=== PATIENT | female | born 1945 | race Caucasian/White ===

== ENCOUNTER → 2018-01-14 16:57 | Outpatient (CLI) | payer MEDICARE, SELFPAY | PROVIDERS: Family Provider Family Medicine; PCP Family Medicine; Visit Provider Family Medicine | DX: N39.0 Urinary tract infection, site not specified (principal); Z87.442 Personal history of urinary calculi | CPT/HCPCS: 87086; 87088 ==

== ENCOUNTER → 2018-03-08 14:01 | Outpatient (CLI) | payer MEDICARE, SELFPAY ==
[2018-03-08 15:34] LABS: Absolute Neutrophil Count 3.4 X10^3/uL (2.0-7.7); Basophil# 0.04 X10^3/uL; Basophil% 0.6 % (0-1); Eosinophil# 0.12 X10^3/uL; Eosinophils% 1.8 % (0-5); Hematocrit 40.8 % (37-47); Hemoglobin 13.5 g/dl (12.0-15.0); Lymphocyte % 40.7 % (19-41); Mean Corp Hgb Conc 33.1 g/gl (32-36); Mean Corpuscular Hgb 30.3 pg (27.0-32.0); Mean Corpuscular Volume 91.7 fL (81-99); Mean Platelet Vol. 12.1 fl (6.2-12.0); Monocyte# 0.41 X10^3/uL; Monocyte% 6.2 % (0-10); Neutrophil # 3.36 X10^3/uL (2.7-7.7); Neutrophil % 50.5 % (47-70); Platelet Count 200 K/mm3 (150-450); RBC Distribution Width CV 13.2 % (11.6-14.6); RBC Distribution Width SD 43.7 fl (35.1-43.9); Red Blood Count 4.45 M/mm3 (4.2-5.4); White Blood Count 6.6 K/mm3 (4.4-11.0)
[2018-03-08 15:39] LABS: POSITIVE COUNT NO; POSITIVE DIFFERENTIAL NO; POSITIVE MORPHOLOGY NO
[2018-03-08 15:56] LABS: Anion Gap 5 (5-15); BUN 19 mg/dL (7-18); BUN/Creat Ratio 21.8 RATIO (10-20); Calcium,Total 9.3 mg/dL (8.5-10.1); Chloride 108 mmol/L (98-107); Creatinine, Serum 0.87 mg/dL (0.55-1.02); EST Glomerular Filtration Rate 68 mL/min (>60); Est Glom Filt Rate - Afr Amer 82 mL/min (>60); Glucose 81 mg/dL (74-106); Potassium 4.3 mmol/L (3.5-5.1); Sodium Level 144 mmol/L (136-145); Thyroid Stim Hormone (TSH) 3.18 uIU/mL (0.358-3.74)
[2018-03-08 16:21] LABS: Vitamin D,25 Hydroxy 25.1 ng/mL (29.95-100.01)
== END ==
PROVIDERS: Visit Provider Family Medicine
DX: I10 Essential (primary) hypertension (principal); E55.9 Vitamin D deficiency, unspecified; E78.5 Hyperlipidemia, unspecified
CPT/HCPCS: 36415; 80048; 82306; 84443; 85025

== ENCOUNTER → 2018-08-30 13:31 | Outpatient (CLI) | payer MEDICARE, SELFPAY ==
[2018-08-30 15:54] LABS: Anion Gap 6 (5-15); BUN 16 mg/dL (7-18); BUN/Creat Ratio 20.6 RATIO (10-20); Chloride 106 mmol/L (98-107); Creatinine, Serum 0.78 mg/dL (0.55-1.02); EST Glomerular Filtration Rate 78 mL/min (>60); Est Glom Filt Rate - Afr Amer 94 mL/min (>60); Glucose 89 mg/dL (74-106); Potassium 3.9 mmol/L (3.5-5.1); Sodium Level 141 mmol/L (136-145); T4 Free Direct 1.02 ng/dL (0.76-1.46); Thyroid Stim Hormone (TSH) 2.14 uIU/mL (0.358-3.74)
--- OUTSIDE RECORDS SUMMARY | 2018-12-04 03:59 | XMS RPT_ITS ---
:1945 Author Organization OHIP Support Name Relationship Address Phone NINO STAFFORD Unavailable [address] + [place] [address] AMBER STAFFORD Unavailable [address] + [place] [address] R Unavailable Unavailable Unavailable RIVERA NINO Unavailable [address] + [place] [address] RIVERA, AMBER Unavailable [address] + [place] [address] R Unavailable Unavailable Unavailable NINO STAFFORD Unavailable [address] + [place] [address] RIVERA, AMBER Unavailable [address] + [place] [address] R Unavailable Unavailable Unavailable RIVERA NINO Unavailable [address] + [place] [address] RIVERA, AMBER Unavailable [address] + [place] [address] R Unavailable Unavailable Unavailable NINO STAFFORD Unavailable [address] + [place] [address] RIVERA, AMBER Unavailable [address] + [place] [address] R Unavailable Unavailable Unavailable NINO STAFFORD Unavailable [address] + [place] [address] RIVERA, AMBER Unavailable [address] + [place] [address] R Unavailable Unavailable Unavailable Care Team Providers Name Role Phone Rolan Temple Attending Unavailable Rolan Temple Primary Care Unavailable Rolan Temple Attending Unavailable Rolan Temple Primary Care Unavailable Rolan Temple Attending Unavailable Rolan Temple Primary Care Unavailable Chante Iverson Attending Unavailable Rolan Temple Referring Unavailable Rolan Temple Attending Unavailable Chante Iverson Attending Unavailable Rolan Temple Referring Unavailable PROBLEMS PROBLEMS DATE TYPE CONDITION / CODE ATTENDING STATUS SOURCE 08/30/2018 Unknown I10 - Essential Rolan Temple Active [place] (primary) Community hypertension / Hospital I10(ICD-10) Repository 08/30/2018 Unknown E55.9 - Vitamin D Rolan Temple Active [place] deficiency, Community unspecified / Hospital E55.9(ICD-10) Repository 08/30/2018 Unknown R41.840 - Attention Rolan Temple Active [place] and concentration Community deficit / Hospital R41.840(ICD-10) Repository 08/30/2018 Unknown E78.5 - Rolan Temple Active [place] Hyperlipidemia, Community unspecified / Hospital E78.5(ICD-10) Repository 02/28/2018 Unknown I25.10 - Zayra Active [place] Atherosclerotic heart Chante Santiago [facility] disease [facility] coronary artery Repository without angina pectoris / I25.10(ICD-10) 02/28/2018 Unknown I35.0 - Nonrheumatic Zayra Active [place] aortic (valve) Chante Santiago [facility] stenosis / Hospital I35.0(ICD-10) Repository 02/28/2018 Unknown E78.00 - Pure Iverson, Active [place] hypercholesterolemia, Chante Santiago [facility] unspecified / Hospital E78.00(ICD-10) Repository 01/15/2018 Unknown N39.0 - Urinary tract Rolan Temple Active [place] infection, site not Community specified / Hospital N39.0(ICD-10) Repository 01/15/2018 Unknown Z87.442 - Personal Rolan Temple Active [place] history of urinary Community calculi / Hospital Z87.442(ICD-10) Repository PROCEDURES PROCEDURES No Procedure Records FoundRESULTS RESULTS CARDIOLOGY VISIT Observed: 09/23/2018 Status: F Source: [place] REPORT 6:44 AM [facility] REPOSITORY [facility] [address] [place] [address] [address] [place] [address] OFFICE VISIT Date of Service: 09/19/18 MR#: [id number] Acct: [id number] Name: CAT STAFFORD Rep #: [id number] : 1945 Provider: Chante Iverson Age/Sex: 73/F Location: [facility] Status: Signed HPI HPI Details: CAT STAFFORD, is a 73 F who presents to the office today for a follow-up visit. She is a lady with a history of coronary artery disease status post carotid bypass surgery with a left internal mammary artery to left anterior descending artery. She subsequently had an angioplasty and stenting of her circumflex artery. She also has a history of nonrheumatic aortic stenosis, hypertension and hyperlipidemia. From a cardiac standpoint, patient is doing well. She has lost 18 pounds this last year, a total of 36 lbs over the last 2 years. This was intentional. She has adjusted her diet. She does not have any chest discomfort/heaviness/tightness. Her exercise tolerance is stable for her age. She exercises 100 minutes 4 times a week. She does not have any worsening symptoms of shortness of breath. She does not have any orthopnea. She denies PND. She does not have any symptoms of congestive heart failure. She does not have any palpitations that she is aware of. She does not have any lightheadedness or dizziness. She does not have any near-syncope or syncope. She does not have any lower extremity edema. She does not have any symptoms of claudication. She will be going to [place] for 6 weeks. Intake Vital Signs09/19/18 Height 5 ft 3 in 09/19/18 Weight: 148 lb 09/19/18 Body Mass Index (BMI) 26.2 09/19/18 Blood Pressure 138/80 H 09/19/18 Blood Pressure Location Lt brachial Intake Visit Reasons: 6 M FU (we moved from [facility]) Ladle Operator Required: No Accompanied by: none Is patient in pain?: No Allergies codeine Allergy (Verified 09/19/18 09:38) Unknown Sulfa (Sulfonamide Antibiotics) Allergy (Verified 09/19/18 09:38) Unknown atorvastatin [From Lipitor] Adverse Reaction (Severe, Verified 09/19/18 09:38) Myalgias Medications Clopidogrel Bisulfate [Plavix] 75 mg PO DAILY 09/24/13 [History Confirmed 09/19/18] Metoprolol(XL)Succ [Toprol Xl] 25 mg PO BID 09/24/13 [History Confirmed 09/19/18] Ultra [facility]ens 1 tab PO DAILY 09/24/13 [History Confirmed 09/19/18] aspirin 81 mg tablet,delayed release 81 mg PO QDAY 08/28/17 [History Confirmed 09/19/18] lisinopril 5 mg tablet 5 mg PO QDAY 08/28/17 [History Confirmed 09/19/18] pantoprazole DR 40 mg granules delayed-release for susp in packet 40 mg PO QDAY 08/28/17 [History Confirmed 09/19/18] pravastatin 40 mg tablet 40 mg PO QHS 08/28/17 [History Confirmed 09/19/18] cholecalciferol (vitamin D3) 400 unit capsule 5,000 unit PO DAILY cap 09/19/18 [History Confirmed 09/19/18] ON LICENSE OF [facility] Medical History Encounter for long-term (current) use of other medications (Chronic) Diabetes mellitus, type II (Chronic) Hyperlipidemia (Chronic) Hypertension (Chronic) Paroxysmal ventricular tachycardia (Chronic) Nonrheumatic aortic (valve) stenosis (Chronic) Atherosclerotic heart disease of [place] coronary artery without angina pectoris (Chronic) Surgical History History of coronary artery stent placement (Chronic) H/O single vessel coronary artery bypass (Chronic) Family History Father CAD (coronary artery disease) Mother Atrial fibrillation Cancer Sister Atrial fibrillation Hypertension Social History Smoking Status: Never smoker ROS Const Const: Negative for body ache, fever(s), chills, night sweats, daytime sleepiness, difficulty sleeping, weight gain, weight loss, increased appetite, poor appetite, anorexia or other ENT ENT: Negative for balance problems Cardio Chest Pain: No Edema: None Muscle aches with walking: None Resp Respiratory: Negative for SOB with activity, SOB at rest, SOB orthopnea\SOB lying down, Coughing up blood/hemoptysis, chest congestion, pain on inspiration, snoring, stridor, wheezing, crackles, paroxysmal nocturnal dyspnea or other GI GI: Negative nausea, vomiting, heartburn, constipation, belching, bloating, cramping, vomiting blood/hematemesis, bright, red blood in stools, black,tarry stools, loose stools, Difficulty Swallowing or other Musc Musc: Negative for balance problems Cardiology Exam Const Appearance: cooperative, healthy appearing, well developed, well groomed and no acute distress Nutritional Appearance: well nourished and average body habitus Orientation: alert, awake and oriented x3 Head Head: normal to inspection, normocephalic and atraumatic Ears: hearing grossly normal bilaterally and external ears normal Nose: external nose normal, nares normal, no nasal discharge Face and Sinus: face symmetric Mouth: moist mucous membranes Teeth and gingiva: dentition normal Throat: posterior oropharynx normal, tonsils normal and uvula midline Eyes General: appearance normal, both eyes and all related structures Eyelids: eyelids normal Conjunctivae: conjunctivae normal Pupils: PERRL, normal by confrontation and accommodation normal EOM: EOM intact bilaterally Neck Neck: normal visual inspection, trachea midline and no JVD JVD: +5 Carotids: normal carotid upstroke and bounding pulses Chest Chest inspection: normal inspection of the chest, symmetric chest movement and normal respiratory effort Auscultation: Bilateral: Clear to Auscultation Cardio Palpation: normal PMI Rate: regular rate Rhythm: regular rhythm Heart sounds: S1 normal, S2 normal and murmur Murmur: soft, early systolic, LLSB and Grade 2/6 GI GI: normal to inspection, soft, no hepatosplenomegaly and bowel sounds present Neuro General: alert, awake, oriented x3, no focal sensory deficit, gait normal and moves all extremities Skin Skin: no rashes or lesions noted Extremities Pulses: Normal: Right Femoral Pulse, Left Femoral Pulse, Right Dorsalis Pedis Pulse, Left Dorsalis Pedis Pulse, Right Posterior Tibial Pulse, Left Posterior Tibial Pulse, Right Radial Pulse, Left Radial Pulse Lower Extremity Edema: None: Bilateral Musculoskel Musculoskeletal: No joint tenderness Psych Psychological: normal affect Assessment AND Plan 1. Atherosclerosis of [place] coronary artery of [place] heart without angina pectoris I25.10 KIM Calderon Stable, from a cardiac standpoint patient does not have any symptoms of angina. We recommend that they continue with current aggressive medical management and risk factor modification. 2. Nonrheumatic aortic (valve) stenosis I35.0 KIM Calderon Recent echocardiogram has been reviewed. We will continue to monitor by history, exam and echocardiograms as deemed appropriate. 3. Essential hypertension I10 KIM Calderon Blood pressure is well controlled on current medications, we do not recommend any changes at this time. 4. Pure hypercholesterolemia E78.00 KIM Calderon Recent lipid profile demonstrates total cholesterol 183, HDL 72, LDL 89. Will not make any adjustments. 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 transplanted heart: [place] heart Nonrheumatic aortic (valve) stenosis I35.0 Essential hypertension I10 Hypertension type: essential hypertension Pure hypercholesterolemia E78.00 Hyperlipidemia type: pure hypercholesterolemia Coding Level of Care Code Off vis,est,level 3 Diagnoses Atherosclerosis of [place] coronary artery of [place] heart without angina pectoris I25.10 [place] vs. transplanted heart: [place] heart Nonrheumatic aortic (valve) stenosis I35.0 Essential hypertension I10 Hypertension type: essential hypertension Pure hypercholesterolemia E78.00 Hyperlipidemia type: pure hypercholesterolemia Supplemental Info Supplemental Information Stress test in 2014 was negative for ischemia at a moderate workload. Echocardiogram in 2013 demonstrated normal LV size with an estimated ejection fraction of 65%. Mild tricuspid insufficiency. RVSP 28 mmHg. Labs LDL Cholesterol 89 mg/dL (0-130) 08/06/17 HDL Cholesterol 72 mg/dL (40-) 08/06/17 Triglycerides 110 mg/dL (-199) 08/06/17 VLDL Cholesterol 22 mg/dL (5-40) 08/06/17 09/19/18 1017 <Electronically signed by Chante ALVAREZ> Date Chante ALVAREZ 09/23/18 0644<Electronically signed by Abel Weems MD> Cosigner Signature: Date (if applicable) Abel Weems MD CC: Rolan Temple MD SCREENING MAMM (CAD), Observed: 09/16/2018 Status: F Source: [place] BILAT 12:47 PM [facility] REPOSITORY [facility] Imaging Services [address] [place] [id number] SCREENING MAMM (CAD), BILAT MR#: [id number] Acct: [id number] Name: CAT STAFFORD Rep #: [id number] : 1945 F 73 From: Donovan Roche MD PCP: Rolan Temple MD Status: REG CLI Study: SCREENING MAMM (CAD), BILAT Date of Exam: 09/16/18 Exam# [id number] Ordering Dr: Rolan Temple MD MAMMOGRAPHY - BILATERAL SCREENING REASON FOR EXAM: Female, 73 years old. Routine annual screening examination. PERTINENT HISTORY: Non-contributory. TECHNIQUE: Digital bilateral breast jay (3D mammographic acquisition) in the CC and MLO projections. 2-D mediolateral oblique (MLO) and craniocaudad (CC) views of both breasts were obtained. CAD: Full Field Digital Mammography with Computer Added Detection was performed. COMPARISON: Comparison is made with prior study dated June 29, 2017 and June 26, 2016. FINDINGS: Breast Composition: The breasts are almost entirely fatty. There are no dominant masses or suspicious calcifications. Stable 5 mm well-defined nodule in the upper outer aspect of the right breast. Stable small benign-appearing bilateral axillary lymph nodes. No other significant abnormalities are identified. There has been no significant change since the prior study. BI/SCREENING MAMM (CAD), BILAT IMPRESSION: Stable bilateral screening mammogram. Yearly follow-up mammogram recommended. (A) ASSESSMENT CATEGORY: BIRADS Category 2: Benign. A letter regarding these results will be sent to the patient by the facility within 30 days. Approximately 10% of breast cancers are not detected by mammography. A normal mammogram should not delay biopsy of a clinically suspicious abnormality. [id number] Electronically Signed: Donovan Roche MD at 14:42 EST Tel [phone], Service support , CC: Rolan Temple MD [employer]: Signed BASIC METABOLIC Collected: 08/30/2018 Status: F Source: [place] PROFILE (BMP) 1:35 PM [facility] REPOSITORY TYPE CODE TESTS RESULT OUT OF RANGE REFERENCE UNITS LAB L501.0100 74-106 mg/dL Normal GLU 89 Result Comment: Please note revised GLUCOSE reference range effective 2017. LAB L501.1000 7-18 mg/dL Normal BUN 16 LAB L501.1100 0.55-1.02 mg/dL Normal CREAT,SERUM 0.78 Result Comment: The validity of the calculated GFR AND GFRAA in patients over 70 years has not been determined. Clinical correlation is essential. LAB L501.1110 >60 mL/min Normal EST GFR 78 Result Comment: Non- GFR Calc LAB L501.1115 >60 mL/min Normal EST GFR - AA 94 Result Comment: GFR Calc LAB L501.1300 10-20 RATIO High BUN/CRE 20.6 LAB L501.2200 8.5-10.1 mg/dL CA Normal 9.0 LAB L501.5300 136-145 mmol/L NA Normal 141 LAB L501.5600 3.5-5.1 mmol/L K Normal 3.9 LAB L501.5900 98-107 mmol/L CL Normal 106 LAB L501.6100 21.0-32.0 mmol/L Normal CO2 29.0 LAB L501.6200 5-15 Normal GAP 6 Performed By: #### L500.2500, L501.9520, L506.0400 #### [facility] [address] [place], [address] THYROID STIM HORMONE Collected: 08/30/2018 Status: F Source: [place] (TSH) 1:35 PM [facility] REPOSITORY TYPE CODE TESTS RESULT OUT OF RANGE REFERENCE UNITS LAB L501.9520 0.358-3.74 uIU/mL Normal TSH 2.14 Performed By: #### L500.2500, L501.9520, L506.0400 #### [facility] [address] [place], [address] T4 FREE DIRECT Collected: 08/30/2018 Status: F Source: [place] 1:35 PM [facility] REPOSITORY TYPE CODE TESTS RESULT OUT OF RANGE REFERENCE UNITS LAB L506.0400 0.76-1.46 ng/dL Normal T4 FREE 1.02 DIRECT Performed By: #### L500.2500, L501.9520, L506.0400 #### [facility] [address] [place], [place], [address] VITAMIN D,25 HYDROXY Collected: 08/30/2018 Status: F Source: [place] 1:35 PM [facility] REPOSITORY TYPE CODE TESTS RESULT OUT OF RANGE REFERENCE UNITS LAB L506.1000 29.95-100.01 ng/mL Normal Vitamin D 37.0 25-OH Result Comment: Vitamin D 25(OH) Status Range Deficiency <20 ng/mL (50nmol/L) Insuffciency 20 - 30 ng/mL (50 - 75 nmol/L) Sufficiency 30 - 100 ng/mL (75 - 250 nmol/L) Toxicity >100 ng/mL (>250 nmol/L) Performed By: #### L506.1000 #### [facility] [address] [place], [place], [address] CBC W/DIFF, AUTOMATED Collected: 03/08/2018 Status: F Source: [place] 2:04 PM [facility] REPOSITORY TYPE CODE TESTS RESULT OUT OF RANGE REFERENCE UNITS LAB L100.1000 4.4-11.0 K/mm3 Normal WBC 6.6 LAB L100.1200 4.2-5.4 M/mm3 Normal RBC 4.45 LAB L100.1300 12.0-15.0 g/dl Normal HGB 13.5 LAB L100.1400 37-47 % Normal HCT 40.8 LAB L100.1500 81-99 fL Normal MCV 91.7 LAB L100.1600 27.0-32.0 pg Normal MCH 30.3 LAB L100.1700 32-36 g/gl Normal MCHC 33.1 LAB L100.1810 11.6-14.6 % Normal RDW CV 13.2 LAB L100.1820 35.1-43.9 fl Normal RDW SD 43.7 LAB L100.1900 150-450 K/mm3 Normal PLT 200 LAB L100.2000 6.2-12.0 fl High MPV 12.1 LAB L100.2100 47-70 % Normal NEUT% 50.5 LAB L100.2200 19-41 % Normal LY% 40.7 LAB L100.2300 0-10 % Normal MONO% 6.2 LAB L100.2400 0-5 % Normal EO% 1.8 LAB L100.2500 0-1 % Normal BASO% 0.6 LAB L100.2550 0.0-0.9 % Normal IM GRAN % 0.200 Result Comment: IG% - Immature Granulocytes (promyelocytes, myelocytes and metamyelocytes) > 1% indicates that a LEFT SHIFT is Present. LAB L100.2620 2.0-7.7 X10 3/uL Normal Absolute Neut 3.4 LAB L100.2720 0.83-4.51 X10 3/ul Normal Absolute Lymph 2.70 Performed By: #### L100.0100 #### [facility] [address] [place], [address] BASIC METABOLIC Collected: 03/08/2018 Status: F Source: [place] PROFILE (BMP) 2:04 PM [facility] REPOSITORY TYPE CODE TESTS RESULT OUT OF RANGE REFERENCE UNITS LAB L501.0100 74-106 mg/dL Normal GLU 81 Result Comment: Please note revised GLUCOSE reference range effective 2017. LAB L501.1000 7-18 mg/dL High BUN 19 LAB L501.1100 0.55-1.02 mg/dL Normal CREAT,SERUM 0.87 Result Comment: The validity of the calculated GFR AND GFRAA in patients over 70 years has not been determined. Clinical correlation is essential. LAB L501.1110 >60 mL/min Normal EST GFR 68 Result Comment: Non- GFR Calc LAB L501.1115 >60 mL/min Normal EST GFR - AA 82 Result Comment: GFR Calc LAB L501.1300 10-20 RATIO High BUN/CRE 21.8 LAB L501.2200 8.5-10.1 mg/dL CA Normal 9.3 LAB L501.5300 136-145 mmol/L NA Normal 144 LAB L501.5600 3.5-5.1 mmol/L K Normal 4.3 LAB L501.5900 98-107 mmol/L High CL 108 LAB L501.6100 21.0-32.0 mmol/L Normal CO2 31.0 LAB L501.6200 5-15 Normal GAP 5 Performed By: #### L500.2500, L501.9520 #### [facility] [address] [place], [address] THYROID STIM HORMONE Collected: 03/08/2018 Status: F Source: [place] (TSH) 2:04 PM [facility] REPOSITORY TYPE CODE TESTS RESULT OUT OF RANGE REFERENCE UNITS LAB L501.9520 0.358-3.74 uIU/mL Normal TSH 3.18 Performed By: #### L500.2500, L501.9520 #### [facility] [address] [place], [address] VITAMIN D,25 HYDROXY Collected: 03/08/2018 Status: F Source: [place] 2:04 PM [facility] REPOSITORY TYPE CODE TESTS RESULT OUT OF REFERENCE UNITS RANGE LAB L506.1000 29.95-100.01 ng/mL Low Vitamin D 25.1 25-OH Result Comment: Vitamin D 25(OH) Status Range Deficiency <20 ng/mL (50nmol/L) Insuffciency 20 - 30 ng/mL (50 - 75 nmol/L) Sufficiency 30 - 100 ng/mL (75 - 250 nmol/L) Toxicity >100 ng/mL (>250 nmol/L) Performed By: #### L506.1000 #### [facility] [address] [place], [address] CARDIOLOGY VISIT Observed: 02/27/2018 Status: F Source: [place] REPORT 8:22 AM [facility] REPOSITORY [place] [facility] [address] [place] [address] OFFICE VISIT Date of Service: 02/26/18 MR#: [id number] Acct: [id number] Name: CAT STAFFORD Rep #: [id number] : 1945 Provider: Chante Iverson Age/Sex: 72/F [place] [facility] [place] Signed HPI HPI Details: CAT STAFFORD, is a 72 F who presents to the office today for a follow-up visit. She is a lady with a history of coronary artery disease status post carotid bypass surgery with a left internal mammary artery to left anterior descending artery. She subsequently had an angioplasty and stenting of her circumflex artery. She also has a history of nonrheumatic aortic stenosis, hypertension and hyperlipidemia. From a cardiac standpoint, patient is doing well. She has lost 14 pounds since her last office visit. This was intentional. She has adjusted her diet. She does not have any chest discomfort/heaviness/tightness. Her exercise tolerance is stable for her age. She exercises 90 minutes 4 times a week. She does not have any worsening symptoms of shortness of breath. She does not have any orthopnea. She denies PND. She does not have any symptoms of congestive heart failure. She does not have any palpitations that she is aware of. She does not have any lightheadedness or dizziness. She does not have any near- syncope or syncope. She does not have any lower extremity edema. She does not have any symptoms of claudication. Intake Vital Signs02/26/18 Height 5 ft 3 in 02/26/18 Weight: 156 lb 02/26/18 Body Mass Index (BMI) 27.6 02/26/18 Blood Pressure 138/74 02/26/18 Pulse Rate 64 Intake Visit Reasons: 6 M FU Allergies codeine Allergy (Verified 09/24/13 11:10) Unknown Sulfa (Sulfonamide Antibiotics) Allergy (Verified 09/24/13 11:10) Unknown atorvastatin [From Lipitor] Adverse Reaction (Severe, Verified 08/28/17 18:39) Myalgias Medications Clopidogrel Bisulfate [Plavix] 75 mg PO DAILY 09/24/13 [History Confirmed 08/28/17] Metoprolol(XL)Succ [Toprol Xl] 25 mg PO BID 09/24/13 [History Confirmed 08/28/17] [facility] 1 tab PO DAILY 09/24/13 [History Confirmed 08/28/17] aspirin 81 mg tablet,delayed release 81 mg PO QDAY 08/28/17 [History Confirmed 08/28/17] cholecalciferol (vitamin D3) 400 unit capsule 400 unit PO TID cap 08/28/17 [History Confirmed 08/28/17] lisinopril 5 mg tablet 5 mg PO QDAY 08/28/17 [History Confirmed 08/28/17] pantoprazole DR 40 mg granules delayed-release for susp in packet 40 mg PO QDAY 08/28/17 [History Confirmed 08/28/17] pravastatin 40 mg tablet 40 mg PO QHS 08/28/17 [History Confirmed 08/28/17] ON LICENSE OF [facility] Medical History Encounter for long-term (current) use of other medications (Chronic) Diabetes mellitus, type II (Chronic) Hyperlipidemia (Chronic) Hypertension (Chronic) Paroxysmal ventricular tachycardia (Chronic) History of coronary artery stent placement (Chronic) Nonrheumatic aortic (valve) stenosis (Chronic) Atherosclerotic heart disease of [place] coronary artery without angina pectoris (Chronic) Surgical History H/O single vessel coronary artery bypass (Chronic) Family History Father CAD (coronary artery disease) Mother Atrial fibrillation Cancer Sister Atrial fibrillation Hypertension Social History Smoking Status: Never smoker ROS Const Const: Negative for body ache, fever(s), chills, night sweats, daytime sleepiness, difficulty sleeping, weight gain, weight loss, increased appetite, poor appetite, anorexia or other ENT ENT: Negative for balance problems Cardio Chest Pain: No Edema: None Muscle aches with walking: None Resp Respiratory: Negative for SOB with activity, SOB at rest, SOB orthopnea\SOB lying down, Coughing up blood/hemoptysis, chest congestion, pain on inspiration, snoring, stridor, wheezing, crackles, paroxysmal nocturnal dyspnea or other GI GI: Negative nausea, vomiting, heartburn, constipation, belching, bloating, cramping, vomiting blood/hematemesis, bright, red blood in stools, black,tarry stools, loose stools, Difficulty Swallowing or other Musc Musc: Negative for balance problems Cardiology Exam Const Appearance: cooperative, healthy appearing, well developed, well groomed and no acute distress Nutritional Appearance: well nourished and average body habitus Orientation: alert, awake and oriented x3 Head Head: normal to inspection, normocephalic and atraumatic Ears: hearing grossly normal bilaterally and external ears normal Nose: external nose normal, nares normal, no nasal discharge Face and Sinus: face symmetric Mouth: moist mucous membranes Teeth and gingiva: dentition normal Throat: posterior oropharynx normal, tonsils normal and uvula midline Eyes General: appearance normal, both eyes and all related structures Eyelids: eyelids normal Conjunctivae: conjunctivae normal Pupils: PERRL, normal by confrontation and accommodation normal EOM: EOM intact bilaterally Neck Neck: normal visual inspection, trachea midline and no JVD JVD: +5 Carotids: normal carotid upstroke and bounding pulses Chest Chest inspection: normal inspection of the chest, symmetric chest movement and normal respiratory effort Auscultation: Bilateral: Clear to Auscultation Cardio Palpation: normal PMI Rate: regular rate Rhythm: regular rhythm Heart sounds: S1 normal, S2 normal and murmur Murmur: soft, early systolic, LLSB and Grade 2/6 GI GI: normal to inspection, soft, no hepatosplenomegaly and bowel sounds present Neuro General: alert, awake, oriented x3, no focal sensory deficit, gait normal and moves all extremities Skin Skin: no rashes or lesions noted Extremities Pulses: Normal: Right Femoral Pulse, Left Femoral Pulse, Right Dorsalis Pedis Pulse, Left Dorsalis Pedis Pulse, Right Posterior Tibial Pulse, Left Posterior Tibial Pulse, Right Radial Pulse, Left Radial Pulse Lower Extremity Edema: None: Bilateral Musculoskel Musculoskeletal: No joint tenderness Psych Psychological: normal affect Supplemental Info Stress test in 2014 was negative for ischemia at a moderate workload. Echocardiogram in 2014 demonstrated normal LV size with an estimated ejection fraction of 65%. Mild tricuspid insufficiency. RVSP 28 mmHg. Assessment AND Plan 1. Atherosclerosis of [place] coronary artery of [place] heart without angina pectoris I25.10 Plan - KIM Granados Stable, from a cardiac standpoint patient does not have any symptoms of angina. We recommend that they continue with current aggressive medical management and risk factor modification. 2. Nonrheumatic aortic (valve) stenosis I35.0 Plan - KIM Granados Recent echocardiogram has been reviewed. We will continue to monitor by history, exam and echocardiograms as deemed appropriate. 3. Essential hypertension I10 Plan - KIM Granados Blood pressure is well controlled on current medications, we do not recommend any changes at this time. 4. Pure hypercholesterolemia E78.00 Plan - KIM Granados Recent lipid profile demonstrates total cholesterol 183, HDL 72, LDL 89. Will not make any adjustments. We will continue to monitor Plan Detail Additional Comments - KIM Granados . The above patient was discussed with Dr. Weems, he agrees with plan of care. Thank you for allowing us to participate in patient's plan of care, if you have any questions please do not hesitate to call. This note was generated using a voice recognition system and there may be incorrect words, spelling or punctuation errors that were not noted when reviewing the office note prior to saving. Follow Up 02/26/18 (6-9 months [employer]) Coding Level of Care Code Off vis,est,level 3 Diagnoses Atherosclerosis of [place] coronary artery of [place] heart without angina pectoris I25.10 [place] vs. transplanted heart: [place] heart Nonrheumatic aortic (valve) stenosis I35.0 Essential hypertension I10 Hypertension type: essential hypertension Pure hypercholesterolemia E78.00 Hyperlipidemia type: pure hypercholesterolemia Coding Level of Care Code Off vis,est,level 3 Diagnoses Atherosclerosis of [place] coronary artery of [place] heart without angina pectoris I25.10 [place] vs. transplanted heart: [place] heart Nonrheumatic aortic (valve) stenosis I35.0 Essential hypertension I10 Hypertension type: essential hypertension Pure hypercholesterolemia E78.00 Hyperlipidemia type: pure hypercholesterolemia 02/26/18 1625 <Electronically signed by Chante ALVAREZ> Date Chante ALVAREZ 02/27/18 0822<Electronically signed by Abel Weems MD> Cosigner Signature: Date (if applicable) Abel Weems MD CC: Rolan Temple Observed: 01/14/2018 Status: F Source: [place] CULTURE, URINE 4:59 PM [facility] REPOSITORY Urine Culture ORGANISM 1: Mixed Gram Pos AND Gram Neg Org [place] Count 50,000-80,000 MIX CULTURE Mixed contaminants. Submit a new specimen if indicated. Performed By: #### M100.0650 #### [facility] [place], [address] ALLERGIES ALLERGIES DATE TYPE / CODE NAME / CODE REACTION SEVERITY SOURCE 09/19/2018 Drug Sulfa Unknown Unknown [facility] Allergy/4160 (Sulfonamide [facility] 92601(SNOMED Antibiotics)/ Repository CT) [id number](RX NORM) 09/19/2018 Drug codeine/F0060 Unknown Unknown [facility] Allergy/4160 03435(RXNORM) Hospital [address]26(SNOMED Repository CT) 09/19/2018 Drug atorvastatin/ MYALGIAS SV [facility] Allergy/4160 [id number](RX Hospital 21857(SNOMED NORM) Repository CT) ENCOUNTERS ENCOUNTERS ADMIT/DISCHARGE ACCOUNT ADMITTING ENCOUNTER LOCATION SOURCE NUMBER CLASS 09/19/2018/ [id number] Ambulatory BMSBuilding:B [place] [address] [facility] Repository 09/16/2018 [id number] Amb[place] [facility] ing:OPBI Repository 08/30/2018 [id number] Ambulatory [place] [facility] ing:BFHLAB Repository 03/08/2018 [id number] Ambulatory [place] [facility] ing:BFHLAB Repository 02/26/2018/ [id number] Ambulatory BMSBuilding:B [place] [address] 6 [facility] Repository 01/14/2018 [id number] Ambulatory [place] [facility] ing:BFHLAB Repository PAYERS PAYERS ENCOUNTER GUARANTOR PAYER SUBSCRIBER SOURCE 09/19/2018 CAT A Primary Insurance:AETNA CAT A [place] [id number] E MCRPolicy Number: HENSHAWDOB: [facility] [id number] [facility] Date:1685-88-34EX BOX Repository [place], [place] [address], [place] [address]Fjo: [phone]: [phone] 09/19/2018 Secondary NOT GIVENUNK [place] Insurance:SELF PAY [facility] INSURANCEPolicy Number: Hospital Effective Repository Date:2018-09-16 09/16/2018 NINO Quinones Primary Insurance:AETNA CAT A [place] HENSHAW BOX MCRPolicy Number: HENSHAWDOB: [address] [id number] [address]Cpr: Date:6023-85-18IU BOX Repository [id number] [place] [address] () [phone]: 09/16/2018 Secondary NOT GIVENUNK [place] Insurance:SELF PAY Community INSURANCEPolicy Number: Hospital Effective Repository Date:2018-06-25 08/30/2018 CAT A Primary Insurance:AETNA CAT A [place] [id number] E MCRPolicy Number: HENSHAWDOB: Community [place] MEBPNGWMEffective [id number] Date:7350-84-97MX BOX Repository [place], [place] [address], [place] [address]Hpt: [phone]: [phone] 08/30/2018 Secondary NOT GIVENUNK [place] Insurance:SELF PAY Community INSURANCEPolicy Number: Hospital Effective Repository Date:2018-08-30 03/08/2018 NINO Quinones Primary Insurance:AETNA CAT A [place] [id number] [facility] MCRPolicy Number: HENSHAWDOB: [facility] BPNGWMEffective [id number] Date:6669-43-00[address] Repository , [place] [address]Bsu: [id number], [place] ) [phone]: [phone] 03/08/2018 Secondary NOT GIVENUNK [place] Insurance:SELF PAY Community INSURANCEPolicy Number: Hospital Effective Repository Date:2018-03-08 02/26/2018 NINO Quinones Primary Insurance:AETNA CAT A [place] [id number] [facility] MCRPolicy Number: HENSHAWDOB: [facility] MEBPNGWMEffective [id number] Health Hospital Date:8239-21-08JE [address], [place] [address]Ykd: [id number], [place] [address]WP: [phone] 02/26/2018 Secondary NOT GIVENUNK [place] Insurance:SELF PAY Community INSURANCEPolicy Number: Hospital Effective Repository Date:2018-02-26 01/14/2018 NINO Quinones Primary Insurance:AETNA CAT A [place] [id number] [facility] HENSHAWDOB: [facility]MEffe[facility] [id number] Health Hospital Date:8278-13-10TN B[address]ository [address], [place] [address]Bqh: [id number] BECCA SOOD [address]WP: [phone] 01/14/2018 Secondary NOT GIVENUNK [place] Insurance:SELF PAY [facility] INSURANCEPolicy Number: Hospital Effective Repository Date:2018-01-14
== END ==
PROVIDERS: Family Provider Family Medicine; PCP Family Medicine; Visit Provider Family Medicine
DX: I10 Essential (primary) hypertension (principal); E55.9 Vitamin D deficiency, unspecified; E78.5 Hyperlipidemia, unspecified; R41.840 Attention and concentration deficit
CPT/HCPCS: 36415; 80048; 82306; 84439; 84443

== ENCOUNTER → 2018-09-16 12:44 | Outpatient (CLI) | payer MEDICARE, SELFPAY ==
[2018-02-26 16:20] VITALS: BMI 27.6
--- NOTE | 2018-09-16 12:46 | BI_ITS ---
MAMMOGRAPHY - BILATERAL SCREENING REASON FOR EXAM: Female, 73 years old. Routine annual screening examination. PERTINENT HISTORY: Non-contributory. TECHNIQUE: Digital bilateral breast jay (3D mammographic acquisition) in the CC and MLO projections. 2-D mediolateral oblique (MLO) and craniocaudad (CC) views of both breasts were obtained. CAD: Full Field Digital Mammography with Computer Added Detection was performed. COMPARISON: Comparison is made with prior study dated June 29, 2017 and June 26, 2016. FINDINGS: Breast Composition: The breasts are almost entirely fatty. There are no dominant masses or suspicious calcifications. Stable 5 mm well-defined nodule in the upper outer aspect of the right breast. Stable small benign-appearing bilateral axillary lymph nodes. No other significant abnormalities are identified. There has been no significant change since the prior study. BI/SCREENING MAMM (CAD), BILAT IMPRESSION: Stable bilateral screening mammogram. Yearly follow-up mammogram recommended. (A) ASSESSMENT CATEGORY: BIRADS Category 2: Benign. A letter regarding these results will be sent to the patient by the facility within 30 days. Approximately 10% of breast cancers are not detected by mammography. A normal mammogram should not delay biopsy of a clinically suspicious abnormality. [id number] Electronically Signed: Donovan Roche MD at 14:42 EST Tel [phone], Service support ,
== END ==
PROVIDERS: Family Provider Family Medicine; PCP Family Medicine; Visit Provider Family Medicine
DX: Z12.31 Encounter for screening mammogram for malignant neoplasm of breast (principal)
CPT/HCPCS: 77063; 77067

== ENCOUNTER → 2019-04-29 08:24 | Outpatient (CLI) | payer MEDICARE, SELFPAY ==
[2019-04-17 13:44] VITALS: BMI 26.4
[2019-04-29 09:26] LABS: AST(SGOT) 30 U/L (15-37); Alanine Aminotransfer ALT/SGPT 18 U/L (13-56); Albumin, Serum 3.4 g/dL (3.2-5.0); Alkaline Phosphatase 60 U/L (45-117); Bilirubin, Direct 0.33 mg/dL (0.00-0.30); Cholesterol 181 mg/dL (200); Globulin 4.4 g/dL (2.2-4.2); High Density Lipoprotein 89 mg/dL; Protein, Total 7.8 g/dL (6.4-8.2); Triglycerides 97 mg/dL; Very Low Density Lipoprotein 19 mg/dL (5-40)
== END ==
PROVIDERS: Family Provider Family Medicine; PCP Family Medicine; Referring Provider Internal Medicine Cardiovascular Disease; Visit Provider Internal Medicine Cardiovascular Disease
DX: E78.00 Pure hypercholesterolemia, unspecified (principal); I35.0 Nonrheumatic aortic (valve) stenosis
CPT/HCPCS: 36415; 80061; 80076

== ENCOUNTER → 2019-05-05 | Outpatient (CLI) | payer MEDICARE, SELFPAY ==
[2019-04-17 13:44] VITALS: BMI 26.4
--- NOTE | 2019-05-05 13:49 | ECHOD_ITS ---
Reason For Study: Murmur Procedure This was a 2D Doppler, Color Flow transthoracic echocardiogram. Exam performed in department. Left Ventricle Normal LV size. Left ventricular systolic function is normal. Stage 1 diastolic dysfunction. No regional wall motion abnormalities noted. Right Ventricle Normal RV size. Normal systolic function. Atria Normal left atrium. Normal right atrium. Mitral Valve Normal mitral valve. Trivial eccentric mitral valve insufficiency. Tricuspid Valve Normal tricuspid valve. Mild (1+) tricuspid valve insufficiency. Pulmonary artery systolic pressure is 25 mmHg. Aortic Valve Trisinus/trileaflet aortic valve. Mild focal aortic valve calcification. Peak aortic valve gradient 20 mmHg. Mean aortic valve gradient 9 mmHg. Pulmonic Valve Normal pulmonic valve. Great Vessels Normal aortic root. The pulmonary artery is normal size. Normal inferior vena cava. Pericardium/Pleural No pericardial effusion. MMode/2D Measurements & Calculations LVIDd: 4.6 cm IVSd: 1.1 cm LVOT diam: 2.0 cm LVIDs: 2.5 cm LVPWd: 0.98 cm LVOT area: 3.1 cm2 FS: 45.7 % Ao root diam: 3.2 cm LAV(MOD-bp): 47.2 ml LA A4 area: 17.5 cm2 LA dimension: 4.1 cm LAV(MOD-bp) Indexed: 27.7 ml/m2 LAV(MOD-sp2): 44.6 ml LAV(MOD-sp4): 49.7 ml RA A4 area: 13.2 cm2 Time Measurements MV dec time: 0.39 sec Doppler Measurements & Calculations MV E max phuc: 57.2 cm/sec Lat Peak E' Phuc: 7.7 cm/sec Med Peak E' Phuc: 4.9 cm/sec MV A max phuc: 93.3 cm/sec E/E' lat: 7.4 E/E' med: 11.7 MV E/A: 0.61 MV V2 max: 105.9 cm/sec MV P1/2t max phuc: 69.3 cm/sec Ao V2 max: 227.9 cm/sec MV max P.5 mmHg MV P1/2t: 166.8 msec Ao max P.8 mmHg MV V2 mean: 49.5 cm/sec MV dec slope: 121.8 cm/sec2 Ao V2 mean: 139.4 cm/sec MV mean P.1 mmHg Ao mean P.4 mmHg MV V2 VTI: 37.6 cm MVA(P1/2t): 1.3 cm2 Ao V2 VTI: 44.7 cm MVA(VTI): 2.2 cm2 CRUZ(I,D): 1.9 cm2 CRUZ(V,D): 1.9 cm2 LV V1 max: 136.6 cm/sec SV(LVOT): 84.3 ml PA V2 max: 103.0 cm/sec LV V1 max P.5 mmHg LV V1 mean P.0 mmHg LV V1 mean: 76.6 cm/sec LV V1 VTI: 26.9 cm TR max phuc: 225.7 cm/sec TR max P.4 mmHg Interpretation Summary Normal LV size. Left ventricular systolic function is normal. Stage 1 diastolic dysfunction. Mild focal aortic valve calcification. Mean aortic valve gradient 9 mmHg. Ordering Physician: Abel Weems Referring Physician: Rolan Temple Performed By: Blair Munson RCS
== END | disposition home or self-care (01) ==
LOC: CVS 13:47
PROVIDERS: Family Provider Family Medicine; PCP Family Medicine; Referring Provider Internal Medicine Cardiovascular Disease; Visit Provider Internal Medicine Cardiovascular Disease
DX: I35.0 Nonrheumatic aortic (valve) stenosis (principal); R01.0 Benign and innocent cardiac murmurs
CPT/HCPCS: 93306

== ENCOUNTER → 2019-06-06 | Outpatient (CLI) | payer MEDICARE, SELFPAY ==
[2019-04-17 13:44] VITALS: BMI 26.4
[2019-06-06 12:57] LABS: Absolute Lymphocyte Count 1.76 X10^3/uL (0.83-4.51); Absolute Neutrophil Count 3.8 X10^3/uL (2.0-7.7); Basophil# 0.05 X10^3/uL; Basophil% 0.8 % (0-1); Eosinophils% 3.2 % (0-5); Hematocrit 40.8 % (37-47); Hemoglobin 12.7 g/dL (12.0-15.0); Lymphocyte # 1.76 X10^3/ul (4.0); Lymphocyte % 28.3 % (19-41); Mean Corp Hgb Conc 31.1 g/dL (32-36); Mean Corpuscular Hgb 29.3 pg (27.0-32.0); Mean Corpuscular Volume 94.2 fL (81-99); Mean Platelet Vol. 11.2 fl (6.2-12.0); Monocyte# 0.36 X10^3/uL; Monocyte% 5.8 % (0-10); NRBC Flagged by Analyzer 0 % (0-5); Neutrophil # 3.83 X10^3/uL (2.7-7.7); Neutrophil % 61.7 % (47-70); Platelet Count 235 K/mm3 (150-450); RBC Distribution Width CV 13.1 % (11.6-14.6); RBC Distribution Width SD 44.8 fl (35.1-43.9); Red Blood Count 4.33 M/mm3 (4.2-5.4); White Blood Count 6.2 K/mm3 (4.4-11.0)
[2019-06-06 13:24] LABS: AST(SGOT) 21 U/L (15-37); Alanine Aminotransfer ALT/SGPT 19 U/L (13-56); Albumin, Serum 3.6 g/dL (3.2-5.0); Alkaline Phosphatase 55 U/L (45-117); Anion Gap 6 (5-15); BUN 17 mg/dL (7-18); BUN/Creat Ratio 18.8 RATIO (10-20); Calcium,Total 8.8 mg/dL (8.5-10.1); Chloride 106 mmol/L (98-107); EST Glomerular Filtration Rate 65 mL/min (>60); Est Glom Filt Rate - Afr Amer 78 mL/min (>60); Globulin 3.6 g/dL (2.2-4.2); Glucose 91 mg/dL (74-106); Iron 170 ug/dL (50-170); Lipase 118 U/L (73-393); Potassium 4.6 mmol/L (3.5-5.1); Protein, Total 7.2 g/dL (6.4-8.2); Sodium Level 143 mmol/L (136-145)
== END | disposition home or self-care (01) ==
LOC: BFHLAB 08:19
PROVIDERS: Family Provider Family Medicine; PCP Family Medicine; Visit Provider Family Medicine
DX: R10.13 Epigastric pain (principal); R11.2 Nausea with vomiting, unspecified; K27.4 Chronic or unspecified peptic ulcer, site unspecified, with hemorrhage
CPT/HCPCS: 36415; 80053; 83540; 83690; 85025

== ENCOUNTER → 2019-09-09 12:30 | Outpatient (CLI) | payer MEDICARE, SELFPAY ==
[2019-09-09 07:26] VITALS: BMI 26.4
[2019-09-09 12:42] LABS: Mucous, Urine 0 SEEN /hpf (<or=2+); Red Blood Cells-Urine 0 SEEN /hpf (0-5); Squamous Epithelial Cells - UA 0 SEEN /hpf (5-10)
[2019-09-09 13:10] LABS: Color, Urine Yellow (Yellow); Glucose, Dipstick Normal (Normal); Ketone-Dipstick Negative (Negative); Leukocyte Esterase-Dipstick 25 /ul (Negative); Nitrite-Dipstick Negative (Negative); Occult Blood-Urine 10 /ul (Negative); Protein-Dipstick Negative (Negative); Urine Bilirubin Dipstick Negative (Negative); Urine Clarity Clear (Clear); Urine Urobilinogen Normal (Normal)
[2019-09-09 13:23] LABS: Bacteria 2+ /hpf (None Seen); White Blood Cells 0-5 SEEN /hpf (0-5)
== END ==
PROVIDERS: Family Provider Family Medicine; PCP Family Medicine; Referring Provider Physician Assistant Surgical; Visit Provider Physician Assistant Surgical
DX: N30.01 Acute cystitis with hematuria (principal)
CPT/HCPCS: 81001; 87086; 87088; 87186

== ENCOUNTER → 2019-09-13 14:19 | Outpatient (CLI) | payer MEDICARE, SELFPAY ==
[2019-09-13 09:04] VITALS: BMI 26.4
[2019-09-13 14:20] LABS: Mucous, Urine 0 SEEN /hpf (<or=2+); White Blood Cells 0 SEEN /hpf (0-5)
[2019-09-13 14:49] LABS: Color, Urine Yellow (Yellow); Glucose, Dipstick Normal (Normal); Ketone-Dipstick Negative (Negative); Leukocyte Esterase-Dipstick Negative /ul (Negative); Nitrite-Dipstick Negative (Negative); Occult Blood-Urine 10 /ul (Negative); Protein-Dipstick Negative (Negative); Specific Gravity, Urine 1.015 (1.002-1.030); Urine Bilirubin Dipstick Negative (Negative); Urine Clarity Clear (Clear); Urine Urobilinogen Normal (Normal)
[2019-09-13 14:56] LABS: Bacteria RARE /hpf (None Seen); Red Blood Cells-Urine 0-5 SEEN /hpf (0-5); Squamous Epithelial Cells - UA 0-5 SEEN /hpf (5-10)
== END ==
PROVIDERS: Family Provider Family Medicine; PCP Family Medicine; Referring Provider Physician Assistant; Visit Provider Physician Assistant
DX: N30.01 Acute cystitis with hematuria (principal)
CPT/HCPCS: 81001; 87086

== ENCOUNTER → 2019-09-19 13:20 | Outpatient (CLI) | payer MEDICARE, SELFPAY ==
[2019-04-17 13:44] VITALS: BMI 26.4
[2019-09-13 09:04] VITALS: BMI 26.4
--- NOTE | 2019-09-19 13:27 | BI_ITS ---
MAMMOGRAPHY - BILATERAL SCREENING 3-D TOMOSYNTHESIS REASON FOR EXAM: Female, 74 years old. BILAT SCREENING - NO FAM HX - NO PREV SURG''S - OPEN HEART SURG [id number] PERTINENT HISTORY: No significant family history. TECHNIQUE: 2-D mammograms and 3-D Tomosynthesis of the breast (s) were performed. CAD was performed. COMPARISON: September 16, 2018. FINDINGS: The breast composition is almost entirely fat. Scattered benign calcifications are seen. No dense spiculated masses or suspicious microcalcifications are identified. No architectural distortion is identified. There is no skin thickening or retraction. There has been no significant change since the prior study. BI/SCREEN MAMM (CAD) W/ALVARO BILAT IMPRESSION: No mammographic signs of malignancy. Routine yearly mammograms recommended. ASSESSMENT CATEGORY: BIRADS Category 2: Benign. A letter regarding these results will be sent to the patient by the facility within 30 days. FOLLOW UP RECOMMENDATION: Yearly follow up mammogram recommended. (A) Approximately 10% of breast cancers are not detected by mammography. A normal mammogram should not delay biopsy of a clinically suspicious abnormality. Electronically Signed: Trenton Randolph MD at 16:04 EST , Service support ,
== END ==
PROVIDERS: Family Provider Family Medicine; PCP Family Medicine; Referring Provider Family Medicine; Visit Provider Family Medicine
DX: Z12.31 Encounter for screening mammogram for malignant neoplasm of breast (principal)
CPT/HCPCS: 77063; 77067

== ENCOUNTER → 2020-07-21 13:27 | Outpatient (CLI) | payer MEDICARE, SELFPAY ==
[2020-04-22 10:18] VITALS: BMI 25.7
[2020-07-21 15:35] LABS: Absolute Neutrophil Count 3.6 X10^3/uL (2.0-7.7); Basophil# 0.03 X10^3/uL; Basophil% 0.5 % (0-1); Hematocrit 39.5 % (37-47); Hemoglobin 12.8 g/dL (12.0-15.0); Mean Corp Hgb Conc 32.4 g/dL (32-36); Mean Corpuscular Hgb 29.8 pg (27.0-32.0); Mean Corpuscular Volume 92.1 fL (81-99); Mean Platelet Vol. 11.4 fl (6.2-12.0); Monocyte# 0.42 X10^3/uL; Monocyte% 6.4 % (0-10); NRBC Flagged by Analyzer 0 % (0-5); Neutrophil # 3.63 X10^3/uL (2.7-7.7); Neutrophil % 55.1 % (47-70); Platelet Count 212 K/mm3 (150-450); RBC Distribution Width CV 12.8 % (11.6-14.6); RBC Distribution Width SD 43.2 fl (35.1-43.9); Red Blood Count 4.29 M/mm3 (4.2-5.4); White Blood Count 6.6 K/mm3 (4.4-11.0)
[2020-07-21 16:08] LABS: AST(SGOT) 24 U/L (15-37); Alanine Aminotransfer ALT/SGPT 20 U/L (13-56); Albumin, Serum 3.7 g/dL (3.2-5.0); Alkaline Phosphatase 54 U/L (45-117); Anion Gap 6 (5-15); BUN 22 mg/dL (7-18); BUN/Creat Ratio 26.1 RATIO (10-20); Calcium,Total 8.7 mg/dL (8.5-10.1); Chloride 108 mmol/L (98-107); Creatinine, Serum 0.84 mg/dL (0.55-1.02); EST Glomerular Filtration Rate 70 mL/min (>60); Est Glom Filt Rate - Afr Amer 85 mL/min (>60); Globulin 3.7 g/dL (2.2-4.2); Glucose 81 mg/dL (74-106); Protein, Total 7.4 g/dL (6.4-8.2); Sodium Level 142 mmol/L (136-145); Thyroid Stim Hormone (TSH) 1.98 uIU/mL (0.358-3.74)
[2020-07-21 18:49] LABS: Vitamin D,25 Hydroxy 52.5 ng/mL
== END ==
PROVIDERS: PCP Family Medicine; Visit Provider Family Medicine
DX: E78.5 Hyperlipidemia, unspecified (principal); R73.01 Impaired fasting glucose; E55.9 Vitamin D deficiency, unspecified; I10 Essential (primary) hypertension
CPT/HCPCS: 36415; 80053; 82306; 84443; 85025

== ENCOUNTER → 2020-09-29 13:32 | Outpatient (CLI) | payer MEDICARE, SELFPAY ==
[2020-04-22 10:18] VITALS: BMI 25.7
--- NOTE | 2020-09-29 13:35 | BI_ITS ---
MAMMOGRAPHY - BILATERAL SCREENING REASON FOR EXAM: Female, 75 years old. Routine annual screening examination. PERTINENT HISTORY: Non-contributory. TECHNIQUE: Digital bilateral breast alvaro (3D mammographic acquisition) in the CC and MLO projections. 2-D mediolateral oblique (MLO) and craniocaudad (CC) views of both breasts were obtained. CAD: Full Field Digital Mammography with Computer Added Detection was performed. COMPARISON: Comparison is made with prior study dated 09/19/2019 and 09/16/2018. FINDINGS: Breast Composition: The breasts are almost entirely fatty. There are no dominant masses or suspicious calcifications. Stable 5 mm well-defined nodule in the upper outer aspect of the right breast No other significant abnormalities are identified. There has been no significant change since the prior study. BI/SCRN MAMM (CAD)W/ALVARO BILAT IMPRESSION: Stable bilateral screening mammogram. Yearly follow-up mammogram recommended. (A) ASSESSMENT CATEGORY: BIRADS Category 2: Benign. A letter regarding these results will be sent to the patient by the facility within 30 days. Approximately 10% of breast cancers are not detected by mammography. A normal mammogram should not delay biopsy of a clinically suspicious abnormality. [id number] Electronically Signed: Donovan Roche, at 14:41 EST , Service support ,
== END ==
PROVIDERS: PCP Family Medicine; Referring Provider Family Medicine; Visit Provider Family Medicine
DX: Z12.31 Encounter for screening mammogram for malignant neoplasm of breast (principal)
CPT/HCPCS: 77063; 77067

== ENCOUNTER 2020-10-31 07:24 | Emergency (ER) | payer MEDICARE, SELFPAY ==
[2020-04-22 10:18] VITALS: BMI 25.7
[2020-10-31 07:25] VITALS: BP 154/60; PULSE 58; RESP 16; TEMP 36.4; BMI 25.0
--- NOTE | 2020-10-31 07:40 | RAD_ITS ---
STUDY: X-RAY - LEFT KNEE REASON FOR EXAM: Female, 75 years old. sudden onset of knee pain last night, NKI -- painful to bear weight -- pt states her knee was and quot;rebuilt and quot; in 1992 due to arthritis and was and quot;too young for a knee replacement and quot; TECHNIQUE: 4 view(s) of the knee. COMPARISON: None. FINDINGS: Normal visualized distal femur. Normal visualized proximal tibia and fibula. Normal proximal tibiofibular articulation. There is severe degenerative arthrosis of the medial femorotibial compartment with severe joint space narrowing. There is severe degenerative arthrosis of the lateral femorotibial compartment with severe joint space narrowing. There is mild degenerative arthrosis of the patellofemoral articulation. The soft tissue structures are unremarkable. RAD/Knee 4 or More Views IMPRESSION: 1. No acute fracture or dislocation. 2. Severe arthrosis. Electronically Signed: Grant Pollock MD at 8:26 EST Tel , Service support ,
[2020-10-31] MEDS: fentaNYL 100 MCG/2 ML Ampul 50 MCG IM (07:45)
[2020-10-31] MEDS: Ondansetron ODT 4 MG Tablet PO (07:46)
--- NOTE | 2020-10-31 08:28 | ED.DCSUM_ITS ---
- ER Visit Summary Date of Service: 10/31/20 Chief Complaint: Left knee pain History of Present Illness: The patient is a [address] Weems and Dr. Rolan Temple. Who reports that yesterday she was going getting off of a high stool and had abrupt onset of left knee pain. She did not fall. She did not twist her knee awkwardly. However, she states that since that time she has a sharp pain is 8 out of 10 with walking 5 out of 10 at rest. She is taken Tylenol without relief. She denies any other injuries or complaints. Review of systems: General: No fever, chills, cold sweats. Cardiovascular: No chest pain, palpitations. Respiratory: No cough, shortness of breath, dyspnea on exertion. Gastrointestinal: No abdominal pain, nausea, vomiting, diarrhea, melena, or hematochezia. Genitourinary: No dysuria, frequency, hematuria. Skin: No rash. Neuro: No headache, numbness, weakness. Physical Examination: Vitals: Stable. Afebrile. General: Well-nourished and well-developed. Head: Normocephalic atraumatic. Neck: Supple, no lymphadenopathy. No JVD. Nontender. Cardiovascular: Regular rate and rhythm. No murmurs. Respiratory: No respiratory distress. Clear to auscultation bilaterally. Abdominal: Soft, nontender, nondistended, normal bowel sounds. No guarding, rebound, or peritoneal signs. Back: Nontender. Extremities: Left knee shows moderate diffuse tenderness palpation both anteriorly and posteriorly. She has pain, but no ligamentous instability with anterior/posterior drawer and medial/lateral stress. She has decreased range of motion secondary to pain. She has no pain with short arc movements. There is no overlying erythema or warmth to suggest a septic joint. She has 2+ dorsalis pedis pulse and normal sensation to light touch. Skin: Normal color, no rash. Neurologic: Alert and oriented ?3. Cranial nerves II through XII are intact. Normal strength and sensation. Psych: Normal affect. Test Results: Clinical Impression(s) from Imaging Studies Knee X-Ray 10/31/20 07:40 IMPRESSION: 1. No acute fracture or dislocation. 2. Severe arthrosis. Electronically Signed: Grant Pollock MD at 8:26 EST Tel , Service support , Emergency Department Course and Treatment: Patient has not eaten this morning. She is given a dose of fentanyl IM and Zofran p.o. She is resting more comfortably. She does not want crutches. She has a walker at home. Treatment Plan: Prolonged discussion the patient that she may have damaged the cartilage in her knee or given the appearance that she may have [id number] and essentially no cartilage left. She will be discharged with Percocet and Zofran. She is instructed to continue her stool softener. Follow-up with Dr. Dwyer in 1 week for another exam. Return to the emergency department for any worsening symptoms. Disposition: To home in improved and stable condition. Impression: 1. Left knee pain, acute. This note was generated with [employer] dictation software. It may contain incorrect words, spelling, and punctuation that were not noted in review of the chart prior to signing ED Disposition - Plan for ED Patient: Instructions: ED Knee Pain of Uncertain Cause Prescriptions: Oxycodone HCl/Acetaminophen [Percocet 5/325] 1 tablet PO Q6H PRN PRN 5 Days #20 tablet PRN Reason: Pain Score 6-10 Ondansetron [Zofran Odt] 4 mg PO Q8H PRN PRN #10 tablet PRN Reason: Nausea Referrals: Bob Dwyer MD [STAFF PHYSICIAN] - 1 Week
== END 2020-10-31 08:40 | disposition home or self-care (01) ==
LOC: ED 07:53
PROVIDERS: Emergency Provider Emergency Medicine; PCP Family Medicine
DX: M25.562 Pain in left knee (principal)
CPT/HCPCS: 73564; 96372; 99283

== ENCOUNTER 2021-01-15 19:20 | Emergency (ER) | payer MEDICARE, SELFPAY ==
[2021-01-15 19:20] VITALS: BP 166/103; PULSE 89; TEMP 36.3; O2SAT 98; BMI 23.9
--- NOTE | 2021-01-15 20:18 | ED.VIS.LOWEX ---
HPI History of Present Illness Chief Complaint: Lower Extremity Injury Informant: patient Onset/Context/Timing Onset: Today Context: Gradual Onset Timing: Continuous Quality of Pain: - (sore) Location: left thigh Current Severity: Mild Maximum Severity: Mild Worsened by: palpation, compression sock Relieved by: leaving alone Associated Symptoms Associated Symptoms: Positive for - (bruising); Negative for Parasthesia, Weakness and Loss of Funtion Narrative Narrative: Patient had a left knee replacement done with robotic assistance by Dr. Dwyer 5 days ago. She states she has had very little pain that has been easily managed by the prescription analgesics she has been taking. She has also been using the prescribed compression sock, which goes up to her proximal thigh but it is so tight that it keeps slipping down to just above her knee; today she noticed significant bruising in the medial thigh that progressed up to her groin, pulling the sock up made it worse, and since it is Sunday she decided to come and have it evaluated. She denies any fevers, drainage from the knee except for the scant amount of blood occasionally there, no chest pain or shortness of breath, or palpitations or other systemic symptoms. She is able to walk and she is walking better than she expected to for only being 5 days out. [facility] Medical History (Updated 01/15/21 @ 20:[address] Arthur Christie MD) Atherosclerotic heart disease of [place] coronary artery without angina pectoris Diabetes mellitus, type II Encounter for long-term (current) use of other medications Essential (primary) hypertension Hyperlipidemia Nonrheumatic aortic (valve) stenosis Paroxysmal ventricular tachycardia Home Medications [facility] 1 tab PO DAILY 09/24/13 [History Last Taken Unknown] aspirin 81 mg tablet,delayed release 81 mg PO QDAY 08/28/17 [History Last Taken Unknown] cholecalciferol (vitamin D3) 10 mcg (400 unit) capsule 5,000 unit PO DAILY cap 09/19/18 [History Last Taken Unknown] clopidogrel 75 mg tablet 75 mg PO DAILY #90 tab 04/22/20 [Rx Last Taken Unknown] metoprolol succinate 25 mg tablet,extended release 24 hr 25 mg PO BID #180 tab 04/22/20 [Rx Last Taken Unknown] pravastatin 40 mg tablet 40 mg PO QHS #90 tab 04/22/20 [Rx Last Taken Unknown] pantoprazole 40 mg tablet,delayed release 40 mg PO DAILY #90 tab 04/23/20 [Rx Last Taken Unknown] lisinopril 10 mg PO BID 01/15/21 [History Last Taken Unknown] Allergy/AdvReac Type Severity Reaction Status Date / Time codeine Allergy Unknown Verified 01/15/21 19:34 Sulfa (Sulfonamide Allergy Unknown Verified 01/15/21 19:34 Antibiotics) atorvastatin [From Lipitor] AdvReac Severe Myalgias Verified 01/15/21 19:34 Family History Father CAD (coronary artery disease) Mother Atrial fibrillation Cancer Sister Atrial fibrillation Hypertension Surgical History H/O coronary artery bypass surgery (01/14/10) History of appendectomy History of cholecystectomy History of coronary artery stent placement (01/17/10) History of left heart catheterization (07/05/10) History of left knee surgery Social History Smoking Status: Unknown if ever smoked alcohol intake: never ROS ROS ED Constitutional Constitutional ED: Denies chills or fever(s) Eyes Eyes: Denies change in vision or diplopia ENT ENT ED: Denies rhinorrhea or sore throat Cardiovascular Cardiovascular: Denies chest pain or palpitations Respiratory/Chest Respiratory/Chest: Denies cough or dyspnea Gastrointestinal Gastrointestinal: Denies abdominal pain, diarrhea, nausea or vomiting Genitourinary Genitourinary ED: Denies dysuria or hematuria Musculoskeletal Musculoskeletal: Denies back pain or neck pain Integumentary Denies abscess Neurologic Neurologic: Denies headache(s), paresthesias or weakness Psychiatric Psychiatric: Denies anxiety or suicidal thoughts EXAM Physical Exam Const Vital Signs: 01/15/21 19:20 Temperature 97.3 F L Temperature Source Temporal Pulse Rate 89 Blood Pressure 166/103 H Blood Pressure Mean 124 Pulse Ox 98 Oxygen Delivery Method Room Air Positive well nourished and well developed General Appearance ED: well developed and NAD HEENT Reports moist mucous membranes normocephalic and atraumatic Eyes PERRL and EOMs intact bilaterally Neck full ROM and supple Resp normal respiratory effort Back/Spine normal to inspection General Back: other FROM Extremity Extremity Narrative: Some swelling to the left lower extremity and around the knee, expected for this postoperative state; mildly tender ecchymosis in the medial left thigh up to the groin, no palpable cords. No signs of infection or dehiscence of the midline anterior left knee incision, there is a scant amount of blood present without any other discharge. Excellent range of motion. General Extremety ED: Yes edema; Negative for pulses abnormal or tenderness General Extremity: edema; Negative for pulses abnormal Neuro oriented x3, CN's II-XII intact bilaterally and no sensory deficits noted Sensorium / Orientation: awake and alert Motor Exam: strength 5/5 throughout Psych mental status grossly normal and thought process normal Skin no rashes or lesions noted and no wounds Rashes: no rashes MDM MDM MDM Narrative Medical decision making narrative: Patient was reassured. This looks like ecchymosis that is likely related to the fact that she has a tight compression sock on, is on Xarelto prophylactic for 2 weeks, in addition to 2 other antiplatelet medications. I advised her I thought it was reasonable to keep the soft down away from the ecchymotic areas until she follows up with her surgeon after the weekend, who was not insulation foreman or available this weekend. She states she wanted to make sure was not a DVT, I reassured her this is not indicative of a DVT. Discharge Plan Triage Chief Complaint: Lower Extremity Injury ED Provider: Arthur Christie Dx/Rx/DC Orders Clinical Impression: Traumatic ecchymosis of multiple sites of left lower extremity, Encounter for post surgical wound check Instructions: ED Contusion, Lower Extremity Prescriptions: No Action aspirin [Adult Aspirin Regimen] 81 mg tablet,delayed release (DR/EC) 81 mg PO QDAY RF: 0 cholecalciferol (vitamin D3) 400 unit capsule 5,000 unit PO DAILY RF: 0 clopidogrel 75 mg tablet 75 mg PO DAILY Qty: 90 RF: 4 pravastatin [Pravachol] 40 mg tablet 40 mg PO QHS Qty: 90 RF: 4 metoprolol succinate 25 mg tablet extended release 24 hr 25 mg PO BID Qty: 180 RF: 4 [facility] 1 tab PO DAILY RF: 0 lisinopril 5 mg tablet 10 mg PO BID RF: 0 pantoprazole [Protonix] 40 mg tablet,delayed release (DR/EC) 40 mg PO DAILY Qty: 90 RF: 3 Primary Care Provider: Rolan Temple Referrals: Rolan Temple MD [Primary Care Provider] - Bob Dwyer MD [STAFF PHYSICIAN] - 3-5 Days Disposition Disposition: Home, self care
[2021-01-15 20:32] VITALS: PULSE 89; RESP 18; O2SAT 97
== END 2021-01-15 20:33 | disposition home or self-care (01) ==
PROVIDERS: Emergency Provider Emergency Medicine; PCP Family Medicine
DX: S80.12XA Contusion of left lower leg, initial encounter (principal); I25.10 Atherosclerotic heart disease of native coronary artery without angina pectoris; E78.5 Hyperlipidemia, unspecified; I10 Essential (primary) hypertension; Z79.82 Long term (current) use of aspirin; Z79.899 Other long term (current) drug therapy; Y93.01 Activity, walking, marching and hiking; X58.XXXA Exposure to other specified factors, initial encounter
CPT/HCPCS: 99282

== ENCOUNTER 2021-10-07 10:07 | Outpatient (CLI) | payer MEDICARE, SELFPAY ==
[2021-10-07 10:18] LABS: Mucous, Urine 0 SEEN /hpf (<or=2+)
[2021-10-07 10:22] LABS: Color, Urine Yellow (Yellow); Glucose, Dipstick Normal (Normal); Ketone-Dipstick Negative (Negative); Leukocyte Esterase-Dipstick 500 /ul (Negative); Nitrite-Dipstick Positive (Negative); Occult Blood-Urine 10 /ul (Negative); Protein-Dipstick 15 mg/dl (Negative); Urine Bilirubin Dipstick Negative (Negative); Urine Clarity Clear (Clear); Urine Urobilinogen Normal (Normal)
[2021-10-07 10:30] LABS: Bacteria 2+ /hpf (None Seen); Red Blood Cells-Urine 0-5 SEEN /hpf (0-5); Squamous Epithelial Cells - UA 0-5 SEEN /hpf (5-10); White Blood Cells 50-100 SEEN /hpf (0-5)
== END 2021-10-07 23:59 | disposition short-term general hospital (02) ==
LOC: LABSPEC 10:09
PROVIDERS: PCP Family Medicine; Referring Provider Physician Assistant Surgical; Visit Provider Physician Assistant Surgical
DX: N39.0 Urinary tract infection, site not specified (principal)
CPT/HCPCS: 81001; 87086; 87088; 87186

== ENCOUNTER 2021-12-07 09:56 | Outpatient (CLI) | payer MEDICARE, SELFPAY ==
--- NOTE | 2021-12-07 09:59 | BI_ITS ---
MAMMOGRAPHY - BILATERAL SCREENING REASON FOR EXAM: Female, 76 years old. Routine annual screening examination. PERTINENT HISTORY: Non-contributory. TECHNIQUE: Digital bilateral breast alvaro (3D mammographic acquisition) in the CC and MLO projections. 2-D mediolateral oblique (MLO) and craniocaudad (CC) views of both breasts were obtained. CAD: Full Field Digital Mammography with Computer Added Detection was performed. COMPARISON: Comparison is made with prior study dated 09/29/2020 and 09/19/2019. FINDINGS: Breast Composition: The breasts are almost entirely fatty. There are no dominant masses or suspicious calcifications. Stable 5 mm well-defined nodule in the upper-outer aspect of the right breast and this most likely represents a small lymph node. No other significant abnormalities are identified. There has been no significant change since the prior study. BI/SCRN MAMM (CAD)W/ALVARO BILAT IMPRESSION: Stable bilateral screening mammogram. Yearly follow-up mammogram recommended. (A) ASSESSMENT CATEGORY: BIRADS Category 2: Benign. A letter regarding these results will be sent to the patient by the facility within 30 days. Approximately 10% of breast cancers are not detected by mammography. A normal mammogram should not delay biopsy of a clinically suspicious abnormality. [id number] Electronically Signed: Donovan Roche MD at 11:00 EDT ,
== END 2021-12-07 23:59 | disposition home or self-care (01) ==
LOC: OPBI 09:57
PROVIDERS: PCP Family Medicine; Visit Provider Family Medicine
DX: Z12.31 Encounter for screening mammogram for malignant neoplasm of breast (principal)
CPT/HCPCS: 77063; 77067

== ENCOUNTER → 2022-08-04 | Outpatient (CLI) | payer MEDICARE, SELFPAY ==
[2022-08-04 10:06] LABS: Mucous, Urine 0 SEEN /hpf (<or=2+)
[2022-08-04 10:11] LABS: Color, Urine Yellow (Yellow); Glucose, Dipstick Normal (Normal); Ketone-Dipstick Negative (Negative); Leukocyte Esterase-Dipstick 500 /ul (Negative); Nitrite-Dipstick Positive (Negative); Occult Blood-Urine 25 /ul (Negative); Protein-Dipstick Negative (Negative); Urine Bilirubin Dipstick Negative (Negative); Urine Clarity Clear (Clear); Urine Urobilinogen Normal (Normal)
[2022-08-04 10:19] LABS: Bacteria 2+ /hpf (None Seen); Red Blood Cells-Urine 0-5 SEEN /hpf (0-5); Squamous Epithelial Cells - UA 0-5 SEEN /hpf (5-10); White Blood Cells 25-50 SEEN /hpf (0-5)
== END | disposition home or self-care (01) ==
LOC: LABSPEC 09:58
PROVIDERS: PCP Family Medicine; Visit Provider Physician Assistant
DX: N39.0 Urinary tract infection, site not specified (principal)
CPT/HCPCS: 81001; 87086; 87088; 87186

== ENCOUNTER → 2022-08-14 | Outpatient (CLI) | payer MEDICARE, SELFPAY ==
[2022-08-14 17:52] LABS: Absolute Lymphocyte Count 2.53 X10^3/uL (0.83-4.51); Absolute Neutrophil Count 4.3 X10^3/uL (2.0-7.7); Basophil# 0.05 X10^3/uL; Basophil% 0.7 % (0-1); Eosinophil# 0.14 X10^3/uL; Eosinophils% 1.9 % (0-5); Hematocrit 41.7 % (37-47); Hemoglobin 13.6 g/dL (12.0-15.0); Lymphocyte # 2.53 X10^3/ul (0.83-4.51); Lymphocyte % 33.6 % (19-41); Mean Corp Hgb Conc 32.6 g/dL (32-36); Mean Corpuscular Hgb 30.2 pg (27.0-32.0); Mean Corpuscular Volume 92.7 fL (81-99); Mean Platelet Vol. 11.1 fl (6.2-12.0); Monocyte# 0.47 X10^3/uL; Monocyte% 6.3 % (0-10); NRBC Flagged by Analyzer 0 % (0-5); Neutrophil # 4.32 X10^3/uL (2.7-7.7); Neutrophil % 57.4 % (47-70); Platelet Count 246 K/mm3 (150-450); RBC Distribution Width CV 13.4 % (11.6-14.6); RBC Distribution Width SD 45.3 fl (35.1-43.9); White Blood Count 7.5 K/mm3 (4.4-11.0)
[2022-08-14 17:59] LABS: Vitamin D,25 Hydroxy 53.9 ng/mL
[2022-08-14 18:09] LABS: Anion Gap 4 (5-15); BUN 26 mg/dL (7-18); Calcium,Total 9.3 mg/dL (8.5-10.1); Chloride 105 mmol/L (98-107); Creatinine, Serum 0.84 mg/dL (0.55-1.02); EST Glomerular Filtration Rate 70 mL/min (>60); Est Glom Filt Rate - Afr Amer 85 mL/min (>60); Glucose 85 mg/dL (74-106); Potassium 4.1 mmol/L (3.5-5.1); Sodium Level 140 mmol/L (136-145); Thyroid Stim Hormone (TSH) 2.66 uIU/mL (0.358-3.74)
== END | disposition home or self-care (01) ==
LOC: BFHLAB 15:17
PROVIDERS: PCP Family Medicine; Visit Provider Family Medicine
DX: I10 Essential (primary) hypertension (principal); E55.9 Vitamin D deficiency, unspecified; E78.5 Hyperlipidemia, unspecified
CPT/HCPCS: 36415; 80048; 82306; 84443; 85025

== ENCOUNTER → 2022-09-06 | Outpatient (CLI) | payer MEDICARE, SELFPAY ==
--- NOTE | 2022-09-06 08:08 | BD_ITS ---
STUDY: DUAL ENERGY X-RAY ABSORPTIOMETRY / DXA REASON FOR EXAM: Female, 77 years old. N95.9 TECHNIQUE: Bone Mineral Density (BMD) measurements of lumbar spine and bilateral hips were obtained. COMPARISON: Comparison is made with prior study dated 03/23/2016. FINDINGS: Lumbar Spine (L1-L4): g/cm2 (0.950) / T-score (-0.9) / Z-score (1.6) Findings are suggestive of normal bone density with a low fracture risk. Left Femur Total: g/cm2 (0.814) / T-score (-1.1) / Z-score (0.8) Left Femoral Neck: g/cm2 (0.687) / T-score (-1.5) / Z-score (0.7) Right Femur Total: g/cm2 (0.782) / T-score (-1.3) / Z-score (0.5) Right Femoral Neck: g/cm2 (0.747) / T-score (-0.9) / Z-score (1.2) The T-Scores on the most recent prior examination were: Lumbar Spine (L1-L4): There has been worsening of bone density since the previous examination. Left Femur Total: which represents a worsening of 14.6%. Right Femur Total: which represents a worsening of 11.5%. BD/Dexa Bone Density Study IMPRESSION: The patient is considered osteopenic as outlined below according to World Jose Organization (WHO) criteria with a low fracture risk. There has been worsening of bone density since the previous examination. Reference Information: The T-score is the number of standard deviations above or below the standard which is normal for young adults at their peak bone mineral density. The World Health Organization (WHO) interprets the T-scores as follows: Above -1 Normal bone density Between -1 and -2.5 Osteopenia Equal to / or below -2.5 Osteoporosis As a practical clinical guideline, osteopenia may be graded as follows: Mild -1 through -1.5 Moderate -1.6 through -2.0 Severe -2.1 through -2.4 The Z-score is the number of standard deviations above or below age-matched controls. A Z-score of less than -1.5 would be considered abnormal. References: 1. NIH Osteoporosis and Related Bone Diseases www osteo.org 2. International Society for Clinical Densitometry www iscd.org 3. National Osteoporosis Foundation www nof.org Electronically Signed: Donovan Roche MD at 14:31 EST ,
== END | disposition home or self-care (01) ==
LOC: OPBD 07:57
PROVIDERS: PCP Family Medicine; Visit Provider Family Medicine
DX: N95.9 Unspecified menopausal and perimenopausal disorder (principal)
CPT/HCPCS: 77080

== ENCOUNTER → 2022-10-03 | Outpatient (CLI) | payer MEDICARE, SELFPAY ==
--- NOTE | 2022-10-03 11:55 | RAD_ITS ---
EXAM: XR LUMBOSACRAL SPINE, 4 OR 5 VIEWS CLINICAL INDICATION: BACK PAIN TECHNIQUE: Frontal, lateral and bilateral oblique views of the lumbar spine. This report was created using [employer] report [employer] technology. COMPARISON: None. FINDINGS: VERTEBRAE: Unremarkable. Preserved vertebral body height. No fracture. No spondylolisthesis. Preservation of the normal lumbar lordosis. No significant facet arthropathy. DISC SPACES: There are mild degenerative changes with narrowing of the disc spaces at L1-2 and L2-3. SOFT TISSUES: There are bilateral tubal ligation clips. GASTROINTESTINAL TRACT: Unremarkable as visualized. Included bowel gas pattern is non-obstructive. TUBES, LINES AND DEVICES: There is a battery pack overlying the right iliac wing with lead extending over the right sacrum. RAD/L/S Spine Min 4 Views IMPRESSION: Mild degenerative changes with disc space narrowing. There are no acute osseous abnormalities. Electronically Signed: Bari Woodard MD at 17:57 EST ,
== END | disposition home or self-care (01) ==
LOC: MTRAD 11:51
PROVIDERS: PCP Family Medicine; Referring Provider Family Medicine; Visit Provider Family Medicine
DX: M54.17 Radiculopathy, lumbosacral region (principal)
CPT/HCPCS: 72110

== ENCOUNTER → 2022-12-03 | Outpatient (CLI) | payer MEDICARE, SELFPAY ==
[2022-12-03 14:27] LABS: Bacteria 0 SEEN /hpf (None Seen); Mucous, Urine 0 SEEN /hpf (<or=2+); White Blood Cells 0 SEEN /hpf (0-5)
[2022-12-03 15:17] LABS: Color, Urine Yellow (Yellow); Glucose, Dipstick Normal (Normal); Ketone-Dipstick Negative (Negative); Leukocyte Esterase-Dipstick Negative /ul (Negative); Nitrite-Dipstick Negative (Negative); Occult Blood-Urine 10 /ul (Negative); Protein-Dipstick 30 mg/dl (Negative); Urine Bilirubin Dipstick Negative (Negative); Urine Clarity Sl. Cloudy (Clear); Urine Urobilinogen Normal (Normal)
[2022-12-03 15:34] LABS: Red Blood Cells-Urine 0-5 SEEN /hpf (0-5); Squamous Epithelial Cells - UA 0-5 SEEN /hpf (5-10)
== END | disposition home or self-care (01) ==
LOC: LABSPEC 14:23
PROVIDERS: Visit Provider Nurse Practitioner Family
DX: R35.0 Frequency of micturition (principal); N39.0 Urinary tract infection, site not specified
CPT/HCPCS: 81001; 87086

== ENCOUNTER 2023-03-01 15:02 | Emergency (ER) | payer MEDICARE, SELFPAY ==
[2023-03-01 15:05] VITALS: BP 192/62; PULSE 64; RESP 18; TEMP 36.6; O2SAT 100
--- NOTE | 2023-03-01 15:57 | RAD_ITS ---
STUDY: X-RAY - PELVIS REASON FOR EXAM: Female, 77 years old. Pain TECHNIQUE: One view of the pelvis was obtained. COMPARISON: None. FINDINGS: There is a non-specific bowel gas pattern. Normal visualized soft tissue structures. There is a right-sided sacral stimulator. Normal bilateral iliac wings, sacroiliac joints and visualized sacrum. Normal visualized bilateral superior and inferior pubic rami. Normal pubic symphysis. Normal ischial tuberosities. Normal visualized right femoral head. Normal right acetabulum. Normal right hip joint. Normal visualized left femoral head. Normal left acetabulum. Normal left hip joint. RAD/Pelvis 1 or 2 Views IMPRESSION: No definite acute or significant abnormality seen. Electronically Signed: Mor Rhodes MD at 17:00 EDT ,
--- NOTE | 2023-03-01 16:00 | EDS_ITS ---
HPI History of Present Illness Chief Complaint: Lower Extremity Injury Informant: patient and spouse/S.O. Narrative Narrative: Patient presents with right hip area pain. Patient states she has pain in her right posterior buttock radiating around the side of her hip and then down the side of her right thigh to shortly above the knee. If she is laying down its not that bad. If she is standing or sitting it seems to be worse. She has no numbness tingling or weakness. The radiation of pain does not go past the knee. She has no abdominal pain. She has no fall or impact trauma but she did do a lot of work in the garden including fertilizing a lot of plants. She is wondering if this may have aggravated it. She has a history of some back pain problems but her back really is not hurting her now. She has had no fevers chills or sweats. No history of cancers. No recent infections. [facility] Medical History Atherosclerotic heart disease of [place] coronary artery without angina pectoris Diabetes mellitus, type II Essential (primary) hypertension Hyperlipidemia Nonrheumatic aortic (valve) stenosis Urinary tract infection Home Medications [facility] 1 tab PO DAILY 09/24/13 [History Last Taken Unknown] aspirin 81 mg tablet,delayed release (Adult Aspirin Regimen) 81 mg PO QDAY 08/28/17 [History Last Taken Unknown] cholecalciferol (vitamin D3) 10 mcg (400 unit) capsule 5,000 unit PO DAILY 09/19/18 [History Last Taken Unknown] clopidogrel 75 mg tablet 75 mg PO DAILY #90 tabs 03/16/21 [Rx Last Taken Unknown] metoprolol succinate 25 mg tablet,extended release 24 hr 25 mg PO BID #180 tabs 03/16/21 [Rx Last Taken Unknown] pantoprazole 40 mg tablet,delayed release (Protonix) 40 mg PO DAILY #90 tabs 03/16/21 [Rx Last Taken Unknown] pravastatin 40 mg tablet 40 mg PO QHS #90 tabs 03/16/21 [Rx Last Taken Unknown] lisinopril 5 mg tablet 10 mg PO BID 05/03/21 [History Last Taken Unknown] tramadol 50 mg tablet 50 mg PO Q6H PRN pain #10 tabs 03/01/23 [Rx Last Taken Unknown] Allergy/AdvReac Type Severity Reaction Status Date / Time codeine Allergy Unknown Verified 09/29/22 07:14 Sulfa (Sulfonamide Allergy Unknown Verified 09/29/22 07:14 Antibiotics) Family History Father CAD (coronary artery disease) Mother Atrial fibrillation Cancer Sister Atrial fibrillation Hypertension Surgical History H/O coronary artery bypass surgery (01/14/10) History of appendectomy History of cholecystectomy History of coronary artery stent placement (01/17/10) History of left heart catheterization (07/05/10) History of left knee surgery Social History Smoking Status: Never smoker alcohol intake: never ROS ROS ED ROS Narrative A complete review of systems was performed and is negative except as documented in the history of present illness. Some specific details below. Constitutional: No recent fevers or chills. No rigors. Patient has not generally felt ill. EYE: No discharge, visual complaints, or pain. ENT: No sinus pressure or pain. No recent drainage. CV: No chest pain, pressure or aching. No palpitations or irregular beats. Patient has not been presyncopal or syncopal. Respiratory: No trouble breathing. No cough. No wheezing. No sputum production. No pain with breathing. GI: No abdominal pain. No nausea vomiting diarrhea. No blood in stool. No loss of bowel control. No history of AAA. : No frequency dysuria or hematuria. No incontinence or urinary retention. Musculoskeletal: No recent impact trauma but also see history of present illness. No swelling. Skin: No rash. No diaphoresis. No vesicles. Neuro: No weakness or numbness. No pain radiating down leg past the knee. No weakness of ambulation. No sensory changes in the extremities. Please see history of present illness also. Endocrine: No polyuria or polydipsia. EXAM Physical Exam Narrative Exam Narrative: CONSTITUTIONAL: Patient is nontoxic in appearance. The patient looks comfortable. Work of breathing looks normal. She looks comfortable laying in bed. HEENT: No notable trauma. Mucous membranes moist. No sinus tenderness. No sign of dental infection. EYES: No conjunctival injection. No pallor. NECK: No meningismus. No JVD. CARDIOVASCULAR: Regular rate. Regular rhythm. No notable murmur. No JVD. RESPIRATORY: No respiratory distress. Breathing is unlabored. No wheezes. GASTROINTESTINAL: Not distended. Bowel sounds are normal. No tenderness. No guarding. No rebound. No palpable mass. No bruit. GENITOURINARY: No tenderness over the bladder. No CVA tenderness. MUSCULOSKELETAL: Atraumatic. No peripheral edema. No cord. No tenderness along the deep venous system. No asymmetry. Distal pulses are intact. She has had prior right knee replacement. But there is no swelling erythema or notable tenderness. She does have some mild tenderness over the sciatic notch in the ba ck. No inguinal tenderness. No real pain with rotation of the hip. No shortening or rotation. NEUROLOGICAL: Patient is alert and oriented. No focal deficit noted. There is no change in sensation. No change in strength. SKIN: No noted rashes. No diaphoresis. No vesicles noted. No notable pallor. PSYCHIATRIC: Patient is calm. Mood is appropriate. Const Vital Signs: 03/01/23 15:05 Temperature 97.8 F Temperature Source Temporal Pulse Rate 64 Respiratory Rate 18 Blood Pressure 192/62 H Blood Pressure Mean 105 Pulse Ox 100 Oxygen Delivery Method Room Air MDM MDM MDM Narrative Medical decision making narrative: My independent interpretation of the patient's right side pelvis hip x-ray and right femur x-rays show arthritic changes in her total knee replacement but no sign of obvious loosening fracture or acute finding. Final reading is similar. Patient really has not tried much for the pain. I explained she can take some Tylenol. She states Naprosyn Motrin do not help and I recommend with her heart disease and age she should avoid those anyway. I will write for a few tramadol. She did report a allergy to codeine but it sounds like it was GI upset only. We discussed reasons to return and that she should follow-up. Radiography Diagnostic Testing: Clinical Impression(s) from Imaging Studies Pelvis X-Ray 03/01/23 15:57 IMPRESSION: No definite acute or significant abnormality seen. Electronically Signed: Mor Rhodes MD at 17:00 EDT , Femur X-Ray 03/01/23 16:30 IMPRESSION: No definite acute or significant abnormality seen. Electronically Signed: Mor Rhodes MD at 16:59 EDT , Discharge Plan Triage Chief Complaint: Lower Extremity Injury ED Provider: Rajesh German Dx/Rx/DC Orders Clinical Impression: Sciatica, right side Instructions: ED Sciatica Prescriptions: New tramadol 50 mg tablet 50 mg PO Q6H PRN (Reason: pain) Qty: 10 0RF No Action aspirin [Adult Aspirin Regimen] 81 mg tablet,delayed release (DR/EC) 81 mg PO QDAY cholecalciferol (vitamin D3) 400 unit capsule 5,000 unit PO DAILY lisinopril 5 mg tablet 10 mg PO BID [facility] 1 tab PO DAILY pravastatin 40 mg tablet 40 mg PO QHS Qty: 90 4RF pantoprazole [Protonix] 40 mg tablet,delayed release (DR/EC) 40 mg PO DAILY Qty: 90 3RF metoprolol succinate 25 mg tablet extended release 24 hr 25 mg PO BID Qty: 180 4RF clopidogrel 75 mg tablet 75 mg PO DAILY Qty: 90 4RF Primary Care Provider: Abelardo Mas Referrals: Abelardo Mas DO [Primary Care Provider] - 3-5 Days if not improving Disposition Disposition: Home, Self Care
[2023-03-01 16:03] VITALS: BMI 26.4
--- NOTE | 2023-03-01 16:30 | RAD_ITS ---
STUDY: X-RAY - RIGHT FEMUR REASON FOR STUDY: Female, 77 years old. Pain TECHNIQUE: 2 view(s) of the femur. COMPARISON: None. FINDINGS: Satisfactory appearance of total knee arthroplasty. Otherwise normal visualized femur. Normal visualized soft tissue structure. There is no demonstrated fracture or destructive process. RAD/Femur Min 2 Views IMPRESSION: No definite acute or significant abnormality seen. Electronically Signed: Mor Rhodes MD at 16:59 EDT ,
== END 2023-03-01 18:07 | disposition home or self-care (01) ==
PROVIDERS: Emergency Provider Emergency Medicine; PCP Family Medicine; Visit Provider Emergency Medicine
DX: M54.31 Sciatica, right side (principal); I25.10 Atherosclerotic heart disease of native coronary artery without angina pectoris; Z95.5 Presence of coronary angioplasty implant and graft; Z95.1 Presence of aortocoronary bypass graft
CPT/HCPCS: 72170; 73552; 99282

== ENCOUNTER 2023-04-12 14:31 | Emergency (ER) | payer MEDICARE, SELFPAY ==
[2023-04-12 14:31] VITALS: BP 157/79; PULSE 62; RESP 18; TEMP 36.6; O2SAT 100; BMI 25.1
[2023-04-12 16:34] LABS: Absolute Lymphocyte Count 1.78 X10^3/uL (0.83-4.51); Basophil# 0.03 X10^3/uL; Basophil% 0.5 % (0-1); Eosinophil# 0.13 X10^3/uL; Eosinophils% 2.1 % (0-5); Hematocrit 41.2 % (37-47); Hemoglobin 13.2 g/dL (12.0-15.0); Lymphocyte # 1.78 X10^3/ul (0.83-4.51); Lymphocyte % 28.4 % (19-41); Mean Corpuscular Hgb 29.7 pg (27.0-32.0); Mean Corpuscular Volume 92.8 fL (81-99); Mean Platelet Vol. 11.3 fl (6.2-12.0); Monocyte# 0.36 X10^3/uL; Monocyte% 5.8 % (0-10); NRBC Flagged by Analyzer 0 % (0-5); Neutrophil # 3.95 X10^3/uL (2.7-7.7); Platelet Count 225 K/mm3 (150-450); RBC Distribution Width CV 13.1 % (11.6-14.6); RBC Distribution Width SD 44.6 fl (35.1-43.9); Red Blood Count 4.44 M/mm3 (4.2-5.4); White Blood Count 6.3 K/mm3 (4.4-11.0)
[2023-04-12 16:52] LABS: AST(SGOT) 20 U/L (15-37); Alanine Aminotransfer ALT/SGPT 17 U/L (13-56); Albumin, Serum 3.7 g/dL (3.2-5.0); Alkaline Phosphatase 56 U/L (45-117); Anion Gap 6 (5-15); BUN 25 mg/dL (7-18); BUN/Creat Ratio 26.7 RATIO (10-20); Calcium,Total 9.4 mg/dL (8.5-10.1); Chloride 106 mmol/L (98-107); Creatinine, Serum 0.94 mg/dL (0.55-1.02); EST Glomerular Filtration Rate 62 mL/min (>60); Est Glom Filt Rate - Afr Amer 75 mL/min (>60); Estimated Creatinine Clearance 42.12 ml/min; Globulin 3.8 g/dL (2.2-4.2); Glucose 119 mg/dL (74-106); Potassium 4.4 mmol/L (3.5-5.1); Protein, Total 7.5 g/dL (6.4-8.2); Sodium Level 141 mmol/L (136-145)
--- NOTE | 2023-04-12 17:03 | EDS_ITS ---
HPI History of Present Illness Chief Complaint: Abd Pain Detail of Chief Complaint: Lower back pain that radiated to the right and pain in the right inguinal a Informant: patient Onset/Context/Timing Onset: Today and Hours Context: Sudden Onset Timing: Continuous Quality: Pain Location: Presently right inguinal area Current Severity: Mild Maximum Severity: Severe Worsened by: Nothing Relieved by: Nothing Associated Symptoms Associated Symptoms: None Narrative Narrative: Patient is a 77-year-old woman with history of interstitial cystitis, renal calculi, inguinal hernia, hypertension, hyperlipidemia, coronary artery disease status post bypass surgery, who presents with right lower back pain that radiated anteriorly and now has pain in the right inguinal area. She has a known hernia. She had no nausea vomiting. No constipation. She is passing gas. She denies urologic symptoms. She denies fever or chills. She denies vomiting or diarrhea. There is no history of trauma. Prior similar symptoms: No Recent Illness/Hospitalization: No PFSH PFS Medical History Atherosclerotic heart disease of [place] coronary artery without angina pectoris Diabetes mellitus, type II Essential (primary) hypertension Hyperlipidemia Nonrheumatic aortic (valve) stenosis Urinary tract infection Home Medications [facility] 1 tab PO DAILY 09/24/13 [History Last Taken Unknown] aspirin 81 mg tablet,delayed release (Adult Aspirin Regimen) 81 mg PO QDAY 08/28/17 [History Last Taken Unknown] cholecalciferol (vitamin D3) 10 mcg (400 unit) capsule 5,000 unit PO DAILY 09/19/18 [History Last Taken Unknown] clopidogrel 75 mg tablet 75 mg PO DAILY #90 tabs 03/16/21 [Rx Last Taken Unknown] metoprolol succinate 25 mg tablet,extended release 24 hr 25 mg PO BID #180 tabs 03/16/21 [Rx Last Taken Unknown] pantoprazole 40 mg tablet,delayed release (Protonix) 40 mg PO DAILY #90 tabs 03/16/21 [Rx Last Taken Unknown] pravastatin 40 mg tablet 40 mg PO QHS #90 tabs 03/16/21 [Rx Last Taken Unknown] lisinopril 5 mg tablet 10 mg PO BID 05/03/21 [History Last Taken Unknown] tramadol 50 mg tablet 50 mg PO Q6H PRN pain #10 tabs 03/01/23 [Rx Last Taken Unknown] amoxicillin 875 mg-potassium clavulanate 125 mg tablet 875 mg (0.875 x 875-125 mg) PO Q12H #14 TABLETS 04/12/23 [Rx Last Taken Unknown] Allergy/AdvReac Type Severity Reaction Status Date / Time codeine Allergy Unknown Verified 04/12/23 14:33 Sulfa (Sulfonamide Allergy Unknown Verified 04/12/23 14:33 Antibiotics) Family History Father CAD (coronary artery disease) Mother Atrial fibrillation Cancer Sister Atrial fibrillation Hypertension Surgical History H/O coronary artery bypass surgery (01/14/10) History of appendectomy History of cholecystectomy History of coronary artery stent placement (01/17/10) History of left heart catheterization (07/05/10) History of left knee surgery Social History (Updated 04/12/23 @ 17:[address] Adria James MD) household members: spouse Smoking Status: Never smoker alcohol intake: never ROS ROS ED Constitutional Constitutional ED: Denies chills, fever(s), subjective, sweats or weight loss Eyes Eyes: Denies blurry vision, change in vision or diplopia ENT ENT ED: Denies rhinorrhea or sore throat Cardiovascular Cardiovascular: Denies chest pain or palpitations Respiratory/Chest Respiratory/Chest: Denies cough, dyspnea or dyspnea on exertion Gastrointestinal Gastrointestinal: Reports abdominal pain; Denies constipation, diarrhea, melena, nausea or vomiting Genitourinary Genitourinary ED: Denies dysuria, hematuria or urinary frequency Musculoskeletal Musculoskeletal: Reports back pain; Denies arthralgias, myalgias or neck pain Integumentary Denies rash Endocrine Endocrinology: Denies cold intolerance or heat intolerance Hematologic/Lymphatic Hematologic/Lymphatic: Reports systems reviewed and no addt'l complaints, except as documented EXAM Physical Exam Const Vital Signs: 04/12/23 14:31 04/12/23 18:00 Temperature 97.8 F Temperature Source Temporal Pulse Rate 62 Respiratory Rate 18 16 Blood Pressure 157/79 H Blood Pressure Mean 105 Pulse Ox 100 Oxygen Delivery Method Room Air Positive well nourished and well developed General Appearance ED: well developed and NAD; Negative for cyanotic, diaphoretic or pallor HEENT Reports moist mucous membranes HEENT Narrative: Head is atraumatic normocephalic. Nares patent. Mucosa moist. Eyes PERRL and EOMs intact bilaterally General Eye ED: Negative for pale conjunctiva or scleral icterus Neck no lymphadenopathy and supple Chest Wall inspection of chest normal and palpation of chest normal Resp normal respiratory effort and clear to auscultation bilaterally Cardio regular rate, regular rhythm, S1 normal heart sound, S2 normal heart sound and no murmurs GI normal to inspection, nondistended, normoactive bowel sounds, non-tender and non-distended; Negative for hepatosplenomegaly or no masses GI Narrative: Patient does have a right inguinal hernia. The hernia is not incarcerated. There is tenderness to deep palpation in the area. There is no jose lymphadenopathy. There is no dermatologic lesions to suggest herpes varicella- zoster. Back/Spine no CVA tenderness Cervical Spine: Negative for cervical spine tenderness Thoracic Spine / Upper Back: Negative for thoracic spinal tenderness Lumbar Spine / Lower Back: Negative for lumbar spinal tenderness Extremity normal to inspection General Extremety ED: Negative for edema or tenderness General Extremity: Negative for edema Neuro oriented x3, CN's II-XII intact bilaterally and no sensory deficits noted Sensorium / Orientation: alert Psych mental status grossly normal Skin no rashes or lesions noted, no wounds and No skin turgor normal General Skin Exam: Negative for elasticity normal, jaundice or pallor MDM MDM MDM Narrative Medical decision making narrative: With pain radiating anteriorly and prior history of kidney stone need to rule out ureterolithiasis. Also need to rule out urinary tract infection. Patient does have an inguinal hernia however it is not incarcerated and doubt this is the cause of her pain. Nurse protocol orders were placed. Urine is pending. CT of the abdomen with out contrast was obtained to evaluate for renal/ureteral lithiasis. Clinically patient does not have findings suggestive of complete or partial bowel obstruction. Lab Data Attestation: I reviewed the patient's lab results. Lab results narrative: CBC is unremarkable. Competence metabolic panel reveals elevated BUN to creatinine ratio of 26:1. GFR is greater than 60. Labs: Laboratory Results - last 24 hr 04/12/23 04/12/23 16:13 18:02 WBC 6.3 RBC 4.44 Hgb 13.2 Hct 41.2 MCV 92.8 MCH 29.7 MCHC 32.0 RDW Std Deviation 44.6 H RDW Coeff of [place] 13.1 Plt Count 225 MPV 11.3 Immature Gran % (Auto) 0.200 Neut % (Auto) 63.0 Lymph % (Auto) 28.4 [place] % (Auto) 5.8 Eos % (Auto) 2.1 Baso % (Auto) 0.5 Absolute Neuts (auto) 4.0 Absolute Lymphs (auto) 1.78 Nucleated RBC % 0 Sodium 141 Potassium 4.4 Chloride 106 Carbon Dioxide 29.0 Anion Gap 6 BUN 25 H Creatinine 0.94 Estim Creat Clear Calc 42.12 Est GFR (MDRD) Af Amer 75 Est GFR (MDRD) Non-Af 62 BUN/Creatinine Ratio 26.7 H Glucose 119 H Calcium 9.4 Total Bilirubin 0.30 AST 20 ALT 17 Alkaline Phosphatase 56 Total Protein 7.5 Albumin 3.7 Globulin 3.8 Albumin/Globulin Ratio 1.0 Urine Color Yellow Urine Clarity Clear Urine pH 6.5 Ur Specific [place] 1.010 Urine Protein Negative Urine Glucose (UA) Normal Urine Ketones Negative Urine Occult Blood 10 H Urine Nitrite Positive H Urine Bilirubin Negative Urine Urobilinogen Normal Ur Leukocyte Esterase 100 H Urine RBC 0 SEEN Urine WBC 0-5 SEEN Ur Squamous Epith Cells 0 SEEN Urine Bacteria 1+ Urine Mucus 0 SEEN Radiography Diagnostic Testing: Clinical Impression(s) from Imaging Studies Abdomen/Pelvis CT 04/12/23 17:12 IMPRESSION: 6 mm obstructing stone in the right lower renal pole. No obstructing stone or hydronephrosis. Acute sigmoid diverticulitis. No focal fluid collection or free air. Due to asymmetry of wall thickening, recommend colonoscopy after acute infection has resolved. 1 cm exophytic intermediate density cystic lesion in the left upper renal pole it is indeterminate. Consider follow-up ultrasound or CT in 3-6 months to assess stability. Alternatively, a multiphase CT or MR abdomen would provide a more definitive diagnosis. Fat and fluid containing right inguinal hernia. Electronically Signed: Patrick Grant MD at 18:12 EDT , CT of the abdomen reveals right inguinal hernia. There is minimal atherosclerotic disease. There is evidence of uncomplicated diverticulitis; Awaiting formal read by radiologist. Radiologist read obstructing stone right pole of the kidney. Per my review there is no evidence of obstructing stone. Discharge Plan Triage Chief Complaint: Abd Pain ED Provider: Adria James Dx/Rx/DC Orders Clinical Impression: Diverticulitis of sigmoid colon, Essential (primary) hypertension, Renal calculus, right, Inguinal hernia, right, Bacteriuria, Renal cyst, right Instructions: ED Diverticulitis, ED Hernia (Adult) Prescriptions: New amoxicillin-pot clavulanate [amoxicillin-pot clavulanate] 875-125 mg tablet 875 mg PO Q12H Qty: 14 0RF No Action aspirin [Adult Aspirin Regimen] 81 mg tablet,delayed release (DR/EC) 81 mg PO QDAY cholecalciferol (vitamin D3) 400 unit capsule 5,000 unit PO DAILY lisinopril 5 mg tablet 10 mg PO BID [facility] 1 tab PO DAILY tramadol 50 mg tablet 50 mg PO Q6H PRN (Reason: pain) Qty: 10 0RF pravastatin 40 mg tablet 40 mg PO QHS Qty: 90 4RF pantoprazole [Protonix] 40 mg tablet,delayed release (DR/EC) 40 mg PO DAILY Qty: 90 3RF metoprolol succinate 25 mg tablet extended release 24 hr 25 mg PO BID Qty: 180 4RF clopidogrel 75 mg tablet 75 mg PO DAILY Qty: 90 4RF Primary Care Provider: Abelardo Mas Referrals: Abelardo Mas DO [Primary Care Provider] - 3-5 Days if not improving Activity Restrictions/Additional Instructions: There is a cystic lesion noted right kidney. You will need a follow-up ultrasound in 3 to 6 months. Disposition Disposition: Home, Self Care
--- NOTE | 2023-04-12 17:12 | CT_ITS ---
INDICATION: Kidney Stone EXAMINATION: CT Abdomen And Pelvis W/O Contrast Injection TECHNIQUE: Helically acquired images were obtained of the abdomen and pelvis without the use of IV contrast. A radiation dose optimization technique was used for this scan. Oral contrast: None. COMPARISON: 11/12/2015 FINDINGS: Evaluation of the solid organs and vascular structures is limited without intravenous contrast. Visualized lung bases: Unremarkable Liver: Unremarkable Gallbladder: Not visualized, possibly surgically absent. Spleen: Unremarkable Pancreas: Unremarkable Adrenal Glands: Unremarkable Kidneys: 6 mm nonobstructing stone in the right lower renal pole. Bilateral simple renal cysts. 1 cm exophytic intermediate density cystic lesion in the left upper renal pole. Vasculature: Moderate aortoiliac atherosclerotic disease. GI Tract: Scattered diverticula throughout the colon.. There is short segment slightly asymmetric bowel wall thickening of the mid sigmoid colon with minimal surrounding fat stranding. The appendix is not visualized. Lymphadenopathy: None Peritoneum: No ascites. Bladder: Unremarkable Reproductive organs: Bilateral tubal ligation clips. Bones/Soft tissues: There are diffuse degenerative changes of the spine. Fat and fluid containing right inguinal hernia. CT/Abdomen/Pelvis without Cont IMPRESSION: 6 mm obstructing stone in the right lower renal pole. No obstructing stone or hydronephrosis. Acute sigmoid diverticulitis. No focal fluid collection or free air. Due to asymmetry of wall thickening, recommend colonoscopy after acute infection has resolved. 1 cm exophytic intermediate density cystic lesion in the left upper renal pole it is indeterminate. Consider follow-up ultrasound or CT in 3-6 months to assess stability. Alternatively, a multiphase CT or MR abdomen would provide a more definitive diagnosis. Fat and fluid containing right inguinal hernia. Electronically Signed: Patrick Grant MD at 18:12 EDT ,
[2023-04-12 18:00] VITALS: RESP 16
[2023-04-12 18:17] LABS: Mucous, Urine 0 SEEN /hpf (<or=2+); Red Blood Cells-Urine 0 SEEN /hpf (0-5); Squamous Epithelial Cells - UA 0 SEEN /hpf (5-10)
[2023-04-12 18:26] LABS: Color, Urine Yellow (Yellow); Glucose, Dipstick Normal (Normal); Ketone-Dipstick Negative (Negative); Leukocyte Esterase-Dipstick 100 /ul (Negative); Nitrite-Dipstick Positive (Negative); Occult Blood-Urine 10 /ul (Negative); Protein-Dipstick Negative (Negative); Urine Bilirubin Dipstick Negative (Negative); Urine Clarity Clear (Clear); Urine Urobilinogen Normal (Normal); Urine pH 6.5 (5.0 - 8.0)
[2023-04-12 18:35] LABS: Bacteria 1+ /hpf (None Seen); White Blood Cells 0-5 SEEN /hpf (0-5)
[2023-04-12] MEDS: Amox/Clavulanate 875 MG Tablet PO (18:56)
== END 2023-04-12 19:02 | disposition home or self-care (01) ==
PROVIDERS: Emergency Provider Emergency Medicine; PCP Family Medicine; Visit Provider Emergency Medicine
DX: K57.32 Diverticulitis of large intestine without perforation or abscess without bleeding (principal); I10 Essential (primary) hypertension; N20.0 Calculus of kidney; K40.90 Unilateral inguinal hernia, without obstruction or gangrene, not specified as recurrent; R82.71 Bacteriuria; N28.1 Cyst of kidney, acquired; I25.10 Atherosclerotic heart disease of native coronary artery without angina pectoris; Z95.1 Presence of aortocoronary bypass graft; Z95.5 Presence of coronary angioplasty implant and graft
CPT/HCPCS: 74176; 80053; 81001; 85025; 87077; 87086; 87088; 87186; 99284; A4216

== ENCOUNTER → 2023-04-18 | Outpatient (CLI) | payer MEDICARE, SELFPAY ==
--- NOTE | 2023-04-18 14:55 | RAD_ITS ---
STUDY: XR Abdomen 1 View 04/18/2023 3:03 PM REASON FOR EXAM: Female, 77 years old. ABDOMINAL PAIN KIDNEY STONES TECHNIQUE: XR Abdomen 1 View COMPARISON: 03.01.23 FINDINGS: Normal visualized lung bases. Right electronic device. There is a moderate amount of colonic fecal material. There is no demonstrated free abdominal air. The visualized liver, spleen and kidneys are grossly normal in size and morphology. Normal soft tissue structures. There are diffuse degenerative changes of the visualized lumbar spine. RAD/Abdomen Single View IMPRESSION: Constipation. Electronically Signed: Venkat Cox MD at 17:26 EDT ,
== END | disposition home or self-care (01) ==
LOC: MTRAD 14:47
PROVIDERS: PCP Family Medicine; Referring Provider Urology; Visit Provider Urology
DX: N20.0 Calculus of kidney (principal)
CPT/HCPCS: 74018

== ENCOUNTER → 2023-04-27 | Outpatient (CLI) | payer MEDICARE, SELFPAY ==
--- NOTE | 2023-04-27 15:40 | CT_ITS ---
STUDY: CT ABDOMEN AND PELVIS WITH AND WITHOUT CONTRAST REASON FOR EXAM: Female, 77 years old. KIDNEY STONES, RENAL LESION RADIATION DOSAGE (If Supplied By Facility): CTDIvol = ( 13.12 ) mGy, DLP = ( 1469.82 ) mGycm TECHNIQUE: Transaxial images were obtained from the dome of the diaphragm to the symphysis pubis without oral contrast. 100mL Isovue 300 was administered. Sagittal and coronal images were reconstructed. Individualized dose optimization techniques were used for this CT. COMPARISON: April 12, 2023 FINDINGS: The visualized lung bases are unremarkable. The visualized portions of the heart are within normal limits. Normal liver. Gallbladder is surgically absent. Dilated intrahepatic and extrahepatic bile ducts. Normal spleen. Normal pancreas. Normal bilateral adrenal glands. Multiple simple bilateral renal cortical cyst appears stable including the 1 cm cyst in the midpole on the left. It now appears simple and not intermediate in density. Punctate nonobstructing nephrolith on the right. Calcified plaque in severe stenosis left renal artery. Thickened gastric wall. Incompletely distended stomach. Normal small intestine. Increased stool and colonic diverticulosis. Appendix not identified. Calcified plaque along the aorta and its branches. Normal inferior vena cava. Normal retroperitoneum. Normal urinary bladder. [Fat-containing bilateral inguinal hernias. New Loop of bowel in the right inguinal canal. No evidence of obstruction. Bilateral tubal ligation clips. Uterus normal. Normal abdominal wall. Normal osseous structures. Subcutaneous stimulator right buttock with lead extending to the sacral foramina on the right. CT/CT Abd/Pelvis W/WO Contrast IMPRESSION: Punctate nonobstructing nephrolith on the right. Increased stool throughout the colon. Colonic diverticulosis. Gastric wall thickening. Recommend GI follow-up. Electronically Signed: Otf Kuhn MD at 23:08 EDT Reading Location ID and State: [facility] / [place] , Service support ,
== END | disposition home or self-care (01) ==
LOC: CT 15:39
PROVIDERS: PCP Family Medicine; Referring Provider Urology; Visit Provider Urology
DX: N20.0 Calculus of kidney (principal); N28.89 Other specified disorders of kidney and ureter
CPT/HCPCS: 74178; Q9967

== ENCOUNTER → 2023-05-29 | Outpatient (CLI) | payer MEDICARE, SELFPAY ==
--- NOTE | 2023-05-29 13:02 | ECHOD_ITS ---
Reason For Study: REASSESS Procedure This was a 2D Doppler, Color Flow transthoracic echocardiogram. Exam performed in department. Left Ventricle Normal LV size. Left ventricular systolic function is normal. The estimated ejection fraction is 65 %. Stage 1 diastolic dysfunction. No regional wall motion abnormalities noted. Right Ventricle Normal RV size. Normal systolic function. Aortic Valve Trisinus/trileaflet aortic valve. Mild focal aortic valve calcification. Peak aortic valve gradient 42 mmHg. Mean aortic valve gradient 24 mmHg. Moderate aortic stenosis. Pulmonic Valve Normal pulmonic valve. Great Vessels Normal aortic root. The pulmonary artery is normal size. Normal inferior vena cava. Pericardium/Pleural No pericardial effusion. MMode/2D Measurements & Calculations LVIDd: 4.6 cm IVSd: 0.98 cm Ao root diam: 3.0 cm LVIDs: 3.2 cm LVPWd: 1.1 cm FS: 30.6 % LAV(MOD-bp): 41.9 ml SV(MOD-sp4): 57.5 ml LVAd ap4: 25.6 cm2 LAV(MOD-bp) Indexed: 25.4 ml/m2 LVLd ap4: 7.4 cm LAV(MOD-sp2): 40.2 ml EDV(MOD-sp4): 73.7 ml LAV(MOD-sp4): 38.6 ml EDV(sp4-el): 75.5 ml LVAs ap4: 10.4 cm2 LVLs ap4: 5.4 cm ESV(MOD-sp4): 16.2 ml ESV(sp4-el): 17.0 ml EF(MOD-sp4): 78.0 % EF(sp4-el): 77.5 % SV(sp4-el): 58.5 ml LA A4 area: 15.1 cm2 LA dimension(2D): 1.7 cm TAPSE: 1.2 cm RA A4 area: 12.3 cm2 Time Measurements MV dec time: 0.33 sec Doppler Measurements & Calculations MV E max phuc: 58.0 cm/sec Lat Peak E' Phuc: 8.7 cm/sec Med Peak E' Phuc: 4.4 cm/sec MV A max phuc: 87.5 cm/sec E/E' lat: 6.7 E/E' med: 13.1 MV E/A: 0.66 MV V2 max: 105.3 cm/sec MV dec slope: 177.7 cm/sec2 Ao V2 max: 323.4 cm/sec MV max P.5 mmHg Ao max P.8 mmHg MV V2 mean: 62.6 cm/sec Ao V2 mean: 231.4 cm/sec MV mean P.9 mmHg Ao mean P.4 mmHg MV V2 VTI: 25.8 cm Ao V2 VTI: 79.5 cm AV (velocity ratio): 0.37 LV V1 max: 119.0 cm/sec PA V2 max: 124.2 cm/sec LV V1 max P.7 mmHg PA V2 mean: 87.0 cm/sec LV V1 mean P.9 mmHg LV V1 mean: 77.3 cm/sec LV V1 VTI: 29.3 cm ECHO/Echo Complete Interpretation Summary Normal LV size. Left ventricular systolic function is normal. The estimated ejection fraction is 65 %. Stage 1 diastolic dysfunction. Mean aortic valve gradient 24 mmHg. Moderate aortic stenosis. Ordering Physician: Abelardo Mas Referring Physician: Abelardo Mas Performed By: Cele Sargent RCS
== END | disposition home or self-care (01) ==
PROVIDERS: PCP Family Medicine; Referring Provider Family Medicine; Visit Provider Family Medicine
DX: I35.0 Nonrheumatic aortic (valve) stenosis (principal)
CPT/HCPCS: 93306

== ENCOUNTER 2023-05-30 12:55 | Emergency (ER) | payer MEDICARE, SELFPAY ==
[2023-05-30 12:56] VITALS: BP 167/80; PULSE 54; RESP 18; TEMP 36.2; O2SAT 100; BMI 25.0
--- NOTE | 2023-05-30 13:08 | EKG12_ITS ---
Test Reason : SOB Blood Pressure : / mmHG Vent. Rate : 054 BPM Atrial Rate : 054 BPM P-R Int : 148 ms QRS Dur : 086 ms QT Int : 444 ms P-R-T Axes : 039 -13 131 degrees QTc Int : 421 ms Sinus bradycardia Septal infarct (cited on or before 19-APR-2010) Inferior infarct , age undetermined ST & T wave abnormality, consider anterolateral ischemia Abnormal ECG Confirmed by CHRYSTAL FONTANEZ, JAYLEEN ([id number]), film and video editor CHARITY HARDEN ([id number]) on 05/31/2023 1:12:49 PM Referred By: BETHANY Confirmed By:JAYLEEN JARRELL MD
--- NOTE | 2023-05-30 13:30 | RAD_ITS ---
STUDY: X-RAY CHEST REASON FOR EXAM: Female, 77 years old. Chest pain TECHNIQUE: Single AP portable view of the chest. COMPARISON: Comparison is made with prior study dated June 18, 2014. FINDINGS: Hyperinflation. The lungs are clear. There is no demonstrated pleural abnormality. Sternal cerclage wires and vascular clips are present from a prior sternotomy and coronary artery bypass graft procedure (CABG). Normal mediastinum and jimbo. Normal visualized pulmonary arteries. There is atherosclerotic calcification of the aortic arch with tortuosity. There are degenerative changes of the visualized thoracic spine. Normal visualized ribs, clavicles, and shoulders. There is no demonstrated abnormality of the visualized soft tissue structures of the upper abdomen. RAD/Chest 1 View (Portable) IMPRESSION: Hyperinflation. The lungs are clear. Electronically Signed: Donovan Roche MD at 13:51 EDT ,
[2023-05-30 13:33] LABS: Absolute Lymphocyte Count 2.23 X10^3/uL (0.83-4.51); Absolute Neutrophil Count 3.1 X10^3/uL (2.0-7.7); Basophil# 0.04 X10^3/uL; Basophil% 0.7 % (0-1); Eosinophil# 0.16 X10^3/uL; Eosinophils% 2.7 % (0-5); Hematocrit 40.1 % (37-47); Hemoglobin 12.8 g/dL (12.0-15.0); Lymphocyte # 2.23 X10^3/ul (0.83-4.51); Lymphocyte % 37.4 % (19-41); Mean Corp Hgb Conc 31.9 g/dL (32-36); Mean Corpuscular Hgb 29.8 pg (27.0-32.0); Mean Corpuscular Volume 93.5 fL (81-99); Mean Platelet Vol. 10.9 fl (6.2-12.0); Monocyte# 0.45 X10^3/uL; Monocyte% 7.5 % (0-10); NRBC Flagged by Analyzer 0 % (0-5); Neutrophil # 3.08 X10^3/uL (2.7-7.7); Neutrophil % 51.5 % (47-70); Platelet Count 234 K/mm3 (150-450); RBC Distribution Width SD 44.2 fl (35.1-43.9); Red Blood Count 4.29 M/mm3 (4.2-5.4)
[2023-05-30 13:37] VITALS: BP 144/76; PULSE 52; RESP 12
[2023-05-30 13:48] LABS: Anion Gap 4 (5-15); BUN 22 mg/dL (7-18); BUN/Creat Ratio 28.4 RATIO (10-20); Calcium,Total 9.8 mg/dL (8.5-10.1); Chloride 109 mmol/L (98-107); Creatinine, Serum 0.78 mg/dL (0.55-1.02); EST Glomerular Filtration Rate 77 mL/min (>60); Est Glom Filt Rate - Afr Amer 93 mL/min (>60); Estimated Creatinine Clearance 39.59 ml/min; Glucose 88 mg/dL (74-106); Potassium 3.9 mmol/L (3.5-5.1); Sodium Level 142 mmol/L (136-145); Troponin-I HS 11 pg/mL (3.0-54.0)
[2023-05-30 13:56] LABS: BNP,B-Type NATRIURETIC PEPTIDE 89.9 pg/mL (0-100)
[2023-05-30 14:25] VITALS: BP 147/80; PULSE 48; RESP 14
--- NOTE | 2023-05-30 14:33 | EDS_ITS ---
HPI History of Present Illness Chief Complaint: Shortness of Breath Narrative Narrative: 7-year-old female presenting with shortness of breath for 2 months. Patient states she has been evaluated for this by her primary care physician and had an echocardiogram done yesterday. She is also had some intermittent abdominal pain and had a negative CT scan with exception of some thickening of the gastric region and she has a scheduled upper and lower endoscopy. Patient states there is no change in the shortness of breath. She states she walks short distances and she gets really fatigued and sleeps a lot more. No fevers or chills. No cough. She is eating and drinking normally. Making normal urine and stool. No weight loss or weight gain. No lower extremity edema. No orthopnea. [facility] Medical History Atherosclerotic heart disease of [place] coronary artery without angina pectoris Diabetes mellitus, type II Essential (primary) hypertension Hyperlipidemia Nonrheumatic aortic (valve) stenosis Urinary tract infection Home Medications [facility] 1 tab PO DAILY 09/24/13 [History Last Taken Unknown] aspirin 81 mg tablet,delayed release (Adult Aspirin Regimen) 81 mg PO QDAY 08/28/17 [History Last Taken Unknown] cholecalciferol (vitamin D3) 10 mcg (400 unit) capsule 5,000 unit PO DAILY 09/19/18 [History Last Taken Unknown] clopidogrel 75 mg tablet 75 mg PO DAILY #90 tabs 03/16/21 [Rx Last Taken Unknown] metoprolol succinate 25 mg tablet,extended release 24 hr 25 mg PO BID #180 tabs 03/16/21 [Rx Last Taken Unknown] pantoprazole 40 mg tablet,delayed release (Protonix) 40 mg PO DAILY #90 tabs 03/16/21 [Rx Last Taken Unknown] pravastatin 40 mg tablet 40 mg PO QHS #90 tabs 03/16/21 [Rx Last Taken Unknown] amlodipine 5 mg tablet 5 mg PO BID 04/16/23 [History Last Taken Unknown] lisinopril 20 mg tablet 20 mg PO BID #180 tabs 05/04/23 [Rx Last Taken Unknown] vibegron 75 mg tablet (Gemtesa) 75 mg PO DAILY 05/15/23 [History Last Taken Unknown] Allergy/AdvReac Type Severity Reaction Status Date / Time codeine Allergy Anaphylaxis Verified 05/30/23 12:56 Sulfa (Sulfonamide Allergy Anaphylaxis Verified 05/30/23 12:56 Antibiotics) Family History Father CAD (coronary artery disease) Mother Atrial fibrillation Cancer Sister Atrial fibrillation Hypertension Father Colon cancer Surgical History H/O coronary artery bypass surgery (01/14/10) History of appendectomy History of cholecystectomy History of coronary artery stent placement (01/17/10) History of left heart catheterization (07/05/10) History of left knee surgery S/P right knee surgery Social History household members: spouse Smoking Status: Never smoker alcohol intake: never ROS ROS ED Constitutional Constitutional ED: Denies chills, fever(s) or sweats Eyes Eyes: Denies blurry vision or change in vision ENT ENT ED: Denies ear pain or sore throat Cardiovascular Cardiovascular: Denies chest pain, palpitations or racing heartbeat Respiratory/Chest Respiratory/Chest: Reports dyspnea and dyspnea on exertion; Denies sputum Gastrointestinal Gastrointestinal: Reports abdominal pain; Denies constipation, diarrhea, nausea or vomiting Genitourinary Genitourinary ED: Denies dysuria, hematuria or urinary frequency Musculoskeletal Musculoskeletal: Denies arthralgias, myalgias or neck pain Integumentary Denies abscess, Abrasions or rash Neurologic Neurologic: Denies headache(s), paresthesias or weakness Psychiatric Psychiatric: Denies anxiety, depression, suicidal ideation or suicidal thoughts Endocrine Endocrinology: Denies polydipsia or polyuria EXAM Physical Exam Const Vital Signs: 05/30/23 12:56 05/30/23 13:29 05/30/23 13:37 Temperature 97.1 F L Temperature Source Temporal Pulse Rate 54 L 52 L Respiratory Rate 18 12 Respiratory Effort Short of Breath Respiratory Depth Normal Respiratory Pattern Normal Blood Pressure 167/80 H 144/76 H Blood Pressure Mean 109 98 Pulse Ox 100 Oxygen Delivery Method Room Air 05/30/23 14:25 Temperature Temperature Source Pulse Rate 48 L Respiratory Rate 14 Respiratory Effort Respiratory Depth Respiratory Pattern Blood Pressure 147/80 H Blood Pressure Mean Pulse Ox Oxygen Delivery Method Positive well nourished General Appearance ED: Negative for pallor HEENT Reports moist mucous membranes Eyes PERRL and EOMs intact bilaterally Neck no lymphadenopathy Resp normal respiratory effort and clear to auscultation bilaterally Auscultation: Negative for rales, rhonchi or wheezes Cardio regular rate and regular rhythm GI non-tender Neuro oriented x3 and CN's II-XII intact bilaterally Sensorium / Orientation: alert Motor Exam: strength 5/5 throughout and general weakness Psych mental status grossly normal Skin no wounds and skin turgor normal General Skin Exam: Negative for jaundice or pallor MDM MDM MDM Narrative Medical decision making narrative: 77-year-old female presenting with shortness of breath for 2 months. There is no change in this at all today. Differential includes pneumonia, CHF, acute coronary syndrome, electrolyte abnormalities, dehydration CBC was obtained to assess white blood cell count, hemoglobin, platelets this was all within normal limits. BMP was obtained to assess renal function electrolytes this is also very normal. High-sensitivity: 11. BNP 89.9. Chest x-ray my interpretation show no acute process. EKG on my interpretation is a sinus bradycardia with a ventricular rate of 54 bpm without sign of ischemic change or ectopy. Reviewed her echocardiogram from yesterday which showed a EF and grade 1 diastolic dysfunction. The patient with Dr. Mas who recommended just follow-up as already scheduled with cardiology and to follow-up with GI for colonoscopy. Patient is amenable to this plan. She will be discharged home with her family. Impression: 1. Dyspnea 2. Abdominal pain?resolved 3. Fatigue Lab Data Labs: Laboratory Results - last 24 hr 05/30/23 13:25 WBC 6.0 RBC 4.29 Hgb 12.8 Hct 40.1 MCV 93.5 MCH 29.8 MCHC 31.9 L RDW Std Deviation 44.2 H RDW Coeff of [place]hind[place] 13.0 Plt Count 234 MPV 10.9 Immature Gran % (Auto) 0.200 Neut % (Auto) 51.5 Lymph % (Auto) 37.4 [place] % (Auto) 7.5 Eos % (Auto) 2.7 Baso % (Auto) 0.7 Absolute Neuts (auto) 3.1 Absolute Lymphs (auto) 2.23 Nucleated RBC % 0 Sodium 142 Potassium 3.9 Chloride 109 H Carbon Dioxide 29.0 Anion Gap 4 L BUN 22 H Creatinine 0.78 Estim Creat Clear Calc 39.59 Est GFR (MDRD) Af Amer 93 Est GFR (MDRD) Non-Af 77 BUN/Creatinine Ratio 28.4 H Glucose 88 Calcium 9.8 Troponin I High Sens 11 B-Natriuretic Peptide 89.9 Radiography Diagnostic Testing: Clinical Impression(s) from Imaging Studies Chest X-Ray 05/30/23 13:30 IMPRESSION: Hyperinflation. The lungs are clear. Electronically Signed: Donovan Roche MD at 13:51 EDT , Discharge Plan Triage Chief Complaint: Shortness of Breath ED Provider: Jai Soliman Dx/Rx/DC Orders Instructions: ED Dyspnea Prescriptions: No Action aspirin [Adult Aspirin Regimen] 81 mg tablet,delayed release (DR/EC) 81 mg PO QDAY cholecalciferol (vitamin D3) 400 unit capsule 5,000 unit PO DAILY Gemtesa 75 mg tablet 75 mg PO DAILY Patient Comments: TAKE 1 TABLET BY MOUTH EVERY DAY [facility] 1 tab PO DAILY pravastatin 40 mg tablet 40 mg PO QHS Qty: 90 4RF pantoprazole [Protonix] 40 mg tablet,delayed release (DR/EC) 40 mg PO DAILY Qty: 90 3RF metoprolol succinate 25 mg tablet extended release 24 hr 25 mg PO BID Qty: 180 4RF clopidogrel 75 mg tablet 75 mg PO DAILY Qty: 90 4RF amlodipine 5 mg tablet 5 mg PO BID lisinopril 20 mg tablet 20 mg PO BID Qty: 180 3RF Primary Care Provider: Abelardo Mas Referrals: Abelardo Mas DO [Primary Care Provider] - Disposition Disposition: Home, Self Care
== END 2023-05-30 14:35 | disposition home or self-care (01) ==
PROVIDERS: Emergency Provider Student in an Organized Health Care Education/Training Program; PCP Family Medicine; Visit Provider Student in an Organized Health Care Education/Training Program
DX: R06.00 Dyspnea, unspecified (principal); R53.83 Other fatigue; E78.5 Hyperlipidemia, unspecified; I10 Essential (primary) hypertension; I25.10 Atherosclerotic heart disease of native coronary artery without angina pectoris; Z79.82 Long term (current) use of aspirin; Z79.899 Other long term (current) drug therapy; Z95.1 Presence of aortocoronary bypass graft; Z95.5 Presence of coronary angioplasty implant and graft
CPT/HCPCS: 71045; 80048; 83880; 84484; 85025; 93005; 99284; A4216

== ENCOUNTER 2023-06-21 09:15 | Observation (INO) | payer MEDICARE, SELFPAY ==
[2023-06-21] VITALS (7 sets, daily range): BP systolic 126–151; BP diastolic 70–76; PULSE 51–66; RESP 11–16; TEMP 35.9–37.1; O2SAT 97–100; BMI 24.5
--- NOTE | 2023-06-21 09:39 | RAD_ITS ---
STUDY: X-RAY CHEST REASON FOR EXAM: Female, 77 years old. Chest pain TECHNIQUE: Single AP portable view of the chest. COMPARISON: Comparison is made with prior study May 30, 2023. FINDINGS: EKG electrodes are seen. The lungs are clear and expanded. There is no demonstrated pleural abnormality. Sternal cerclage wires and vascular clips are present from a prior sternotomy and coronary artery bypass graft procedure (CABG). Borderline cardiomegaly. Normal mediastinum and jimbo. Normal visualized pulmonary arteries. There is atherosclerotic calcification of the aortic arch with tortuosity. There are degenerative changes of the visualized thoracic spine. Normal visualized ribs, clavicles, and shoulders. There is no demonstrated abnormality of the visualized soft tissue structures of the upper abdomen. RAD/Chest 1 View (Portable) IMPRESSION: Stable examination. No acute abnormality seen. Electronically Signed: Donovan Roche MD at 10:35 EDT ,
--- NOTE | 2023-06-21 09:45 | EKG12_ITS ---
Test Reason : SOB Blood Pressure : / mmHG Vent. Rate : 058 BPM Atrial Rate : 058 BPM P-R Int : 164 ms QRS Dur : 092 ms QT Int : 448 ms P-R-T Axes : -17 -12 135 degrees QTc Int : 439 ms Sinus bradycardia Septal infarct , age undetermined Inferior infarct , age undetermined ST & T wave abnormality, consider anterolateral ischemia Abnormal ECG Confirmed by CHRYSTAL FONTANEZ, JAYLEEN ([id number]), managing editor POLI REID ([id number]) on 06/26/2023 11:56:13 AM Referred By: Confirmed By:JAYLEEN JARRELL MD
--- NOTE | 2023-06-21 09:46 | ED.VIS.DYS ---
HPI History of Present Illness Chief Complaint: Shortness of Breath Informant: patient and spouse/S.O. Onset/Context/Timing Onset: Weeks Context: gradual Timing: Intermittent Quality: Positive for Dyspnea on exertion; Negative for Orthopnea, PND or Wheezing Current Severity: Gone Maximum Severity: Mild Worsened by: Exertion Relieved by: Rest Associated Symptoms cough Chest Pain: Positive for None Narrative Narrative: 77-year-old female history of CAD, CABG, stent on Plavix recently diagnosed with COVID about a week ago. Also history of diabetes and prior DVT. Was seen on 913 and a negative work-up. Denies any recent travel, surgery, immobilization. Denies any leg pain or swelling. Denies any hemoptysis. Diagnosed with COVID a week ago but is improving. PE Risk Factors: Positive for Prior DVT or PE; Negative for Cancer, OCP + Smoking + > 35, Recent immobilization, Recent surgery or Recent travel Prior similar symptoms: Yes Recent Illness/Hospitalization: No PFSH PFSH Medical History Atherosclerotic heart disease of [place] coronary artery without angina pectoris Diabetes mellitus, type II Essential (primary) hypertension Hyperlipidemia Nonrheumatic aortic (valve) stenosis Urinary tract infection Home Medications [facility] 1 tab PO DAILY 09/24/13 [History Last Taken Unknown] aspirin 81 mg tablet,delayed release (Adult Aspirin Regimen) 81 mg PO QDAY 08/28/17 [History Last Taken Unknown] cholecalciferol (vitamin D3) 10 mcg (400 unit) capsule 5,000 unit PO DAILY 09/19/18 [History Last Taken Unknown] clopidogrel 75 mg tablet 75 mg PO DAILY #90 tabs 03/16/21 [Rx Last Taken Unknown] metoprolol succinate 25 mg tablet,extended release 24 hr 25 mg PO BID #180 tabs 03/16/21 [Rx Last Taken Unknown] pantoprazole 40 mg tablet,delayed release (Protonix) 40 mg PO DAILY #90 tabs 03/16/21 [Rx Last Taken Unknown] pravastatin 40 mg tablet 40 mg PO QHS #90 tabs 03/16/21 [Rx Last Taken Unknown] amlodipine 5 mg tablet 5 mg PO BID 04/16/23 [History Last Taken Unknown] lisinopril 20 mg tablet 20 mg PO BID #180 tabs 05/04/23 [Rx Last Taken Unknown] vibegron 75 mg tablet (Gemtesa) 75 mg PO DAILY 05/15/23 [History Last Taken Unknown] dexamethasone 6 mg tablet 6 mg PO DAILY #5 tabs 06/15/23 [Rx Last Taken Unknown] Allergy/AdvReac Type Severity Reaction Status Date / Time codeine Allergy Anaphylaxis Verified 06/21/23 09:16 Sulfa (Sulfonamide Allergy Anaphylaxis Verified 06/21/23 09:16 Antibiotics) Family History Father CAD (coronary artery disease) Mother Atrial fibrillation Cancer Sister Atrial fibrillation Hypertension Father Colon cancer Surgical History H/O coronary artery bypass surgery (01/14/10) History of appendectomy History of cholecystectomy History of coronary artery stent placement (01/17/10) History of left heart catheterization (07/05/10) History of left knee surgery S/P right knee surgery Social History household members: spouse Smoking Status: Never smoker alcohol intake: never ROS ROS ED ROS Narrative Exertional shortness of breath. Review of Systems ROS Unobtainable: Denies due to encephalopathy Constitutional Constitutional ED: Denies chills or fever(s) Eyes Eyes: Denies blurry vision ENT ENT ED: Denies ear pain Cardiovascular Cardiovascular: Denies chest pain, orthopnea, palpitations, paroxysmal nocturnal dyspnea or racing heartbeat Respiratory/Chest Respiratory/Chest: Reports dyspnea and dyspnea on exertion; Denies cough, orthopnea, paroxysmal nocturnal dyspnea or sputum Gastrointestinal Gastrointestinal: Denies abdominal pain, constipation, diarrhea, melena, nausea or vomiting Genitourinary Genitourinary ED: Denies dysuria or hematuria Musculoskeletal Musculoskeletal: Denies arthralgias Integumentary Denies abscess Neurologic Neurologic: Denies headache(s) Psychiatric Psychiatric: Denies anxiety or depression Endocrine Endocrinology: Denies cold intolerance Hematologic/Lymphatic Hematologic/Lymphatic: Denies easy bleeding, easy bruising or lymphadenopathy Allergic/Immunologic Allergic/Immunologic ED: Denies mouth swelling, tongue swelling or urticaria EXAM Physical Exam Narrative Exam Narrative: 77-year-old female no acute distress. Vital signs stable afebrile. Pulse ox 100% on room air no signs hypoxia. at bedside. HEENT exam unremarkable. Neck nontender no lymphadenopathy. Lungs clear to auscultation bilaterally. Heart regular rhythm rate about 66 she does have a 3/6 systolic ejection murmur. Abdomen soft nontender. Moving all 4 extremities. Calves are nontender without edema or cords. Equal symmetrical radial pulses. Neurologically she is awake and alert with no focal motor deficits. Const Vital Signs: 06/21/23 09:16 06/21/23 09:55 06/21/23 09:56 Temperature 98 F Temperature Source Temporal Pulse Rate 66 Respiratory Rate 14 Respiratory Effort Short of Breath Respiratory Depth Normal Respiratory Pattern Normal Blood Pressure 151/76 H Blood Pressure Mean 101 Pulse Ox 100 97 Oxygen Delivery Method Room Air Room Air Room Air Positive well nourished and well developed; Negative for obese, cachectic, contractures or unkempt General Appearance ED: well developed and NAD; Negative for unkempt, cachectic, contractures or pallor Nutritional Appearance: Negative for cachectic or obese HEENT Reports moist mucous membranes atraumatic; Negative for trauma or tenderness Eyes PERRL and EOMs intact bilaterally General Eye ED: Negative for pale conjunctiva, scleral icterus or other Neck no lymphadenopathy, supple, no meningeal signs and no JVD General: Negative for tenderness Lymph Lymphatic: Negative for other Chest Wall Chest: Negative for other Resp normal respiratory effort and clear to auscultation bilaterally Effort and Inspection: Negative for pain with movement Auscultation: Negative for rales, rhonchi or wheezes Cardio regular rate, regular rhythm, S1 normal heart sound, S2 normal heart sound and no murmurs Rate: Negative for bradycardia or tachycardic Rhythm: Negative for abnormal rhythm GI non-tender, non-distended and no masses Inspection: Negative for other Auscultation: normoactive bowel sounds Palpation: Negative for tender or guarding Back/Spine no CVA tenderness and normal to inspection General Back: Negative for CVA tenderness Extremity General Extremety ED: Negative for edema or tenderness General Extremity: Negative for edema Neuro oriented x3 and CN's II-XII intact bilaterally Sensorium / Orientation: alert, oriented to person, oriented to place and oriented to time; Negative for orientation impaired, confused, lethargic or stuporous Speech: speech normal Motor Exam: strength 5/5 throughout Psych mental status grossly normal Appearance: Negative for unkempt Attitude: No agitated Mood & Affect: Negative for depressed, anxious or tearful Thought Process: normal thought process Skin no wounds and skin turgor normal General Skin Exam: Negative for pallor Lesions: no lesions Rashes: no rashes Trauma: Negative for abrasion or laceration MDM MDM MDM Narrative Medical decision making narrative: 77-year-old with intermittent exertional dyspnea. No chest pain. History of cardiac disease and prior DVT. She will need a cardiac work-up with a D-dimer. She did have a work-up 2 to 3 weeks ago which was unremarkable. Exam is benign other than a chronic heart murmur which she knew about. Repeat exam patient is doing well. We went over all of her test results including her EKG and x-ray. Her work-up is relatively negative. There are some new inverted T waves compared to the last EKG. However my concern is she is having worsening symptoms. With a single flight of stairs she gets short of breath and at times has chest pain. That has progressively worsened over the last month. Clinically this sounds cardiac in etiology. The lesion needs to be admitted for further testing either stress test or cardiac catheterization. 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 Abel Weems. Her CABG and stents were around 12 years ago. Her D-dimer is elevated I do not think this is a PE clinically she has had a DVT before we will obtain a CTA. History & Record Review Discussion w/independent historian: Patient and Family Additional record(s) reviewed:: Prior inpatient record, Prior outpatient record, Prior ED visit and Prior labs Lab Data Attestation: I reviewed the patient's lab results. Lab results narrative: CBC shows a white count of 5.5. H&H 13 and 40. Platelets 189. Chemistries show a gap of 4 BUN and creatinine 25 and 0.9. Glucose 166 troponin is normal at 13 D-dimer is elevated at 1.84. CTA of the chest ordered. CTA of the chest showed no PE. Read by the radiologist. Reviewed by me. Labs: Laboratory Results - last 24 hr 06/21/23 09:52 WBC 5.5 RBC 4.39 Hgb 13.1 Hct 40.1 MCV 91.3 MCH 29.8 MCHC 32.7 RDW Std Deviation 41.5 RDW Coeff of [place] 12.4 Plt Count 189 MPV 11.0 Immature Gran % (Auto) 0.400 Neut % (Auto) 60.2 Lymph % (Auto) 30.5 [place] % (Auto) 6.9 Eos % (Auto) 1.5 Baso % (Auto) 0.5 Absolute Neuts (auto) 3.3 Absolute Lymphs (auto) 1.68 Nucleated RBC % 0 D-Dimer Quant (PE/DVT) 1.84 H* Sodium 139 Potassium 4.1 Chloride 107 Carbon Dioxide 28.0 Anion Gap 4 L BUN 25 H Creatinine 0.92 Estim Creat Clear Calc 43.03 Est GFR (MDRD) Af Amer 76 Est GFR (MDRD) Non-Af 63 BUN/Creatinine Ratio 27.1 H Glucose 166 H Calcium 8.9 Troponin I High Sens 13 Radiography Chest X-Ray - ED: 1 View, Read by ED Physician, Heart, Lungs, Mediastinum, Bony Structures, No Acute Disease and Chronic Changes Diagnostic Testing: Clinical Impression(s) from Imaging Studies Chest X-Ray 06/21/23 09:39 IMPRESSION: Stable examination. No acute abnormality seen. Electronically Signed: Donovan Roche MD at 10:35 EDT , Chest CTA 06/21/23 10:28 IMPRESSION: No evidence of pulmonary embolism. Coronary artery calcification. Left renal cyst. Electronically Signed: Donovan Roche MD at 11:58 EDT , Chest x-ray, portable, single view, interpreted by myself shows chronic changes no acute process. Normal cardiac silhouette. Normal mediastinum. Normal lung swenson. No effusions. No infiltrates. Rhythm Strip Rhythm Strip: Sinus Rhythm Rate: 58 Ectopy: None EKG Initial EKG: Attestation: I personally reviewed and interpreted this EKG as follows: Interpretation: Sinus Rhythm and No Acute Injury Pattern Comments: Sinus rhythm rate of 58. No ST elevation. Diffuse symmetrical inverted T waves in 1, aVL, V2, V3, V4, V5 and V6. Seen on prior EKG from May but more diffuse. Prior EKG tracings: available for review Prior: Changed Discharge Plan Dx/Rx/DC Orders Clinical Impression: Exertional dyspnea, Atherosclerotic heart disease of [place] coronary artery without angina pectoris, COVID-19, Chest pain, Hx of CABG, History of heart artery stent, History of diabetes mellitus Disposition Disposition: Acute Care Hospital [facility]
[2023-06-21 09:58] LABS: Absolute Lymphocyte Count 1.68 X10^3/uL (0.83-4.51); Absolute Neutrophil Count 3.3 X10^3/uL (2.0-7.7); Basophil# 0.03 X10^3/uL; Basophil% 0.5 % (0-1); Eosinophil# 0.08 X10^3/uL; Eosinophils% 1.5 % (0-5); Hematocrit 40.1 % (37-47); Hemoglobin 13.1 g/dL (12.0-15.0); Lymphocyte # 1.68 X10^3/ul (0.83-4.51); Lymphocyte % 30.5 % (19-41); Mean Corp Hgb Conc 32.7 g/dL (32-36); Mean Corpuscular Hgb 29.8 pg (27.0-32.0); Mean Corpuscular Volume 91.3 fL (81-99); Monocyte# 0.38 X10^3/uL; Monocyte% 6.9 % (0-10); NRBC Flagged by Analyzer 0 % (0-5); Neutrophil # 3.32 X10^3/uL (2.7-7.7); Neutrophil % 60.2 % (47-70); Platelet Count 189 K/mm3 (150-450); RBC Distribution Width CV 12.4 % (11.6-14.6); RBC Distribution Width SD 41.5 fl (35.1-43.9); Red Blood Count 4.39 M/mm3 (4.2-5.4); White Blood Count 5.5 K/mm3 (4.4-11.0)
[2023-06-21 10:14] LABS: Anion Gap 4 (5-15); BUN 25 mg/dL (7-18); BUN/Creat Ratio 27.1 RATIO (10-20); Calcium,Total 8.9 mg/dL (8.5-10.1); Chloride 107 mmol/L (98-107); Creatinine, Serum 0.92 mg/dL (0.55-1.02); EST Glomerular Filtration Rate 63 mL/min (>60); Est Glom Filt Rate - Afr Amer 76 mL/min (>60); Estimated Creatinine Clearance 43.03 ml/min; Glucose 166 mg/dL (74-106); Potassium 4.1 mmol/L (3.5-5.1); Sodium Level 139 mmol/L (136-145); Troponin-I HS 13 pg/mL (3.0-54.0)
[2023-06-21 10:25] LABS: D-Dimer Quantitative (DVT/PE) 1.84 FEU/ug/m (0.27-0.49)
--- NOTE | 2023-06-21 10:28 | CT_ITS ---
STUDY: CTA CHEST REASON FOR EXAM: Female, 77 years old. Elevated d-dimer and dyspnea. Shortness of breath. RADIATION DOSAGE (If Supplied By Facility): CTDIvol = ( 5.94 ) mGy, DLP = ( 183.46 ) mGycm TECHNIQUE: The examination was performed with the intravenous administration of IV 100mL [id number]-370. Post-processing of the angiographic images was performed, with multiplanar reformation and 3D reconstruction. Individualized dose optimization techniques were used for this CT. COMPARISON: None. FINDINGS: Normal enhancement of the main pulmonary artery and right and left pulmonary arteries. Normal enhancement of the bilateral peripheral pulmonary arteries. There is no demonstrated pulmonary embolism. Normal thoracic aorta and visualized great vessels. There is no demonstrated aortic dissection. There are calcifications of the coronary arteries. Normal mediastinum. Normal hilar regions. Normal visualized trachea and bronchi. The lungs are well expanded. Normal pulmonary parenchyma. Normal pleura. Normal chest wall structures. Normal osseous structures. There is a 2.7 cm cyst in the upper medial aspect of the left kidney. CT/CTA Chest W/WO Contrast IMPRESSION: No evidence of pulmonary embolism. Coronary artery calcification. Left renal cyst. Electronically Signed: Donovan Roche MD at 11:58 EDT ,
--- NOTE | 2023-06-21 10:56 | HP.PCM_ITS ---
HPI - General General Date of Admission: 06/21/23 Date of Service: 06/21/23 HPI Narrative CAT STAFFORD, is a 77 F with a PMH as outlined who presents via the ED on 06/21/2023 with a complaint of shortness of breath which had been going on for about a month. She was recently diagnosed with covid, ~ 5 days prior to her coming in. She had been at home, but her shortness of breath has been worsening, and she got short of breath climbing up even one flight of steps.She denied any chest pain, palpitations, dizziness, nausea, vomiting or any other symptoms. REv iew of systems is otherwise negative. Vitals in the ED were temp of 97.1F, ME of 66, BP of 151/76, RR of 14 and she was saturating at 100% on room air. CBC was unremarkable. D dimer was 1.84. Chemsitry was unremarkable and initial troponin was negative. CXR was stable. EKG showed st depression. CTA was ordered and pending. She is being admitted to be managed for probable worsening angina and chest pain. [facility] Medical History Atherosclerotic heart disease of [place] coronary artery without angina pectoris Diabetes mellitus, type II Essential (primary) hypertension Hyperlipidemia Nonrheumatic aortic (valve) stenosis Urinary tract infection Home Medications Ultra Health Womens 1 tab PO DAILY supplement 09/24/13 [History Last Taken 1 ] aspirin 81 mg tablet,delayed release (Adult Aspirin Regimen) 81 mg PO QDAY CAD 08/28/17 [History Last Taken 06/21/23] cholecalciferol (vitamin D3) 10 mcg (400 unit) capsule 5,000 unit PO DAILY supplement 09/19/18 [History Last Taken 06/21/23] clopidogrel 75 mg tablet 75 mg PO DAILY CAD #90 tabs 03/16/21 [Rx Last Taken 06/21/23] metoprolol succinate 25 mg tablet,extended release 24 hr 25 mg PO BID HTN #180 tabs 03/16/21 [Rx Last Taken 06/21/23] pantoprazole 40 mg tablet,delayed release (Protonix) 40 mg PO DAILY GERD #90 tabs 03/16/21 [Rx Last Taken 06/21/23] pravastatin 40 mg tablet 40 mg PO QHS CAD #90 tabs 03/16/21 [Rx Last Taken 06/20/23] amlodipine 5 mg tablet 5 mg PO BID HTN 04/16/23 [History Last Taken 06/21/23] lisinopril 20 mg tablet 20 mg PO BID htn #180 tabs 05/04/23 [Rx Last Taken 06/21/23] vibegron 75 mg tablet (Gemtesa) 75 mg PO DAILY overactive bladder 05/15/23 [His tory Last Taken 06/21/23] isosorbide mononitrate 30 mg tablet,extended release 24 hr 30 mg PO DAILY #30 tabs 06/22/23 [Rx Last Taken Unknown] Allergy/AdvReac Type Severity Reaction Status Date / Time codeine Allergy Anaphylaxis Verified 06/22/23 13:38 Sulfa (Sulfonamide Allergy Anaphylaxis Verified 06/22/23 13:38 Antibiotics) Family History Father CAD (coronary artery disease) Mother Atrial fibrillation Cancer Sister Atrial fibrillation Hypertension Father Colon cancer Surgical History H/O coronary artery bypass surgery (01/14/10) History of appendectomy History of cholecystectomy History of coronary artery stent placement (01/17/10) History of left heart catheterization (07/05/10) History of left knee surgery S/P right knee surgery Social History household members: spouse Smoking Status: Never smoker alcohol intake: never ROS Constitutional Constitutional: Denies anorexia, chills, fatigue, fever(s), malaise or weakness Eyes Eyes: Denies change in vision ENT HEENT: Denies dysphagia, headache(s), sore throat or throat swelling Cardiovascular Cardiovascular: Reports palpitations; Denies chest pain or edema Respiratory/Chest Respiratory/Chest: Reports shortness of breath at rest and shortness of breath with exertion; Denies cough Musculoskeletal Musculoskeletal: Denies joint pain or joint stiffness Neurologic Neurologic: Denies confusion, dizziness, focal weakness, headache(s) or numbness Psychiatric Psychiatric: Denies anxiety Endocrine Endocrinology: Denies change in body appearance Vital Signs Vital Signs Vital Signs: 06/21/23 09:16 06/21/23 09:55 06/21/23 09:56 Temperature 98 F Temperature Source Temporal Pulse Rate 66 Respiratory Rate 14 Respiratory Effort Short of Breath Respiratory Depth Normal Respiratory Pattern Normal Blood Pressure 151/76 H Blood Pressure Mean 101 Pulse Ox 100 97 Oxygen Delivery Method Room Air Room Air Room Air Weight Weight: 138 lb 7.205 oz Body Mass Index (BMI) 24.5 Physical Exam Const alert, oriented x3, no apparent distress and well nourished General Appearance: cooperative HEENT normocephalic, head/scalp atraumatic and moist oral mucous membranes Eyes PERRL and EOMs intact bilaterally Neck no lymphadenopathy, supple and no JVD Lymph Lymphatic: no lymphadenopathy noted and no lymphedema noted Resp normal respiratory effort, normal air movement and clear to auscultation bila terally Cardio regular rate, regular rhythm, S1 normal heart sound, S2 normal heart sound and no murmurs GI normal to inspection, nondistended, normoactive bowel sounds, soft to palpation, non-tender and non-distended Extremity normal capillary refill, no clubbing, cyanosis or edema and no calf tenderness Skin General Skin Exam: no breakdown Neuro CN's II-XII intact bilaterally and no focal motor deficits Motor Exam: strength 5/5 throughout and general weakness Psych thought process normal and cooperative Appearance: appropriate Results Lab / Micro Data 06/21/23 09:52 06/21/23 09:52 Labs: Laboratory Results - last 24 hr 06/21/23 09:52: WBC 5.5, RBC 4.39, Hgb 13.1, Hct 40.1, MCV 91.3, MCH 29.8, MCHC 32.7, RDW Std Deviation 41.5, RDW Coeff of [place] 12.4, Plt Count 189, MPV 11.0, Immature Gran % (Auto) 0.400, Neut % (Auto) 60.2, Lymph % (Auto) 30.5, [place] % (Auto) 6.9, Eos % (Auto) 1.5, Baso % (Auto) 0.5, Absolute Neuts (auto) 3.3, Absolute Lymphs (auto) 1.68, Nucleated RBC % 0, D-Dimer Quant (PE/DVT) 1.84 H*, Sodium 139, Potassium 4.1, Chloride 107, Carbon Dioxide 28.0, Anion Gap 4 L, BUN 25 H, Creatinine 0.92, Estim Creat Clear Calc 43.03, Est GFR (MDRD) Af Amer 76, Est GFR (MDRD) Non-Af 63, BUN/Creatinine Ratio 27.1 H, Glucose 166 H, Calcium 8.9, Troponin I High Sens 13 Rhythm Strip Rhythm Strip: Sinus Rhythm Rate: 58 Ectopy: None Radiology Impression Chest X-Ray 06/21/23 09:39 IMPRESSION: Stable examination. No acute abnormality seen. Electronically Signed: Donovan Roche MD at 10:35 EDT , Assessment & Plan Assessment/Plan (1) Exertional dyspnea: PLAN: Plan #ANgina * patient has had worsening exertional shortness of breath and easy fatiguability * she has a history of CAD s/p CABG and stents * EKG showed T wave inversions in the lateral leads namely lead I and aVL, V5 and V6. * Troponins are negative. D-dimer was elevated at 1.[address] of the chest was negative for any evidence of PE. * Chest x-ray showed no acute cardiopulmonary process. Consult cardiology as she is high risk for CAD and so stress test even if negative will not be reassuring that she has underlying CAD. * Continue aspirin and Plavix as well as high intensity statin. * Also on metoprolol and lisinopril * #COVID-19 infection * Currently asymptomatic and on room air. Was diagnosed on 06/16/2023. * No need for steroids or remdesivir as she was on room air and stable. * #Type 2 diabetes mellitus: Appears to be diet controlled as she is not on any medication. Will monitor. #CAD s/p CABG and stents: On aspirin, Plavix and statin as above. Also on metoprolol and lisinopril. #DVT prophylaxis: Lovenox CODE STATUS: Full code * Patient, her husbandand daughter counseled extensively about different types of CODE STATUS including full code, DNR CCA and DNR CCA. Patient elects to be full code. * Total oyar-rh-eexk time 16 minutes. Charges/Coding Visit Charges Inpatient E&M: 57729 Subs Hosp L2 Procedures Hospitalists Procedures: 93470 Advncd Care Plan 30 Min
[2023-06-21 13:21] LABS: Troponin-I HS 17 pg/mL (3.0-54.0)
[2023-06-21 15:33] LABS: Troponin-I HS 15 pg/mL (3.0-54.0)
--- NOTE | 2023-06-21 18:23 | PCM.CONS.C ---
Assessment & Plan Assessment/Plan (1) Exertional dyspnea: PLAN: He presents with exertional dyspnea and currently is COVID-positive. Her cardiac enzymes are normal and there are no EKG changes. I did discuss with her over the phone and suggested to her that we should wait for at least 2 week post symptoms and then will see her and consider a cardiac catheterization. She is agreeable to the above approach. Her oxygenation apparently is stable at rest and if there are no change in her symptoms she may be discharged in a.m. for outpatient follow-up and arrangement of the above. (2) Hx of CABG: PLAN: She is status post single-vessel coronary bypass surgery. She had a HOYT to the LAD I suspect this is still patent. We will evaluate this with a cardiac catheterization. Thank you for allowing me to participate in the care of your patient. Please don't hesitate to call if any issues arise. HPI Consult Data Date of Consult: 06/21/23 HPI Narrative HPI Narrative: CAT STAFFORD, is a 77 F who presents with shortness of breath which has been progressive over the last few weeks. She says that unfortunately she did contract COVID and went out shopping and got more short of breath with this and so presented to the emergency room and was admitted. EKG did not demonstrate any significant abnormalities and cardiac enzymes were noted to be normal. Cardiology was called because it was felt that she was having progressive angina. She does have a history of coronary disease status post coronary bypass surgery in 2009 with a left internal mammary artery to the left anterior descending artery and PCI of the circumflex artery in January 2010. She also has a history of nonrheumatic aortic stenosis, hypertension, and hyperlipidemia. [facility] Medical History Atherosclerotic heart disease of [place] coronary artery without angina pectoris Diabetes mellitus, type II Essential (primary) hypertension Hyperlipidemia Nonrheumatic aortic (valve) stenosis Urinary tract infection Home Medications Ultra Health Womens 1 tab PO DAILY supplement 09/24/13 [History Last Taken 06/21/23] aspirin 81 mg tablet,delayed release (Adult Aspirin Regimen) 81 mg PO QDAY CAD 08/28/17 [History Last Taken 06/21/23] cholecalciferol (vitamin D3) 10 mcg (400 unit) capsule 5,000 unit PO DAILY supplement 09/19/18 [History Last Taken 06/21/23] clopidogrel 75 mg tablet 75 mg PO DAILY CAD #90 tabs 03/16/21 [Rx Last Taken 06/21/23] metoprolol succinate 25 mg tablet,extended release 24 hr 25 mg PO BID HTN #180 tabs 03/16/21 [Rx Last Taken 06/21/23] pantoprazole 40 mg tablet,delayed release (Protonix) 40 mg PO DAILY GERD #90 tabs 03/16/21 [Rx Last Taken 06/21/23] pravastatin 40 mg tablet 40 mg PO QHS CAD #90 tabs 03/16/21 [Rx Last Taken 06/20/23] amlodipine 5 mg tablet 5 mg PO BID HTN 04/16/23 [History Last Taken 06/21/23] lisinopril 20 mg tablet 20 mg PO BID htn #180 tabs 05/04/23 [Rx Last Taken 06/21/23] vibegron 75 mg tablet (Gemtesa) 75 mg PO DAILY overactive bladder 05/15/23 [History Last Taken 06/21/23] Allergy/AdvReac Type Severity Reaction Status Date / Time codeine Allergy Anaphylaxis Verified 06/21/23 09:16 Sulfa (Sulfonamide Allergy Anaphylaxis Verified 06/21/23 09:16 Antibiotics) Family History Father CAD (coronary artery disease) Mother Atrial fibrillation Cancer Sister Atrial fibrillation Hypertension Father Colon cancer Surgical History H/O coronary artery bypass surgery (01/14/10) History of appendectomy History of cholecystectomy History of coronary artery stent placement (01/17/10) History of left heart catheterization (07/05/10) History of left knee surgery S/P right knee surgery Social History household members: spouse Smoking Status: Never smoker alcohol intake: never ROS Constitutional Constitutional: Denies fever(s) or weight loss Eyes Eyes: Reports systems reviewed and no addt'l complaints, except as documented ENT HEENT: Reports systems reviewed and no addt'l complaints, except as documented Cardiovascular Cardiovascular: Reports dyspnea on exertion; Denies chest pain at rest, chest pain with activity, dyspnea at rest, edema, palpitations or paroxysmal nocturnal dyspnea Respiratory/Chest Respiratory/Chest: Reports shortness of breath with exertion; Denies dyspnea on exertion, productive cough or shortness of breath at rest Gastrointestinal Gastrointestinal: Denies change in bowel habits, nausea, vomiting or weight changes Genitourinary Genitourinary: Denies difficulty urinating Musculoskeletal Musculoskeletal: Denies joint stiffness or muscle weakness Integumentary Integumentary: Denies lesions Neurologic Neurologic: Denies dizziness or syncope Psychiatric Psychiatric: Denies anxiety Endocrine Endocrinology: Denies excessive sweating or fatigue Hematologic/Lymphatic Hematologic/Lymphatic: Denies anemia Allergic/Immunologic Allergic/Immunologic: Denies seasonal rhinorrhea Risk Stratification Risk Stratification Applicable: Yes Age >/= 65: Yes >/= 3 CAD Risk Factors (HTN, HLD, DM, family hx of CAD, or current smoker): Yes Aspirin Use in the Past 7 Days: Yes Severe Angina (>/= episodes in 24 hours): No EKG ST Changes >/= 0.5mm: No Positive Cardiac Marker: No MOUNA Risk Stratification Score: 3 MOUNA % Risk: 13% Risk Objective Data Vital Signs: Vital Signs Temp Pulse Resp BP Pulse Ox O2 Del Method 98.7 F 51 L 16 151/71 H 100 Room Air 06/21/23 15:00 06/21/23 15:00 06/21/23 15:00 06/21/23 15:00 06/21/23 15:00 06/21/23 18:16 Oxygen Delivery Method Room Air Weight: 138 lb 7.205 oz Body Mass Index (BMI) 24.5 Lab / Micro Data 06/21/23 09:52 06/21/23 09:52 Labs: Laboratory Results - last 24 hr 06/21/23 09:52: WBC 5.5, RBC 4.39, Hgb 13.1, Hct 40.1, MCV 91.3, MCH 29.8, MCHC 32.7, RDW Std Deviation 41.5, RDW Coeff of [place] 12.4, Plt Count 189, MPV 11.0, Immature Gran % (Auto) 0.400, Neut % (Auto) 60.2, Lymph % (Auto) 30.5, [place] % (Auto) 6.9, Eos % (Auto) 1.5, Baso % (Auto) 0.5, Absolute Neuts (auto) 3.3, Absolute Lymphs (auto) 1.68, Nucleated RBC % 0, D-Dimer Quant (PE/DVT) 1.84 H*, Sodium 139, Potassium 4.1, Chloride 107, Carbon Dioxide 28.0, Anion Gap 4 L, BUN 25 H, Creatinine 0.92, Estim Creat Clear Calc 43.03, Est GFR (MDRD) Af Amer 76, Est GFR (MDRD) Non-Af 63, BUN/Creatinine Ratio 27.1 H, Glucose 166 H, Calcium 8.9, Troponin I High Sens 13 06/21/23 12:58: Troponin I High Sens 17 06/21/23 15:07: Troponin I High Sens 15 Rhythm Strip Rhythm Strip: Sinus Rhythm Rate: 58 Ectopy: None Cardiology Labs/Tests 06/21/23 09:52: WBC 5.5, RBC 4.39, Hgb 13.1, Hct 40.1, MCV 91.3, MCH 29.8, MCHC 32.7, Plt Count 189, MPV 11.0, Immature Gran % (Auto) 0.400, Neut % (Auto) 60.2, Lymph % (Auto) 30.5, [place] % (Auto) 6.9, Eos % (Auto) 1.5, Baso % (Auto) 0.5, Absolute Neuts (auto) 3.3, Nucleated RBC % 0, D-Dimer Quant (PE/DVT) 1.84 H*, Sodium 139, Potassium 4.1, Chloride 107, Carbon Dioxide 28.0, Anion Gap 4 L, BUN 25 H, Creatinine 0.92, Est GFR (MDRD) Af Amer 76, Est GFR (MDRD) Non-Af 63, BUN/Creatinine Ratio 27.1 H, Glucose 166 H, Calcium 8.9 Rhythm: EKG: ECHO: Stress Test: Cardiac Cath: PCI: CT Surgery: Holter monitor: EPS: PPM: CXR: Chest CT Scan: Radiography Diagnostic Testing: Radiology Impression Chest X-Ray 06/21/23 09:39 IMPRESSION: Stable examination. No acute abnormality seen. Electronically Signed: Donovan Roche MD at 10:35 EDT , Chest CTA 06/21/23 10:28 IMPRESSION: No evidence of pulmonary embolism. Coronary artery calcification. Left renal cyst. Electronically Signed: Donovan Roche MD at 11:58 EDT ,
[2023-06-21 18:40] LABS: Troponin-I HS 17 pg/mL (3.0-54.0)
[2023-06-21] MEDS: amLODIPine 5 MG Tablet PO (21:49)
[2023-06-21] MEDS: Lisinopril 20 MG Tablet PO (21:49)
[2023-06-21] MEDS: Pravastatin 40 MG Tablet PO (21:50)
[2023-06-21] MEDS: Metoprolol(XL)Succ 25 MG Tablet PO (21:50)
[2023-06-22 04:12] VITALS: BP 109/68; PULSE 53; RESP 16; TEMP 35.9; O2SAT 95
[2023-06-22] MEDS: 0.9% Saline Lock 10 ML Syringe IV (04:21)
--- NOTE | 2023-06-22 08:09 | PCM.PN.CARD ---
Subjective Subjective Patient evaluated by phone. Objective Data Vital Signs: Vital Signs Temp Pulse Resp BP Pulse Ox O2 Del Method 96.6 F L 53 L 16 109/68 95 Room Air 06/22/23 04:12 06/22/23 04:12 06/22/23 04:12 06/22/23 04:12 06/22/23 04:12 06/22/23 04:58 Oxygen Delivery Method Room Air Weight: 138 lb 7.205 oz Body Mass Index (BMI) 24.5 Lab / Micro Data 06/21/23 09:52 06/21/23 09:52 Labs: Laboratory Results - last 24 hr 06/21/23 09:52: WBC 5.5, RBC 4.39, Hgb 13.1, Hct 40.1, MCV 91.3, MCH 29.8, MCHC 32.7, RDW Std Deviation 41.5, RDW Coeff of [place] 12.4, Plt Count 189, MPV 11.0, Immature Gran % (Auto) 0.400, Neut % (Auto) 60.2, Lymph % (Auto) 30.5, [place] % (Auto) 6.9, Eos % (Auto) 1.5, Baso % (Auto) 0.5, Absolute Neuts (auto) 3.3, Absolute Lymphs (auto) 1.68, Nucleated RBC % 0, D-Dimer Quant (PE/DVT) 1.84 H*, Sodium 139, Potassium 4.1, Chloride 107, Carbon Dioxide 28.0, Anion Gap 4 L, BUN 25 H, Creatinine 0.92, Estim Creat Clear Calc 43.03, Est GFR (MDRD) Af Amer 76, Est GFR (MDRD) Non-Af 63, BUN/Creatinine Ratio 27.1 H, Glucose 166 H, Calcium 8.9, Troponin I High Sens 13 06/21/23 12:58: Troponin I High Sens 17 06/21/23 15:07: Troponin I High Sens 15 06/21/23 18:07: Troponin I High Sens 17 Rhythm Strip Rhythm Strip: Sinus Rhythm Rate: 58 Ectopy: None Cardiology Labs/Tests 06/21/23 09:52: WBC 5.5, RBC 4.39, Hgb 13.1, Hct 40.1, MCV 91.3, MCH 29.8, MCHC 32.7, Plt Count 189, MPV 11.0, Immature Gran % (Auto) 0.400, Neut % (Auto) 60.2, Lymph % (Auto) 30.5, [place] % (Auto) 6.9, Eos % (Auto) 1.5, Baso % (Auto) 0.5, Absolute Neuts (auto) 3.3, Nucleated RBC % 0, D-Dimer Quant (PE/DVT) 1.84 H*, Sodium 139, Potassium 4.1, Chloride 107, Carbon Dioxide 28.0, Anion Gap 4 L, BUN 25 H, Creatinine 0.92, Est GFR (MDRD) Af Amer 76, Est GFR (MDRD) Non-Af 63, BUN/Creatinine Ratio 27.1 H, Glucose 166 H, Calcium 8.9 Rhythm: EKG: ECHO: Stress Test: Cardiac Cath: PCI: CT Surgery: Holter monitor: EPS: PPM: CXR: Chest CT Scan: Radiography Diagnostic Testing: Radiology Impression Chest X-Ray 06/21/23 09:39 IMPRESSION: Stable examination. No acute abnormality seen. Electronically Signed: Donovan Roche MD at 10:35 EDT , Chest CTA 06/21/23 10:28 IMPRESSION: No evidence of pulmonary embolism. Coronary artery calcification. Left renal cyst. Electronically Signed: Donovan Roche MD at 11:58 EDT , Assessment & Plan Assessment/Plan (1) Exertional dyspnea: PLAN: He presents with exertional dyspnea and currently is COVID-positive. Her cardiac enzymes are normal and there are no EKG changes. I did discuss with her over the phone and suggested to her that we should wait for at least 2 week post symptoms and then will see her and consider a cardiac catheterization. She is agreeable to the above approach. Her oxygenation apparently is stable at rest and if there are no change in her symptoms she may be discharged for outpatient follow-up and arrangement of the above. (2) Hx of CABG: PLAN: She is status post single-vessel coronary bypass surgery. She had a HOYT to the LAD I suspect this is still patent. We will evaluate this with a cardiac catheterization. Thank you for allowing me to participate in the care of your patient. Please don't hesitate to call if any issues arise.
[2023-06-22 10:02] VITALS: BP 119/60; PULSE 56; RESP 18; TEMP 36.3; O2SAT 96
[2023-06-22 10:04] VITALS: PULSE 62
[2023-06-22] MEDS: Cholecalciferol (Vit D3) 125 MCG CAPSULE (5,000 UNITS) PO (10:04)
[2023-06-22] MEDS: Isosorbide Mononitrate 30 MG Tablet PO (10:04)
[2023-06-22] MEDS: Lisinopril 20 MG Tablet PO (10:04)
[2023-06-22] MEDS: Enoxaparin 40 MG/0.4 ML Syringe SC (10:04)
[2023-06-22] MEDS: Aspirin E.C. 81 MG Tablet PO (10:04)
[2023-06-22] MEDS: Metoprolol(XL)Succ 25 MG Tablet PO (10:04)
[2023-06-22] MEDS: Pantoprazole Sodium 40 MG Tablet PO (10:04)
[2023-06-22] MEDS: amLODIPine 5 MG Tablet PO (10:04)
[2023-06-22] MEDS: Clopidogrel Bisulfate 75 MG Tablet PO (10:05)
--- NOTE | 2023-06-22 10:51 | DS.PCM_ITS ---
Providers Date of Admission: 06/21/23 Date of Discharge: 06/22/23 Primary Care Physician: Dr. Abelardo Mas, Consultations 06/21/23 14:41 Consult: Cardiology Routine Consulting Provider: Abel Weems Reason for Consult: angina EMERGENT Consult: No MD Notified: Yes Date Notified: 06/21/23 Time Notified: 14:27 Method of Notification: Verbal Reason For Visit: WORSENING ANGINA Diagnosis Discharge Diagnosis (1) Exertional dyspnea: Status: Acute Code(s): R06.09 - Other forms of dyspnea (2) Hx of CABG: Status: Acute Code(s): Z95.1 - Presence of aortocoronary bypass graft Plan #ANgina * patient has had worsening exertional shortness of breath and easy fatiguability * she has a history of CAD s/p CABG and stents * EKG showed T wave inversions in the lateral leads namely lead I and aVL, V5 and V6. * Troponins are negative. D-dimer was elevated at 1.[address] of the chest was negative for any evidence of PE. * Chest x-ray showed no acute cardiopulmonary process. Consult cardiology as she is high risk for CAD and so stress test even if negative will not be reassuring that she has underlying CAD. * Continue aspirin and Plavix as well as high intensity statin. * Also on metoprolol and lisinopril * #COVID-19 infection * Currently asymptomatic and on room air. Was diagnosed on 06/16/2023. * No need for steroids or remdesivir as she was on room air and stable. * #Type 2 diabetes mellitus: Appears to be diet controlled as she is not on any medication. Will monitor. #CAD s/p CABG and stents: On aspirin, Plavix and statin as above. Also on metoprolol and lisinopril. #DVT prophylaxis: Lovenox CODE STATUS: Full code * Patient, her husbandand daughter counseled extensively about different types of CODE STATUS including full code, DNR CCA and DNR CCA. Patient elects to be full code. * Total [id number] time 16 minutes. Medications at Discharge Home Medications [facility] 1 tab PO DAILY supplement 09/24/13 aspirin 81 mg tablet,delayed release (Adult Aspirin Regimen) 81 mg PO QDAY CAD 08/28/17 cholecalciferol (vitamin D3) 10 mcg (400 unit) capsule 5,000 unit PO DAILY supplement 09/19/18 clopidogrel 75 mg tablet 75 mg PO DAILY CAD #90 tabs 03/16/21 metoprolol succinate 25 mg tablet,extended release 24 hr 25 mg PO BID HTN #180 tabs 03/16/21 pantoprazole 40 mg tablet,delayed release (Protonix) 40 mg PO DAILY GERD #90 tabs 03/16/21 pravastatin 40 mg tablet 40 mg PO QHS CAD #90 tabs 03/16/21 amlodipine 5 mg tablet 5 mg PO BID HTN 04/16/23 lisinopril 20 mg tablet 20 mg PO BID htn #180 tabs 05/04/23 vibegron 75 mg tablet (Gemtesa) 75 mg PO DAILY overactive bladder 05/15/23 isosorbide mononitrate 30 mg tablet,extended release 24 hr 30 mg PO DAILY #30 tabs 06/22/23 Hospital Course Operations None Procedures None Summary of Care Provided Minutes Spent on Discharge: 45 Hospital Course: CAT STAFFORD, is a 77 F with a PMH as outlined who presents via the ED on 06/21/2023 with a complaint of shortness of breath which had been going on for about a month. She was recently diagnosed with covid, ~ 5 days prior to her coming in. She had been at home, but her shortness of breath has been worsening, and she got short of breath climbing up even one flight of steps.She denied any chest pain, palpitations, dizziness, nausea, vomiting or any other symptoms. REview of systems is otherwise negative. Vitals in the ED were temp of 97.1F, AR of 66, BP of 151/76, RR of 14 and she was saturating at 100% on room air. CBC was unremarkable. D dimer was 1.84. Chemistry was unremarkable and initial troponin was negative. CXR was stable. EKG showed st depression. CTA was ordered and pending. She was admitted to be managed for probable worsening angina and chest pain. Cardiology was consulted. Cardiology reviewed patient and determined that she will be followed up on outpatient basis for outpatient cardiac cath after her COVID had resolved. Patient remained stable and was discharged home on 06/22/2023. She is to follow- up with her primary care doctor and cardiology within 1 to 2 weeks. Patient seen and examined prior to discharge. She had no active complaints and had an uneventful night. Review of systems otherwise negative. Labs and vitals reviewed. Home medication reviewed and reconciled. Physical Exam Const alert, oriented x3, no apparent distress and well nourished General Appearance: cooperative, comfortable and well kempt HEENT normocephalic, head/scalp atraumatic, hearing grossly normal bilaterally and moist oral mucous membranes Mouth: oral and palatal mucosa normal Eyes PERRL and EOMs intact bilaterally Neck no lymphadenopathy, supple and no JVD Lymph Lymphatic: no lymphadenopathy noted and no lymphedema noted Resp normal respiratory effort, normal air movement, no use of accessory muscles and clear to auscultation bilaterally Cardio regular rate, regular rhythm, S1 normal heart sound, S2 normal heart sound and no murmurs GI normal to inspection, nondistended, normoactive bowel sounds, soft to palpation, non-tender and non-distended Extremity normal to inspection, full ROM, normal capillary refill, no clubbing, cyanosis or edema and no calf tenderness Skin no rashes or lesions noted, no wounds, skin turgor normal and no jaundice General Skin Exam: no breakdown Neuro oriented x3, CN's II-XII intact bilaterally, moves all extremities and no focal motor deficits Sensorium / Orientation: awake Motor Exam: strength 5/5 throughout and general weakness Psych thought process normal, cooperative and affect normal Appearance: appropriate Weight / BMI Weight Weight: 138 lb 7.205 oz Body Mass Index (BMI) 24.5 ABG / Lab / Microbiology Data 06/21/23 09:52 06/21/23 09:52 Laboratory: Laboratory Results - last 24 hr 06/21/23 12:58: Troponin I High Sens 17 06/21/23 15:07: Troponin I High Sens 15 06/21/23 18:07: Troponin I High Sens 17 Radiography Diagnostic Testing: Radiology Impression Chest CTA 06/21/23 10:28 IMPRESSION: No evidence of pulmonary embolism. Coronary artery calcification. Left renal cyst. Electronically Signed: Donovan Roche MD at 11:58 EDT , D/C Instructions Discharge Diet: Low fat / Low cholesterol Discharge Activity: Return to Normal Activity Weight Bearing Status: Weight bearing as tolerated Call your doctor if you observe: Fever of 101 or Higher, Shortness of breath, Dizziness, Swelling in the ankles and Chest pain Meaningful Use Info Meaningful Use Diagnoses (Choose all that apply): None applicable Discharge Plan Admission Admit Date/Time: 06/21/23 11:08 Primary Reason for Your Visit: angina Attending Provider: Muriel Chambers Primary Care Provider: Abelardo Mas Consulting Providers: Abel Weems Instructions Patient Instructions: Discharge Instructions for Angina Additional Instructions / Restrictions: Dr Weems's office will call patient to schedule the cardiac cath Discharge Orders/Prescriptions Prescriptions: New isosorbide mononitrate 30 mg Tablet Extended Release 24 Hr 30 mg PO DAILY Qty: 30 2RF Continued aspirin [Adult Aspirin Regimen] 81 mg tablet,delayed release (DR/EC) 81 mg PO QDAY cholecalciferol (vitamin D3) 400 unit capsule 5,000 unit PO DAILY Gemtesa 75 mg tablet 75 mg PO DAILY Patient Comments: TAKE 1 TABLET BY MOUTH EVERY DAY [employer] [facility] 1 tab PO DAILY pravastatin 40 mg tablet 40 mg PO QHS Qty: 90 4RF pantoprazole [Protonix] 40 mg tablet,delayed release (DR/EC) 40 mg PO DAILY Qty: 90 3RF metoprolol succinate 25 mg tablet extended release 24 hr 25 mg PO BID Qty: 180 4RF clopidogrel 75 mg tablet 75 mg PO DAILY Qty: 90 4RF amlodipine 5 mg tablet 5 mg PO BID lisinopril 20 mg tablet 20 mg PO BID Qty: 180 3RF Referrals / Follow Up: Abel Weems MD [Med Staff - Active Staff] - 07/06/23 7:30 am (This appt is for your outpatient Heart Cath. The office will call with instructions. ) Abelardo Mas DO [Primary Care Provider] - Within 2 Weeks Disposition Disposition (needs filled in before D/C Order can be placed): Home, Self Care Charges/Coding Visit Charges Inpatient E&M: 86352 Disch Hosp >30min
--- NOTE | 2023-06-22 11:30 | CASEMGMT ---
RN?CM?UNIVERSITY ADMINISTRATIVE ASSISTANT?CM?to room to meet with patient for initial transition planning/care coordination?assessment.?RN?CM?introduced self and role at [facility].? Pt voices understanding and consents to?assessment?at this time.? Pt resting in bed in no distress at this time.? Pt is A/O at this time and answers all questions appropriately.?? Care providers, pharmacy, and demographics verified/updated at this time. PCP: Dr Mas Specialists:WHMeghna/Cardiology, Dr Flores-urology Preferred Pharmacy: [facility]. Pt states she is switching to [facility], but states if any scripts have already been sent to [facility], then that is okay Insurance: [employer] MCR Prescription Benefit:?Yes Living Will/HPOA:?States has done LW and HCPOA, who is her , Manjit. Pt aware these are not on file @ [facility] and encouraged to bring in when she comes back to the hospital. LNOK: , Manjit. 3 adult children. One son and twin daughters Living Arrangements: Lives w/her in 2-story home w/2 steps to enter. Can do FFSU, if needed. Independent. Transportation:?Pt states drives self and states no transportation concerns at this time.? also drives. DME: ? Denies using any DME and denies needs.?She does have a pulse ox, but states it has not been working right. Encouraged to purchase another one and states she can afford this. HHC/SNF: No hx of either. Denies need for HHC and no needs identified. Pt wishes to return home and states has no concerns with going home at time of discharge.?Pt voices no further concerns/needs at this time.? PLAN:??Home Marisela BSN?RN?CM
--- NOTE | 2023-06-22 12:11 | PHA.DC.MC.R ---
Pharmacy [facility] Pharmacy Service has performed discharge medication reconciliation and counseling for this patient. The patient was counselled via telephone due to being in COVID precautions. All questions answered over the phone at this itme. The patient was counseled on the following discharge medications and changes in medications for homegoing were reviewed. 1. IMDUR The Reason for Use, instructions for use, and potential side effects were reviewed for all new medications. The patient's questions regarding all of their medications were answered. The patient was able to verbally demonstrate an understanding of their discharge medications. The patient's discharge medication list was reviewed for discrepancies and discrepancies were resolved. Medications at Discharge Home Medications [facility] 1 tab PO DAILY supplement 09/24/13 aspirin 81 mg tablet,delayed release (Adult Aspirin Regimen) 81 mg PO QDAY CAD 08/28/17 cholecalciferol (vitamin D3) 10 mcg (400 unit) capsule 5,000 unit PO DAILY supplement 09/19/18 clopidogrel 75 mg tablet 75 mg PO DAILY CAD #90 tabs 03/16/21 metoprolol succinate 25 mg tablet,extended release 24 hr 25 mg PO BID HTN #180 tabs 03/16/21 pantoprazole 40 mg tablet,delayed release (Protonix) 40 mg PO DAILY GERD #90 tabs 03/16/21 pravastatin 40 mg tablet 40 mg PO QHS CAD #90 tabs 03/16/21 amlodipine 5 mg tablet 5 mg PO BID HTN 04/16/23 lisinopril 20 mg tablet 20 mg PO BID htn #180 tabs 05/04/23 vibegron 75 mg tablet (Gemtesa) 75 mg PO DAILY overactive bladder 05/15/23 isosorbide mononitrate 30 mg tablet,extended release 24 hr 30 mg PO DAILY #30 tabs 06/22/23
== END 2023-06-22 12:53 | disposition home or self-care (01) | DRG 302 ==
LOC: ED 12:02 → PCU 06-22 09:39
PROVIDERS: Admitting Provider Student in an Organized Health Care Education/Training Program; Emergency Provider Emergency Medicine; PCP Family Medicine; Visit Provider Student in an Organized Health Care Education/Training Program
DX: I25.110 Atherosclerotic heart disease of native coronary artery with unstable angina pectoris (principal); E11.9 Type 2 diabetes mellitus without complications; U07.1 COVID-19; I10 Essential (primary) hypertension; Z79.02 Long term (current) use of antithrombotics/antiplatelets; Z95.1 Presence of aortocoronary bypass graft; Z95.5 Presence of coronary angioplasty implant and graft; Z79.82 Long term (current) use of aspirin; Z79.899 Other long term (current) drug therapy; Z86.16 Personal history of COVID-19; Z86.718 Personal history of other venous thrombosis and embolism; E78.5 Hyperlipidemia, unspecified; T50.905A Adverse effect of unspecified drugs, medicaments and biological substances, initial encounter; I95.9 Hypotension, unspecified
CPT/HCPCS: 36415; 71045; 71275; 80048; 80053; 82962; 84484; 85025; 85379; 93005; 96360; 96372; 99221; 99283; 99285; J7030; Q9967; A4216; G0378

== ENCOUNTER 2023-06-22 13:37 | Emergency (ER) | payer MEDICARE, SELFPAY ==
[2023-06-22 13:38] VITALS: BP 77/46; PULSE 70; RESP 18; TEMP 35.8; O2SAT 93
--- NOTE | 2023-06-22 13:45 | EKG12_ITS ---
Test Reason : HYPOTENSION Blood Pressure : / mmHG Vent. Rate : 056 BPM Atrial Rate : 056 BPM P-R Int : 158 ms QRS Dur : 092 ms QT Int : 468 ms P-R-T Axes : -23 002 145 degrees QTc Int : 451 ms Sinus bradycardia Septal infarct , age undetermined ST & T wave abnormality, consider anterolateral ischemia Abnormal ECG Confirmed by CHRYSTAL FONTANEZ, JAYLEEN ([id number]), editor in chief POLI REID ([id number]) on 06/26/2023 11:55:08 AM Referred By: Confirmed By:JAYLEEN JARRELL MD
[2023-06-22 14:03] VITALS: BP 109/57; PULSE 52; RESP 16; O2SAT 94
--- NOTE | 2023-06-22 14:10 | EDS_ITS ---
HPI History of Present Illness Chief Complaint: Nausea/Vomiting Detail of Chief Complaint: Nausea and dizziness Informant: patient and spouse/S.O. Narrative Narrative: Patient presents to the emergency department complaint of nausea and feeling dizzy. Patient states that she was on her way home riding in the vehicle after being discharged from our hospital around 1 PM today. Patient began feeling acutely dizzy and nauseated. They return for evaluation. Patient apparently was admitted for dyspnea and has COVID with patient being day 7 of symptoms. She apparently was started on a new blood pressure medicine while in the hospital. She is scheduled to have a heart cath in 2 weeks. Patient denies any chest pain currently. Denies nausea currently. Initial blood pressure on arrival to the emergency department per nursing staff was 77 systolic. [facility] Medical History Atherosclerotic heart disease of [place] coronary artery without angina pectoris Diabetes mellitus, type II Essential (primary) hypertension Hyperlipidemia Nonrheumatic aortic (valve) stenosis Urinary tract infection Home Medications [facility] 1 tab PO DAILY supplement 09/24/13 [History Last Taken 06/21/23] aspirin 81 mg tablet,delayed release (Adult Aspirin Regimen) 81 mg PO QDAY CAD 08/28/17 [History Last Taken 06/21/23] cholecalciferol (vitamin D3) 10 mcg (400 unit) capsule 5,000 unit PO DAILY supplement 09/19/18 [History Last Taken 06/21/23] clopidogrel 75 mg tablet 75 mg PO DAILY CAD #90 tabs 03/16/21 [Rx Last Taken 06/21/23] metoprolol succinate 25 mg tablet,extended release 24 hr 25 mg PO BID HTN #180 tabs 03/16/21 [Rx Last Taken 06/21/23] pantoprazole 40 mg tablet,delayed release (Protonix) 40 mg PO DAILY GERD #90 tabs 03/16/21 [Rx Last Taken 06/21/23] pravastatin 40 mg tablet 40 mg PO QHS CAD #90 tabs 03/16/21 [Rx Last Taken 06/20/23] amlodipine 5 mg tablet 5 mg PO BID HTN 04/16/23 [History Last Taken 06/21/23] lisinopril 20 mg tablet 20 mg PO BID htn #180 tabs 05/04/23 [Rx Last Taken 06/21/23] vibegron 75 mg tablet (Gemtesa) 75 mg PO DAILY overactive bladder 05/15/23 [History Last Taken 06/21/23] isosorbide mononitrate 30 mg tablet,extended release 24 hr 30 mg PO DAILY #30 tabs 06/22/23 [Rx Last Taken Unknown] Allergy/AdvReac Type Severity Reaction Status Date / Time codeine Allergy Anaphylaxis Verified 06/22/23 13:38 Sulfa (Sulfonamide Allergy Anaphylaxis Verified 06/22/23 13:38 Antibiotics) Family History Father CAD (coronary artery disease) Mother Atrial fibrillation Cancer Sister Atrial fibrillation Hypertension Father Colon cancer Surgical History H/O coronary artery bypass surgery (01/14/10) History of appendectomy History of cholecystectomy History of coronary artery stent placement (01/17/10) History of left heart catheterization (07/05/10) History of left knee surgery S/P right knee surgery Social History household members: spouse Smoking Status: Never smoker alcohol intake: never ROS ROS ED Review of Systems ROS Unobtainable: other Constitutional Constitutional ED: Reports lethargy; Denies chills, fever(s), sweats or weight loss Eyes Eyes: Denies blurry vision, change in vision or diplopia ENT ENT ED: Denies rhinorrhea or sore throat Cardiovascular Cardiovascular: Denies chest pain, orthopnea or racing heartbeat Respiratory/Chest Respiratory/Chest: Reports dyspnea and dyspnea on exertion; Denies cough, orthopnea or sputum Gastrointestinal Gastrointestinal: Denies abdominal pain, diarrhea, nausea or vomiting Genitourinary Genitourinary ED: Denies dysuria, hematuria or urinary frequency Musculoskeletal Musculoskeletal: Denies arthralgias, back pain, myalgias or neck pain Integumentary Denies abscess, Abrasions or rash Neurologic Neurologic: Reports weakness; Denies headache(s) Psychiatric Psychiatric: Denies anxiety, depression or suicidal thoughts Endocrine Endocrinology: Denies polydipsia, polyphagia or polyuria Hematologic/Lymphatic Hematologic/Lymphatic: Denies easy bleeding, easy bruising or lymphadenopathy Allergic/Immunologic Allergic/Immunologic ED: Denies mouth swelling, tongue swelling or urticaria EXAM Physical Exam Const Vital Signs: 06/22/23 13:38 06/22/23 13:37 06/22/23 14:03 Temperature 96.5 F L Temperature Source Temporal Pulse Rate 70 52 L Pulse Rate [Lying] Pulse Rate [Sitting (for 1 minute prior to obtaining)] Pulse Rate [Standing (for 1 minute prior to obtaining)] Respiratory Rate 18 16 Blood Pressure 77/46 L 109/57 L Blood Pressure [Lying] Blood Pressure [Sitting (for 1 minute prior to obtaining)] Blood Pressure [Standing (for 1 minute prior to obtaining)] Blood Pressure Mean 56 74 Blood Pressure Mean [Lying] Blood Pressure Mean [Sitting (for 1 minute prior to obtaining)] Blood Pressure Mean [Standing (for 1 minute prior to obtaining)] Pulse Ox 93 94 Oxygen Delivery Method Room Air Room Air Room Air 06/22/23 14:09 06/22/23 15:03 06/22/23 15:41 Temperature Temperature Source Pulse Rate 58 L Pulse Rate [Lying] 55 L Pulse Rate [Sitting (for 1 minute prior to obtaining)] 59 L Pulse Rate [Standing (for 1 minute prior to obtaining)] 65 Respiratory Rate 16 Blood Pressure 98/59 L Blood Pressure [Lying] 98/58 L Blood Pressure [Sitting (for 1 minute prior to obtaining)] 113/58 L Blood Pressure [Standing (for 1 minute prior to obtaining)] 116/63 Blood Pressure Mean 72 Blood Pressure Mean [Lying] 71 Blood Pressure Mean [Sitting (for 1 minute prior to obtaining)] 76 Blood Pressure Mean [Standing (for 1 minute prior to obtaining)] 80 Pulse Ox 98 Oxygen Delivery Method Room Air Room Air 06/22/23 16:00 06/22/23 16:31 Temperature Temperature Source Pulse Rate 57 L 64 Pulse Rate [Lying] Pulse Rate [Sitting (for 1 minute prior to obtaining)] Pulse Rate [Standing (for 1 minute prior to obtaining)] Respiratory Rate 14 16 Blood Pressure 104/64 103/54 L Blood Pressure [Lying] Blood Pressure [Sitting (for 1 minute prior to obtaining)] Blood Pressure [Standing (for 1 minute prior to obtaining)] Blood Pressure Mean 77 70 Blood Pressure Mean [Lying] Blood Pressure Mean [Sitting (for 1 minute prior to obtaining)] Blood Pressure Mean [Standing (for 1 minute prior to obtaining)] Pulse Ox 98 Oxygen Delivery Method Room Air Positive well nourished and well developed General Appearance ED: well developed and NAD HEENT Reports TM's clear and moist mucous membranes normocephalic and atraumatic; Negative for trauma or tenderness Tympanic Membrane ED: Yes TM's clear Eyes PERRL and EOMs intact bilaterally General Eye ED: Negative for pale conjunctiva or scleral icterus Neck no lymphadenopathy, supple and no JVD General: Negative for tenderness Chest Wall inspection of chest normal and palpation of chest normal Chest: Negative for tenderness Resp normal respiratory effort and clear to auscultation bilaterally Effort and Inspection: Negative for respiratory distress or pain with movement Auscultation: Negative for rhonchi, wheezes or diminished lung sounds Cardio regular rate, regular rhythm, S1 normal heart sound, S2 normal heart sound and no murmurs Peripheral Pulses: pulses 2+ throughout GI normal to inspection, nondistended, normoactive bowel sounds, soft to palpation, non-tender, non-distended and no masses Back/Spine no CVA tenderness and no thoracic nor lumbar tenderness Extremity normal to inspection General Extremety ED: Negative for edema General Extremity: Negative for edema Neuro oriented x3, CN's II-XII intact bilaterally, no sensory deficits noted and gait normal Sensorium / Orientation: awake, alert, oriented to person, oriented to place and oriented to time Motor Exam: strength 5/5 throughout and strength abnormal Psych mental status grossly normal Skin no rashes or lesions noted and no wounds MDM MDM MDM Narrative Medical decision making narrative: Patient presents with hypertension after being discharged from the hospital and receiving isosorbide. IV line established. Patient was given a liter of the same fluid bolus. Basic labs were ordered. CBC with white count 6.7 with hemoglobin 13 and platelet count of 232. Chemistries unremarkable. EKG obtained showed a sinus rhythm with a ventricular rate of [address] changes with T wave inversions when compared with prior EKG from June 21 at 10 AM these are unchanged. Patient had a normal troponin. Chemistries unremarkable. After liter fluid bolus orthostatic vital signs were negative and she is feeling back to her baseline. Discussed case with [facility] sawyer who recommended discontinuing the isosorbide and patient can follow-up with his office as instructed as she is will be scheduled to have a heart cath within the next 2 weeks. Patient advised to return if persistent dizziness, hypotension, syncope, chest pain, or condition worsen anyway. I feel her hypotension likely related to the isosorbide. Lab Data Attestation: I reviewed the patient's lab results. Labs: Laboratory Results - last 24 hr 06/22/23 14:00 WBC 6.7 RBC 4.31 Hgb 13.0 Hct 39.0 MCV 90.5 MCH 30.2 MCHC 33.3 RDW Std Deviation 41.0 RDW Coeff of [place] 12.4 Plt Count 232 MPV 10.6 Immature Gran % (Auto) 0.600 Neut % (Auto) 46.2 L Lymph % (Auto) 44.8 H [place] % (Auto) 6.4 Eos % (Auto) 1.6 Baso % (Auto) 0.4 Absolute Neuts (auto) 3.1 Absolute Lymphs (auto) 3.00 Nucleated RBC % 0 Sodium 139 Potassium 3.9 Chloride 106 Carbon Dioxide 29.0 Anion Gap 4 L BUN 28 H Creatinine 1.10 H Est GFR (MDRD) Af Amer 62 Est GFR (MDRD) Non-Af 51 L BUN/Creatinine Ratio 25.5 H Glucose 145 H Calcium 8.7 Total Bilirubin 0.30 AST 18 ALT 22 Alkaline Phosphatase 49 Troponin I High Sens 12 Total Protein 6.6 Albumin 3.2 Globulin 3.4 Albumin/Globulin Ratio 0.9 Radiography Diagnostic Testing: Clinical Impression(s) from Imaging Studies Chest X-Ray 06/22/23 14:17 IMPRESSION: No acute amount is seen. Stable examination. Electronically Signed: Donovan Roche MD at 14:38 EDT , Chest x-ray obtained interpreted by myself as no evidence of infiltrate or pneumothorax or acute process. Radiology in agreement. EKG Initial EKG: Attestation: I personally reviewed and interpreted this EKG as follows: Comments: Sinus rhythm with a rate of [address] changes Prior EKG tracings: available for review Prior: Unchanged Discharge Plan Triage Chief Complaint: Nausea/Vomiting ED Provider: Tegan Fonseca Dx/Rx/DC Orders Clinical Impression: Drug side effects, Acute hypotension Instructions: Hypotension Dc, ED Low Blood Pressure, All Causes Prescriptions: No Action aspirin [Adult Aspirin Regimen] 81 mg tablet,delayed release (DR/EC) 81 mg PO QDAY cholecalciferol (vitamin D3) 400 unit capsule 5,000 unit PO DAILY Gemtesa 75 mg tablet 75 mg PO DAILY Patient Comments: TAKE 1 TABLET BY MOUTH EVERY DAY [facility] 1 tab PO DAILY isosorbide mononitrate 30 mg Tablet Extended Release 24 Hr 30 mg PO DAILY Qty: 30 2RF pravastatin 40 mg tablet 40 mg PO QHS Qty: 90 4RF pantoprazole [Protonix] 40 mg tablet,delayed release (DR/EC) 40 mg PO DAILY Qty: 90 3RF metoprolol succinate 25 mg tablet extended release 24 hr 25 mg PO BID Qty: 180 4RF clopidogrel 75 mg tablet 75 mg PO DAILY Qty: 90 4RF amlodipine 5 mg tablet 5 mg PO BID lisinopril 20 mg tablet 20 mg PO BID Qty: 180 3RF Primary Care Provider: Abelardo Mas Referrals: Abelardo Mas DO [Primary Care Provider] - Activity Restrictions/Additional Instructions: Do not take the isosorbide medication Disposition Disposition: Home, Self Care Discharge Date/Time: 06/22/23 16:36
[2023-06-22] MEDS: 0.9% Normal Saline (1000mL) 1,000 ML 1000 ML IV (14:17)
--- NOTE | 2023-06-22 14:17 | RAD_ITS ---
STUDY: X-RAY CHEST REASON FOR EXAM: Female, 77 years old. Dyspnea TECHNIQUE: Single AP portable view of the chest. COMPARISON: Comparison is made with prior study June 21, 2023. FINDINGS: EKG electrodes are seen. The lungs are clear and expanded. There is no demonstrated pleural abnormality. Sternal cerclage wires and vascular clips are present from a prior sternotomy and coronary artery bypass graft procedure (CABG). Normal mediastinum and jimbo. Normal visualized pulmonary arteries. There is atherosclerotic calcification of the aortic arch with tortuosity. Normal visualized thoracic spine. Normal visualized ribs, clavicles, and shoulders. There is no demonstrated abnormality of the visualized soft tissue structures of the upper abdomen. RAD/Chest 1 View (Portable) IMPRESSION: No acute amount is seen. Stable examination. Electronically Signed: Donovan Roche MD at 14:38 EDT ,
[2023-06-22 14:28] LABS: Absolute Neutrophil Count 3.1 X10^3/uL (2.0-7.7); Basophil# 0.03 X10^3/uL; Basophil% 0.4 % (0-1); Eosinophil# 0.11 X10^3/uL; Eosinophils% 1.6 % (0-5); Lymphocyte % 44.8 % (19-41); Mean Corp Hgb Conc 33.3 g/dL (32-36); Mean Corpuscular Hgb 30.2 pg (27.0-32.0); Mean Corpuscular Volume 90.5 fL (81-99); Mean Platelet Vol. 10.6 fl (6.2-12.0); Monocyte# 0.43 X10^3/uL; Monocyte% 6.4 % (0-10); NRBC Flagged by Analyzer 0 % (0-5); Neutrophil # 3.09 X10^3/uL (2.7-7.7); Neutrophil % 46.2 % (47-70); Platelet Count 232 K/mm3 (150-450); RBC Distribution Width CV 12.4 % (11.6-14.6); Red Blood Count 4.31 M/mm3 (4.2-5.4); White Blood Count 6.7 K/mm3 (4.4-11.0)
[2023-06-22 14:51] LABS: ALB/GLOB Ratio 0.9 RATIO (0.9-2.4); AST(SGOT) 18 U/L (15-37); Alanine Aminotransfer ALT/SGPT 22 U/L (13-56); Albumin, Serum 3.2 g/dL (3.2-5.0); Alkaline Phosphatase 49 U/L (45-117); Anion Gap 4 (5-15); BUN 28 mg/dL (7-18); BUN/Creat Ratio 25.5 RATIO (10-20); Calcium,Total 8.7 mg/dL (8.5-10.1); Chloride 106 mmol/L (98-107); EST Glomerular Filtration Rate 51 mL/min (>60); Est Glom Filt Rate - Afr Amer 62 mL/min (>60); Globulin 3.4 g/dL (2.2-4.2); Glucose 145 mg/dL (74-106); Potassium 3.9 mmol/L (3.5-5.1); Protein, Total 6.6 g/dL (6.4-8.2); Sodium Level 139 mmol/L (136-145); Troponin-I HS 12 pg/mL (3.0-54.0)
[2023-06-22 15:03] VITALS: BP 98/59; PULSE 58; RESP 16; O2SAT 98
[2023-06-22 15:41] VITALS: BP 113/58; BP 116/63; BP 98/58; PULSE 55; PULSE 59; PULSE 65
[2023-06-22 16:00] VITALS: BP 104/64; PULSE 57; RESP 14; O2SAT 98
[2023-06-22 16:31] VITALS: BP 103/54; PULSE 64; RESP 16
[2023-06-27 02:02] LABS: Bedside Glucose 156 mg/dL (74-106)
== END 2023-06-22 16:36 | disposition home or self-care (01) ==
PROVIDERS: Emergency Provider Emergency Medicine; PCP Family Medicine; Visit Provider Emergency Medicine
DX: T50.905A Adverse effect of unspecified drugs, medicaments and biological substances, initial encounter (principal); I95.9 Hypotension, unspecified; I25.10 Atherosclerotic heart disease of native coronary artery without angina pectoris; Z95.5 Presence of coronary angioplasty implant and graft; Z95.1 Presence of aortocoronary bypass graft
CPT/HCPCS: 71045; 80048; 80053; 82962; 84484; 85025; 93005; 96360; 99285; J7030; A4216

== ENCOUNTER 2023-07-06 07:26 | Day surgery (SDC) | payer MEDICARE, SELFPAY ==
[2023-07-05 08:20] VITALS: BMI 24.4
--- NOTE | 2023-07-06 09:21 | CL.D_ITS ---
Patient Name: CAT STAFFORD Study Date: 07/06/2023 Performing: Abel Weems MD Ht: 63 inches 160.02 cm : 1945 Wt: 138.01 lbs 62.6 kg Age: 77 Gender: female BSA: 1.65 PROCEDURE(S) PERFORMED DC03-(35647)LHC/COR/LV/CABG CLINICAL PROFILE AND INDICATIONS Indications: Suspected CAD Heart Failure: None Stress/Imaging Stress/Image Study Performed: No CAD Presentations: Unstable angina. CONCLUSIONS Patent HOYT to the LAD severe disease of the mid LAD high-grade stenosis of the mid left circumflex artery and mild disease of the right coronary artery. RECOMMENDATIONS Referred for immediate PCI DESCRIPTION OF PROCEDURE The patient arrived to the procedure lab. The risks and benefits of the procedure as well as a full description of our services here and current unavailability of surgical backup were fully explained to the patient and/or their significant other prior to the catheterization. The Timeout was completed, verifying the correct patient and procedure. The patient's procedural site was prepped and draped in the usual fashion. Local anesthetic was given subcutaneously to left radial region with Lidocaine 2%. Using a modified Seldinger technique, arterial access was obtained via the left radial artery, a 6Fr sheath was inserted. Left internal mammary artery graft to the LAD selective angiography was performed in multiple views using a 5 Fr. IM catheter. Left Coronary Artery selective angiography was performed in multiple views using a 5 Fr. JL3.5 catheter. Right Coronary Artery selective angiography was then performed in multiple views using a 5 Fr. 3DRC (Shawn) catheter. Right Coronary Artery selective angiography was then performed in multiple views using a 5 Fr. JR 5 catheter. Left Ventriculography was performed in COUCH projection using a 5 Fr. Pigtail catheter. LV to AO pullback pressures were then recorded. CORONARY ANGIOGRAPHY DOMINANCE: Right Dominant LEFT HEART ASSESSMENT Left Ventricular Ejection Fraction: by LV Gram 65 % Normal LV wall motion Normal Left Ventricular systolic function LEFT MAIN: Mild calcification, Mild luminal irregularities LEFT ANTERIOR DESCENDING ARTERY: Severely diseased in the mid left anterior descending artery with a long significant stenosis CIRCUMFLEX ARTERY: Severe disease noted in the mid circumflex artery in the previously placed stent of 95% with the first obtuse marginal branch being patent in the distant circumflex artery being mildly diseased. RIGHT CORONARY ARTERY: Moderate luminal irregularities up to 50% Moderate calcification GRAFTS: HOYT graft to the Mid LAD is patent COMPLICATIONS PROCEDURE MEDICATIONS Fentanyl 50 mcg IV Versed 1 mg IV Versed 1 mg IV Versed 1 mg IV Oxygen: 2 L/min via nasal cannula Heparin given IA 07/06/2023 08:38:43 Verapamil 2.5mg, 3000 units of Heparin given IA 07/06/2023 08:38:43 SUMMARY OF HEMODYNAMIC DATA Time AIR REST ECG 07:50:15 AO 174/77 (114) SA 08:45:42 LV 206/12, 29 09:05:42 LV 201/15, 27 09:05:51 LV 198/16, 32 09:06:28 LVp 200/18, 29 09:06:36 AOp 194/80 (125) 09:06:43 Signed By Abel Weems MD On 07/06/2023 09:20:37 Abel Weems MD
--- NOTE | 2023-07-06 11:59 | CL.I_ITS ---
Patient Name: CAT STAFFORD Study Date: 07/06/2023 Performing: Marlene Thompson MD Ht: 63 inches 160.02 cm : 1945 Wt: 138.01 lbs 62.6 kg Age: 77 Gender: female BSA: 1.65 PROCEDURE(S) PERFORMED IC12-(87702/C9600)JUMA W/WO PTCA, SINGLE CORONARY ARTERY CLINICAL PROFILE AND CO-MORBIDITIES Indications: Suspected CAD Heart Failure: None Stress/Imaging Stress/Image Study Performed: No CAD Presentations: Unstable angina. CONCLUSIONS Successful JUMA to mLCx RECOMMENDATIONS DESCRIPTION OF PROCEDURE The patient arrived to the procedure lab. The risks and benefits of the procedure as well as a full description of our services here and current unavailability of surgical backup were fully explained to the patient and/or their significant other prior to the catheterization. The Timeout was completed, verifying the correct patient and procedure. The patient's procedural site was prepped and draped in the usual fashion. Local anesthetic was given subcutaneously to left radial region with Lidocaine 2% Using a modified Seldinger technique,arterial access was obtained via the left radial artery, a 6Fr sheath was inserted. Left internal mammary artery graft to the LAD selective angiography was performed in multiple views using a 5 Fr. IM catheter. Left Coronary Artery selective angiography was performed in multiple views using a 5 Fr. JL3.5 catheter. Right Coronary Artery selective angiography was then performed in multiple views using a 5 Fr. 3DRC (Shawn) catheter. Right Coronary Artery selective angiography was then performed in multiple views using a 5 Fr. JR 5 catheter. Left Ventriculography was performed in COUCH projection using a 5 Fr. Pigtail catheter. LV to AO pullback pressures were then recorded.The images were reviewed and options discussed. A decision was then made to proceed with an Intervention, IVUS or other adjunct procedure. XB 3.0 Guide catheter was inserted and engaged into the LCA. BMW Guide wire was advanced to the Circumflex. 3.0 x 12 Emerge Balloon catheter was inserted. Balloon catheter was advanced across lesion in the circumflex, mid. PTCA balloon inflated at 8 atms for 23 secs. PTCA balloon inflated at 10 atms for 22 secs. PTCA balloon inflated at 10 atms for 26 secs. PTCA balloon inflated at 10 atms for 8 secs. Angiogram performed post balloon dilatation. 3.0 x 12 [place] Drug Eluting stent was inserted. Drug Eluting stent was advanced across the lesion in the circumflex, mid. Drug Eluting stent was removed intact, failed to cross lesion Runthrough Guide wire was inserted as a silas wire 3.0 x 12 [place] Drug Eluting stent was advanced across the lesion in the circumflex, mid. Angiogram performed post stent deployment. The arterial sheath was pulled and a TR Band was applied for hemostasis. 10cc air inserted. INTERVENTION INFORMATION LESION SITE: Circumflex (Mid) Lesion Complexity: High/C, chronic total occlusion: No, lesion at bifurcation: No, thrombus present: No, lesion length: 12 mm, culprit lesion: Yes, Previously treated lesion: Yes, In-stent restenosis: Yes, Timeframe of previous treatment: Time unknown, In-stent Thrombosis: No, Previously treated with a stent: Yes Stent Type: with stent type unknown Pre Stenosis: 90 % Pre intervention MOUNA flow: 3 PROCEDURE: Drug Eluting Stent with pre dilatation. Post Stenosis: 0 % Post intervention MOUNA flow: 3 Lesion Devices: Matos .014 190cm BMW [place] Straight Cordis 6 Fr XB3.0 100cm Guide Catheter Isidro Sci EMERGE MR 3.00x12 BALLOON Medtronic 3.0 x 12 OSCAR FRONTIER JUMA COMPLICATIONS No Complications PROCEDURE MEDICATIONS Fentanyl 50 mcg IV Versed 1 mg IV Versed 1 mg IV Versed 1 mg IV Oxygen: 2 L/min via nasal cannula Heparin given IA 07/06/2023 08:38:43 Heparin 4000 unit(s) IV 07/06/2023 10:27:44 Verapamil 2.5mg, 3000 units of Heparin given IA 07/06/2023 08:38:43 IV Fluids: .9 NaCl IV started @ 125 ml/hr 07/06/2023 11:35:12 SUMMARY OF HEMODYNAMIC DATA Time AIR REST ECG 07:50:15 AO 174/77 (114) SA 08:45:42 LV 206/12, 29 09:05:42 LV 201/15, 27 09:05:51 LV 198/16, 32 09:06:28 LVp 200/18, 29 09:06:36 AOp 194/80 (125) 09:06:43 AIR REST 11:28:24 Signed By Marlene Thompson MD On 07/06/2023 11:58:23 Marlene Thompson MD
--- NOTE | 2023-07-06 14:55 | CRPHASE1_ITS ---
Patient Communication Patient Information Former Patient:: Phase I PHII Cardiac Rehab Discussed with Patient:: Yes Guide to Cardiac Rehab Given to Patient:: Yes Cardiac Rehab Facility Choice List Given to Patient:: Yes Communication to Cardiac Rehab Choice Program [facility] CR PHII:: Communication Given to CR Radiographer Technologist:: Zoltan Thompson Refer Phase II Cardiac Rehab:: Yes Cardiac Rehabilitation Info Program Information Cardiac Rehabilitation Program Information: Cardiac Rehab The cardiac rehab team at [facility] consists of highly skilled exercise physiologists, nurses, respiratory therapists and physicians working together with you. Our purpose is to help you have a full recovery and achieve the goals you set for yourself. Over the years many of our patients have returned to activities they assumed they would never do again! We can help restore your confidence and motivation to make lifestyle changes that can have a significant impact on your health and quality of life! We can help answer questions and concerns you may have about exercise, lifestyle, medications, diet, stress and anxiety which are common following a hospitalization. WE monitor ECG and vital signs during exercise and discuss your progress with you and report to your physician(s). Cardiac Rehab is proven to help reduce readmissions, improve functional capacity and lower recurrence of problems with your heart. Our Cardiac Rehab program is Certified by the [place] [employer]Vascular and Pulmonary [employer] (AACVPR) and Accredited by the [place] [employer] through our [facility]. You can contact us at . We invite you to call us with your questions or to get started in our program. If you have other questions or concerns be sure to ask your physician/provider during your follow-up visit. WE look forward to seeing you!
--- NOTE | 2023-07-06 14:55 | CRPH1.INSTRU ---
General Education Discussed with Patient CAD and cardiac anatomy and function:: Patient communicates acknowledgment Explanation of diagnoses and procedures:: Patient communicates acknowledgment Sign/Symptoms of [place]:: Patient communicates acknowledgment Antiplatelet therapy: Patient communicates acknowledgment Proper use of NTG-SL: Patient communicates acknowledgment Emergency procedures and activation of EMS: Patient communicates acknowledgment Compliance of all prescribed medications: Patient communicates acknowledgment Dyslipidemia Risk Factors Patient Dyslipidemia Risk Factors Are:: Total Cholesterol Recommendations Recommendations Include:: Lipid profile provided Response Code Dyslipidemia Response Code:: Patient communicates acknowledgment Hypertension Recommendations Recommendations Include:: BP <130/80 if diabetic Response Code Hypertension:: Patient communicates acknowledgment Heart Disease Risk Factors Patient Heart Disease Risk Factors Are:: Family history of heart disease < 65 years old and Previous cardiac event Recommendations Recommendations Include:: Educated family members of their risk Response Code Heart Disease Response Code:: Patient communicates acknowledgment Diabetes Risk Factors Patient Diabetes Risk Factors Are:: Elevated blood sugars Recommendations Recommendations Include:: Maintain fasting blood sugars 70-110 md/dL, Maintain HgbA1c of 6% or less, Monitor blood sugar as prescribed, Diabetic dietary guidelines and Decrease/maintain body weight Response Code Diabetes:: Patient communicates acknowledgment Sedentary Risk Factors Patient Sedentary Risk Factors Are:: Lack of regular exercise Recommendations Recommendations Include:: Aerobic exercise 5-7 times/week for 20-30 minutes continuously, Benefits of regular exercise, Discussed home walking program and Monitored Outpatient Cardiac Rehab Response Code Sedentary Response Code:: Patient communicates acknowledgment
== END 2023-07-06 15:25 | disposition home or self-care (01) ==
PROVIDERS: PCP Family Medicine; Referring Provider Internal Medicine Cardiovascular Disease; Visit Provider Internal Medicine Cardiovascular Disease
DX: I25.110 Atherosclerotic heart disease of native coronary artery with unstable angina pectoris (principal); I10 Essential (primary) hypertension; E78.5 Hyperlipidemia, unspecified; Z79.82 Long term (current) use of aspirin; Z79.899 Other long term (current) drug therapy; Z86.16 Personal history of COVID-19; Z95.1 Presence of aortocoronary bypass graft; Z95.5 Presence of coronary angioplasty implant and graft
CPT/HCPCS: 92928; 93005; 93459; 99152; 99153; C1894; J7040; Q9967; C1769; C1887; C9600

== ENCOUNTER → 2023-07-13 | Outpatient (CLI) | payer MEDICARE, SELFPAY ==
--- NOTE | 2023-07-13 08:07 | PCM.CR.HP2 ---
CR - History & Physical General Arrival date:: 07/13/23 Arrival time:: 08:07 Date of Referral:: 07/11/23 Date of CR Evaluation:: 07/13/23 Referring Physician: Dr. Abel Weems Primary Diagnosis: PCI with coronary stent History of Present Cardiac Event Onset Date PTCA or coronary stenting:: Yes (07/06/23) Medications Ambulatory Orders Medication Instructions Recorded Ultra Health Womens 1 tab PO DAILY supplement 09/24/13 aspirin 81 mg tablet,delayed 81 mg PO QDAY CAD 08/28/17 release (Adult Aspirin Regimen) cholecalciferol (vitamin D3) 10 5,000 unit PO DAILY supplement 09/19/18 mcg (400 unit) capsule clopidogrel 75 mg tablet 75 mg PO DAILY CAD #90 tabs 03/16/21 metoprolol succinate 25 mg 25 mg PO BID HTN #180 tabs 03/16/21 tablet,extended release 24 hr pantoprazole 40 mg tablet,delayed 40 mg PO DAILY GERD #90 tabs 03/16/21 release (Protonix) pravastatin 40 mg tablet 40 mg PO QHS CAD #90 tabs 03/16/21 amlodipine 5 mg tablet 5 mg PO BID HTN 04/16/23 lisinopril 20 mg tablet 20 mg PO BID htn #180 tabs 05/04/23 vibegron 75 mg tablet (Gemtesa) 75 mg PO DAILY overactive bladder 05/15/23 isosorbide mononitrate 30 mg 30 mg PO DAILY #30 tabs 06/22/23 tablet,extended release 24 hr Allergies Allergies codeine Allergy (Verified 06/22/23 13:38) Anaphylaxis Sulfa (Sulfonamide Antibiotics) Allergy (Verified 06/22/23 13:38) Anaphylaxis Sleep Disorder Evaluation Hx of Sleep Apnea: No Do you snore loudly (louder than talking or can be heard through closed doors)?: No Do you often feel tired/ fatigued/ sleepy during daytime?: No Has anyone observed you stop breathing during sleep?: No History of Hypertension (for STOP score): Yes STOP Results: Negative Advanced Directives Advanced Directives 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 Living Will: Yes Advance Directives Information Provided: Yes Advance Directives on File: No DNR Order?:: No Past Medical History Covid-19 Screening Physicial Symptoms Other Clinical Concerns Exposure Risk Pertinent Comorbidities 65 years or older:: Yes Has a serious heart condition:: Yes Past Medical Illness Past Medical History (Updated 07/11/23 @ 12:21 by Jannie Warner) Atherosclerotic heart disease of [place] coronary artery without angina pectoris I25.10 Chest pain R07.9 COVID-19 U07.1 Diabetes mellitus, type II E11.9 Essential (primary) hypertension I10 Exertional dyspnea R06.09 History of diabetes mellitus Z86.39 Hyperlipidemia E78.5 Nonrheumatic aortic (valve) stenosis I35.0 Urinary tract infection N39.0 Past Surgical History Past Surgical History (Updated 07/11/23 @ 12:20 by Jannie Warner) H/O coronary artery bypass surgery (01/14/10) Z95.1 CABG x 1 HOYT-LAD 01/14/2010 History of appendectomy Z90.49 History of cholecystectomy Z90.49 History of coronary artery stent placement (07/06/23) Z95.5 PCI-JUMA-Mid LCx w/ 2.75 x 23 mm Promus Rx Stent 01/17/2010; JUMA to mLCX 07/06/23 (3.0X12 [place]) History of heart artery stent Z95.5 History of left heart catheterization (07/05/10) Z98.890 History of left knee surgery Z98.890 x2 Hx of CABG Z95.1 S/P right knee surgery Z98.890 x 2 Family History Summary Family History Father CAD (coronary artery disease) Mother Atrial fibrillation Cancer Sister Atrial fibrillation Hypertension Father Colon cancer Social History Smoking History Smoking Status: Never smoker Alcohol Use Alcohol Usage: No Substance Abuse Hx Substance Use: No Occupation Occupation (List type of work in comments):: Retired Hobbies, Recreation, Social Activities Hobbies: Reading and Other (gardening) Recreational Activities: I am able to engage in all my recreational activities Social Environment Status Marital Status: Current Living Arrangements Living Environment:: Family Children How many children do you have?: 3 Do any of your children live nearby?: Yes Safety Do you feel safe in your surroundings?: Yes Assistance Do you need any assistance at home?: no Review of Systems Review of Systems Hints Review of Present Symptoms: Reports Shortness of Breath with Exertion, Fatigue, Appetite - Normal and Appetite - Special Diet; Denies Shortness of Breath at Rest, PVD, Operative Discomfort, Angina, Wound Healing, Dizziness/Lightheadedness, Heart Arrhythmia/Irregularities, Sleep - Normal or Sexual Changes Pain Is Patient Pain Free?: Yes Risk Factor Assessment Vital Signs Pulse Ox: 95 Blood Pressure: 109/68 Pulse Pulse Rate: 53 Hypertension Blood Pressure Sitting - Right Arm: 109/68 Diabetes Diabetic History: Type II (pt states she is no longer diabetic. States she lost weight and eats better) Obesity Height: 5 ft 3 in Weight:: 138 lb 11.2 oz Weight in Pounds: 138.7 lbs Body Mass Index (BMI): 24.5 Nutritional Referral for Obesity: No Physical Inactivity Physical Inactivity: Reg Exercise 30 min/day Risk Stratification Risk Guidelines: Lowest Risk: Risk Factor for Smoking, Moderate Risk: Risk Factor for Obesity, Risk Factor for Sedentary Lifestyle and Risk Factor for Depression and Highest Risk: Risk Factor for Dyslipidemia, Risk Factor for Diabetes and Risk Factor for Hypertension For Smoking Smoking Risk Guidelines For Dyslipidemia Dyslipidemia Risk Guidelines For Diabetes Mellitus Diabetes Risk Guidelines For Obesity/Overweight Obesity/Overweight Risk Guidelines For Hypertension Hypertension Risk Guidelines For Sedentary Lifestyle Sedentary Lifestyle Risk Guidelines For Depression Depression Risk Guidelines Family History Family History Father CAD (coronary artery disease) Mother Atrial fibrillation Cancer Sister Atrial fibrillation Hypertension Father Colon cancer Motivation Motivation to Participate On a scale of 1 to 10, how prepared are you to commit to attending program?: 10 What do you see as barriers to successfully being able to complete the program?: no What do you see as the benefits of succesfully completing the program? In other words, what do you hope to get out of participating in the program?: stronger heart and more energy Are there issues you are dealing with that will interfere with completing the program?: no Do you have a spouse or signficant other, family or friends who will help support you to complete the program?: yes
[2023-07-13 08:16] VITALS: BP 109/68; PULSE 53; O2SAT 95
--- NOTE | 2023-07-13 08:16 | PCM.CR.ITP ---
Diagnosis General Information Admitting Diagnosis: PCI with coronary stent Personal Learning Style:: Audio/Visual Stage of change r/t lifestyle modifications:: Contemplation Gave educational material for:: Treating Heart Disease, How The Heart Works, What it means to have Heart Disease, How Coronary Artery Disease is Diagnosed, Heart Procedures, What Heart Medications Do, Risk Factors & Modifications, Living an Active Life, Nutrition, Emotions & Heart Disease, Stress Management & Relaxation and Sleep Disorders & Heart Disease Education/Goals Cardiac Rehabilitation Goals Personal Goals: Initial Assessment: Improve energy level, Improve knowledge of cardiac disease, Improve muscle strength and endurance and Control risk factors (learn risk factor modification) Scale for measuring improvement of personal goals Diagnosis & Disease Process Outcomes/Goals: Pt IDs own risk factors & lifestyle modifications by Session 10, Verbalizes symptoms of angina & response by session 3., Pt independently manages and Other Additional Outcomes/Goals: Plan/Interventions: Assist Pt to ID & engage in lifestyle modification to reduce CVD risk, Instruct on individual risk factors, Review symptoms of angina & emergency actions, Review secondary diagnosis & identify educational needs. and Other see comment 30 day Reassessments:: Not Met 30 day Reassessments:: Not Met 30 day Reassessments:: Not Met 30 day Reassessments:: Not Met Final Reassessments:: Not Met Safety Referral to Physical Therapy: No Referral to [facility] Case Management: No Fall Risk Assessed:: Yes Assistive Devices:: None Exercise - Initial Assessment Visit Date of Eval: 07/13/23 (initial eval ) Mets: Pre-: >3 METS for 30 minutes by discharge, >5 METS for 30 minutes by discharge, >7 METS for 30 minutes by discharge and Unable to meet goal due to: (see comment below) Physician Prescribed Exercise Modalities: Treadmill, Rower, Airdyne, NuStep, SciFit and Lateral [employer] Frequency: 3x/week for 12 weeks [36 sessions] Intensity: 60-80% of age predicted maximum heart rate reserve Duration: 30 - 45 minutes Current METSs:: 3 Target Heart Rate:: 94-108 Resting Blood Pressure: 109/68 EKG Type: SB Outcomes & Goals Goals:: Verbalizes understanding of THR, RPE & goal METS by session 6, Documents in home exercise log/reports 30 min aerobic 5 day/wk by DC, Demonstrates accurate pulse taking by DC and Other additional outcome/goals: see below Intervention & Plan Exercise Program Goals: Instruct on personal THR & RPE, Instruct on MET level & personal MET goal, Show patient to take own pulse /validate performance until accurate, Instruct on home exercise and Other additional plan/int Physical Activity Home Exercise Physical Activity - Home Exercise: Safe Exercise, Warm-up, Self-monitoring, Cool-Down, Home Exercise > 30 min Daily and Sitting Time <3 hours/daily Outcomes & Goals Outcomes/Goals: Demonstrates correct Warm-up/exercise Cool-Down (S3) if = 2.5 METs, Verbalizes symptoms of exercise intolerance by Session 3 (S3), Demonstrate safe equipment use (S3) & follows exercise prescrition (6) and Other: See below Intervention & Plan Plan/Intervention: Instruct warm-up & cool-down if exercising at > 2 METs, Instruct on symptoms of exercise intolerance & actions to take, Instruct & monitor on saf, Assess intial functional capacity & safety risk and Other See below Nutrition - Initial Assessment Program Goals Nutrition Program Goals Patient has diagnosis of Hyperlipidemia (ICD E78)?: Yes Visit Date of Eval: 07/13/23 (initial eval ) Cholesterol/Lipids (Other Core Measures) Determine presence & major risk factors that modify LDL goal: Hypertension or hypertensive medication, Low HDL cholesterol <40 mg/dL*, Family history of premature CHD in Male < 55 years: female <65 yearsFa and Age men > 45 years; women >/= 55 years Outcomes/Goals: Pt IDs own risk factors & lifestyle modifications by Session 10, Verbalizes symptoms of angina & response by session 3., Pt independently manages and Other Additional Outcomes/Goals: Intervention/Plan: Advocate for lipid panel cholesterol medication if applicable, Instruct on personal lipid levels & lipid goals/NCEP guidelines, Instruct on cholesterol and Other additional plan/int Referral to dietitian:: No (pt declines) Diabetes (Other Core Measures) Diabetes Type: Diagnosis Type II ICD-10 E11 Insulin dependent injection/pump?: No Non-Insulin Dependent?: No Do you monitor your blood sugar at home?: No Referral to Diabetic Clinic:: No Outcomes/Goals:: Able to state symptoms of, Able to state, Able to state and Other additional Intervention/Plan:: Instruct on, Refer to, Instruct on and Other Weight Mgt (Other Care) Height: 5 ft 3 in Weight:: 138 lb 11.2 oz BMI: 24.5 Diagnosis Overweight/Obesity BMI> 30% ICD-10 E66: No Diagnosis High BMI/Morbid Obesity BMI> 35% ICD-10 Z68: No Outcomes/Goals: Pt sets, maintains & shows weight loss goal & trend during rehab and Other additional outcomes/goals Intervention/Plan: Instruct on ideal BMI & set weight loss goal w/patient, Assist pt to ID & incorporate diet changes for weight loss by S9, Refer to Structured Weight Loss program as appropriate, Encourage goal of using 250-300dcal per session for weight loss and Other additional plan/interventions Healthy Eating Habits Will attend diet classes:: Yes Outcomes/Goals:: Consume diet rich in vegs,fruits,whole grain/high fiber,fish,lean meat, Limit sat/trans fats,cholesterol & added salts & sugars and Other additional outcome/goals: Intervention/Plan:: Assess current eating habits and Other Additional plan/interventions Education Gave educational materials for:: Signs & symptoms of hypoglycemia, Signs & symptoms of hyperglycemia, Relate diabetes to coronary artery disease and Healthy eating Core - Initial Assessment Visit Date of Eval: 07/13/23 (initial eval ) Medication Compliance Preventative Medication(s):: Aspirin, THELMA inhibitor, Clopidogrel/P2Y12 inhibit, Statin/lipid and Beta george H/O mental health issues: depression, anxiety, or addiction?: No Doesn?t believe in the benefits of treatment?: No Believes medications are unnecessary or harmful?: No Has a concern about medication side effects?: No Expresses concern over the cost of medications?: No Outcomes/Goals: Verbalizes medications,desired effect & common side effects @ DC, Pt self-reports following medication regimen, Keeps card in wallet w/medications listed by DC and Other additional outcome/goals: Interventions/plans: Instruct on medication effects & side effects, Review medication list w/patient every two weeks, Instruct importance of taking meds as ordered & assist problem solving and Other additional Tobacco Use Tobacco Use: Non-smoker Hypertension Hypertension Diagnosis:: Hypertension ICD-10 I10 Resting Blood Pressure:: 109/68 [place] [employer] Hypertension Guidelines Outcomes/Goals: Able to verbalize/achieve optimal blood pressure <130/80, Incorporates diet changes & exercise for blood pressure control by DC and Other additional outcomes/goals Interventions/plan: Instruct on optimal blood pressure, hypertension & medications, Instruct on effects of sodium, alcohol, stress, exercise &hypertension and Other additional plan/interventions Tobacco Cessation Referral Smoking Cessation Referral:: No Individual Education/Counseling:: No Education Schedule Given:: Yes Psychosocial - Initial Assess VIsit Date of Eval: 07/13/23 (initial eval) History of previous Mental disease:: No Target Goals Target Goals Outcomes/Goals: See list Psychosocial Outcomes/Goals:: ID's personal stressors & 2 strategies to manage stress by discharge and Other Additional outcome/goals: Intervention/Plan: See List Interventions/Plan:: Assess stressors,coping strategies & signs of derpression on admission, Instruct/assist pt to develop coping & personal stress Mgt strategies, Refer to Behavioral Health if appropriate, Refer to Physician if appropriate, Instruct patient to recognize signs & symptoms of depression, Instruct patient to recog and Other additional plan/intervention Patient Health Questionnaire PHQ-9 Screening Initial Assessment: 1. Little interest or pleasure in doing things: Not at all 2. Feeling down, depressed, or hopeless: Not at all 3. Trouble falling or staying asleep, or sleeping too much: Nearly every day 4. Feeling tired or having little energy: Not at all 5. Poor appetite or overeating: Not at all 6. Feeling bad about yourself -- or that you are a failure or have let yourself or your family down: Not at all 7. Trouble concentrating on things, such as reading the newspaper or watching television: Not at all 8. Moving or speaking so slowly that other people could have noticed. Or the opposite - being so fidgety or restless that you have been moving around a lot more than usual: Not at all 9. Thoughts that you would be better off , or of hurting yourself in some way: Not at all How difficult have these problems made it for you to do your work, take care of things at home, or get along with other people?: Somewhat difficult Total Score: 3 MANPREET-Q SV Test Statements CAD is a disease of the arteries in the heart: False Examples of risk factors for heart disease: True Angina is chest pain or discomfort: True The benefits of resistance training include: True Eating more meat and dairy products: False Anti-platelet medications such as aspirin are important: True The only effective way to manage stress: False An exercise warm-up slowly increases heart rate: True Prepared, processed foods usually have high sodium: True Depression is common after a heart attack: True The statin medications lower cholesterol: I Don't Know To control blood pressure, lower the amount of sodium: True If someone gets chest discomfort during walking: False Transfats are partially hydrogenated vegetable oils: True Sleep apnea that is not treated increases the risk: I Don't Know To control cholesterol, one should become a vegetarian: False Someone knows if he/she is exercising at the right level: I Don't Know Diabetes cannot be prevented with exercise & health eating: False Stress is a large risk for heart attack: True A diet that can help lower blood pressure is rich in: True Total Score Total Correct Responses: 17 Self-Efficacy 6-Item Scale Initial Assessment: We would like to know how confident you are in doing certain activities. Please select your confidence level for: Fatigue Select Number: 10 Physical Discomfort or Pain Select Number: 10 Emotional Distress Select Number: 10 Other Symptoms or Health Problems Select Number: 8 Different Tasks and Activities Select Number: 1 Medication Select Number: 10 Total Score:: 8 Nutrition Survey Nutrition Survey Instructions Scoring Instructions Nutrition Survey Initial: Have you lost >10 lbs over the past 2 months without trying?: No Are you following a special diet at home for diabetes, low fat, or low salt?: Yes Are you interested in meeting with a dietitian for help understanding your diet?: Yes Do you eat less than 3 meals a day?: No Do you eat fatty meats (wagner, sausage, ribs, etc), fried foods, desserts, large amounts of salad dressings, margarine, butter, or cheese most days?: No Do you have food allergies? [Enter types in comment field]: No Do you eat in restaurants more than 3 times a week?: No Do you season food with salt, seasoning salt, or garlic salt?: No Do you used canned, boxed, frozen meals, or soups, seasoning packets?: No Total Score:: 2 Exercise - Final/Discharge Physician Prescribed Exercise Modalities: Treadmill, Rower, Airdyne, NuStep, SciFit and Lateral [place] Frequency: 3x/week for 12 weeks [36 sessions] Intensity: 60-80% of age predicted maximum heart rate reserve Current METSs:: 3 Target Heart Rate:: 94-108 Nutrition - 30-Day Assessment Weight Mgt (Other Care) Height: 5 ft 3 in Weight:: 138 lb 11.2 oz BMI: 24.5 Nutrition - 60-Day Assessment Weight Mgt (Other Care) Height: 5 ft 3 in Weight:: 138 lb 11.2 oz BMI: 24.5 Core - Final Assessment Hypertension Resting Blood Pressure:: 109/68 [place] [employer] Hypertension Guidelines Core - 60-Day Assessment Hypertension Resting Blood Pressure:: 109/68 [place] [employer] Hypertension Guidelines Psychosocial - 30-Day Assess Target Goals Target Goals Psychosocial - 60-Day Assess Target Goals Target Goals Psychosocial - 90-Day Assess Target Goals Target Goals Psychosocial - Final Assessmen Target Goals Target Goals Nutrition - 90-Day Assessment Weight Mgt (Other Care) Height: 5 ft 3 in Weight:: 138 lb 11.2 oz BMI: 24.5 Nutrition - Final Assessment Program Goals Patient has diagnosis of Hyperlipidemia (ICD E78)?: Yes Weight Mgt (Other Care) Height: 5 ft 3 in Weight:: 138 lb 11.2 oz BMI: 24.5
[2023-07-13 08:22] VITALS: BP 109/68
[2023-07-13 08:37] VITALS: BMI 24.5
[2023-07-13 09:26] VITALS: BMI 24.5
== END | disposition home or self-care (01) ==
LOC: CR 07:58
PROVIDERS: PCP Family Medicine; Referring Provider Specialist; Visit Provider Internal Medicine Cardiovascular Disease
DX: Z00.00 Encounter for general adult medical examination without abnormal findings (principal)

== ENCOUNTER 2023-07-16 09:03 | Outpatient (RCR) | payer MEDICARE, SELFPAY ==
[2023-07-13 09:26] VITALS: BMI 24.5
== END 2023-07-17 23:59 ==
LOC: CR 09:03
PROVIDERS: PCP Family Medicine; Referring Provider Internal Medicine Cardiovascular Disease; Visit Provider Internal Medicine Cardiovascular Disease
DX: Z95.5 Presence of coronary angioplasty implant and graft (principal); I25.10 Atherosclerotic heart disease of native coronary artery without angina pectoris
CPT/HCPCS: 93798

== ENCOUNTER → 2023-07-26 | Outpatient (CLI) | payer MEDICARE, SELFPAY ==
[2023-07-13 09:26] VITALS: BMI 24.5
--- NOTE | 2023-07-26 10:55 | CT_ITS ---
STUDY: CTA CHEST REASON FOR EXAM: Female, 78 years old. D-Dimer 1.0 (HIGH), SOB RADIATION DOSAGE (If Supplied By Facility): CTDIvol = ( 5.67 ) mGy, DLP = ( 166.36 ) mGycm TECHNIQUE: The examination was performed with the intravenous administration of IV 100mL Isovue-370. Post-processing of the angiographic images was performed, with multiplanar reformation and 3D reconstruction. Individualized dose optimization techniques were used for this CT. COMPARISON: None. FINDINGS: Normal enhancement of the main pulmonary artery and right and left pulmonary arteries. Normal enhancement of the bilateral peripheral pulmonary arteries. There is no demonstrated pulmonary embolism. Normal thoracic aorta and visualized great vessels. There is no demonstrated aortic dissection. Sternal cerclage wires and vascular clips are present from a prior sternotomy and coronary artery bypass graft procedure (CABG). There are calcifications of the coronary arteries. Normal mediastinum. Normal hilar regions. Normal visualized trachea and bronchi. The lungs are well expanded. Normal pulmonary parenchyma. Normal pleura. Normal chest wall structures. There are degenerative changes of thoracic spine. 3 cm x 1.8 cm cyst in the upper pole of the left kidney. CT/CTA Chest W/WO Contrast IMPRESSION: No evidence of pulmonary embolism. Stable left renal cysts. Electronically Signed: Donovan Roche MD at 12:09 EST ,
[2023-07-26 16:18] LABS: Troponin-I HS 14 pg/mL (3.0-54.0)
== END | disposition home or self-care (01) ==
PROVIDERS: PCP Family Medicine; Referring Provider Physician Assistant Medical; Visit Provider Physician Assistant Medical
DX: R07.9 Chest pain, unspecified (principal); E11.9 Type 2 diabetes mellitus without complications; R06.09 Other forms of dyspnea; R53.83 Other fatigue; I25.10 Atherosclerotic heart disease of native coronary artery without angina pectoris; Z95.5 Presence of coronary angioplasty implant and graft; Z95.1 Presence of aortocoronary bypass graft
CPT/HCPCS: 36415; 71046; 71275; 80048; 83880; 84484; 85027; 85379; Q9967; A4216

== ENCOUNTER → 2023-07-26 | Outpatient (CLI) | payer MEDICARE, SELFPAY ==
[2023-07-13 09:26] VITALS: BMI 24.5
--- NOTE | 2023-07-26 08:31 | RAD_ITS ---
EXAM: XR CHEST, 2 VIEWS CLINICAL INDICATION: Shortness of breath TECHNIQUE: Frontal and lateral views of the chest. COMPARISON: 06/22/2023 and CTA chest subsequently, 07/26/2023. FINDINGS: LUNGS AND PLEURAL SPACES: No significant abnormality. No consolidation or edema. No pneumothorax. No effusion. HEART: Coronary artery stent and/or calcification partially visualized. MEDIASTINUM: Central airways and mediastinal contour are unremarkable. BONES/JOINTS: Status post median sternotomy. SOFT TISSUES: No significant abnormality. VASCULATURE: Mild aortic tortuosity. RAD/Chest PA and Lateral IMPRESSION: No acute findings in the chest. Electronically Signed: Micky Robertson DO at 23:08 EST ,
[2023-07-26 08:41] LABS: Hematocrit 40.6 % (37-47); Hemoglobin 12.7 g/dL (12.0-15.0); Mean Corp Hgb Conc 31.3 g/dL (32-36); Mean Corpuscular Hgb 29.5 pg (27.0-32.0); Mean Corpuscular Volume 94.2 fL (81-99); Mean Platelet Vol. 10.6 fl (6.2-12.0); Platelet Count 251 K/mm3 (150-450); RBC Distribution Width CV 13.1 % (11.6-14.6); RBC Distribution Width SD 44.9 fl (35.1-43.9); Red Blood Count 4.31 M/mm3 (4.2-5.4); White Blood Count 7.1 K/mm3 (4.4-11.0)
[2023-07-26 09:08] LABS: BNP,B-Type NATRIURETIC PEPTIDE 48.4 pg/mL (0-100)
[2023-07-26 09:14] LABS: Anion Gap 1 (5-15); BUN 28 mg/dL (7-18); BUN/Creat Ratio 28.6 RATIO (10-20); Calcium,Total 9.4 mg/dL (8.5-10.1); Chloride 108 mmol/L (98-107); Creatinine, Serum 0.98 mg/dL (0.55-1.02); EST Glomerular Filtration Rate 59 mL/min (>60); Est Glom Filt Rate - Afr Amer 71 mL/min (>60); Glucose 113 mg/dL (74-106); Potassium 4.4 mmol/L (3.5-5.1); Sodium Level 139 mmol/L (136-145)
== END | disposition home or self-care (01) ==
PROVIDERS: PCP Family Medicine; Referring Provider Physician Assistant Medical; Visit Provider Physician Assistant Medical
DX: R06.09 Other forms of dyspnea (principal); E11.9 Type 2 diabetes mellitus without complications; R53.83 Other fatigue; I25.10 Atherosclerotic heart disease of native coronary artery without angina pectoris; Z95.5 Presence of coronary angioplasty implant and graft
CPT/HCPCS: 36415; 71046; 80048; 83880; 85027; 85379

== ENCOUNTER → 2023-07-31 | Outpatient (CLI) | payer MEDICARE, SELFPAY ==
[2023-07-13 09:26] VITALS: BMI 24.5
--- NOTE | 2023-08-01 10:00 | PFT ---
INTRODUCTION: The patient is a 78-year-old female who presents for pulmonary function studies secondary to a diagnosis of shortness of breath. Respiratory therapy reported good patient effort. Bronchodilators were used during testing. INTERPRETATION: Forced expiration spirometry demonstrates no evidence of a large airways obstructive ventilatory defect. There was no significant response to aerosolized bronchodilators. Body plethysmography was performed and revealed lung volumes to be within normal limits. Diffusing capacity by single breath CO was also within normal limits. IMPRESSION: Grossly normal pulmonary function studies.
== END | disposition home or self-care (01) ==
PROVIDERS: PCP Family Medicine; Visit Provider Physician Assistant Medical
DX: R06.02 Shortness of breath (principal)
CPT/HCPCS: 94060; 94726; 94729

== ENCOUNTER 2023-08-15 09:15 | Outpatient (RCR) | payer MEDICARE, SELFPAY ==
[2023-07-13 09:26] VITALS: BMI 24.5
--- NOTE | 2023-08-13 09:19 | PCM.CR.ITP ---
Nutrition - Initial Assessment Weight Mgt (Other Care) Height: 5 ft 3 in Weight:: 136 lb BMI: 24.0 Psychosocial - Initial Assess Target Goals Target Goals Referral to Behavioral Health PS - Interventions: Yes: Attend Stress Management Classes and No: Referral to Behavioral Health if PHQ-9 score >9:, No: Referral to [facility] and No: Referral to Physician if PHQ-9 if score is 5-9: Patient Health Questionnaire PHQ-9 Screening 30-Day Re-eval Assessment: 1. Little interest or pleasure in doing things: Not at all 2. Feeling down, depressed, or hopeless: Not at all 3. Trouble falling or staying asleep, or sleeping too much: Not at all 4. Feeling tired or having little energy: More than half the days 5. Poor appetite or overeating: Not at all 6. Feeling bad about yourself -- or that you are a failure or have let yourself or your family down: Not at all 7. Trouble concentrating on things, such as reading the newspaper or watching television: Not at all 8. Moving or speaking so slowly that other people could have noticed. Or the opposite - being so fidgety or restless that you have been moving around a lot more than usual: Not at all 9. Thoughts that you would be better off , or of hurting yourself in some way: Not at all How difficult have these problems made it for you to do your work, take care of things at home, or get along with other people?: Not difficult at all Total Score: 2 Self-Efficacy 6-Item Scale 30-Day Re-eval Assessment: We would like to know how confident you are in doing certain activities. Please select your confidence level for: Fatigue Select Number: 10 Physical Discomfort or Pain Select Number: 10 Emotional Distress Select Number: 10 Other Symptoms or Health Problems Select Number: 9 Different Tasks and Activities Select Number: 6 Medication Select Number: 10 Total Score:: 9 Nutrition Survey Nutrition Survey Instructions Scoring Instructions Exercise - 30-day Assessment Visit Date of Eval: 08/13/23 Session #:: 12 Physician Prescribed Exercise Modalities: Treadmill, NuStep and SciFit Frequency: 3x/week for 12 weeks [36 sessions] Intensity: 60-80% of age predicted maximum heart rate reserve Duration: 30 - 45 minutes Current METSs:: 5.0 Target Heart Rate:: 108-122 Current RPE:: 13-14 Maximum Excercise HR:: 110 Resting Blood Pressure: 142/78 Maximum Exercise Blood Pressure: 172/74 EKG Type: NSR to sinus tach w/T wave inversion rare PAC, PVC. Current Physical Activity or Exercising minutes: 36:32 Outcomes & Goals Goals:: Verbalizes understanding of THR, RPE & goal METS by session 6, Documents in home exercise log/reports 30 min aerobic 5 day/wk by DC and Demonstrates accurate pulse taking by DC Intervention & Plan Exercise Program Goals: Instruct on personal THR & RPE, Instruct on MET level & personal MET goal, Show patient to take own pulse /validate performance until accurate and Instruct on home exercise 30-day Reassessments 30 day Reassessments:: Met Physical Activity Home Exercise Physical Activity - Home Exercise: Safe Exercise, Warm-up, Self-monitoring, Cool-Down, Home Exercise > 30 min Daily and Sitting Time <3 hours/daily Outcomes & Goals Outcomes/Goals: Demonstrates correct Warm-up/exercise Cool-Down (S3) if = 2.5 METs, Verbalizes symptoms of exercise intolerance by Session 3 (S3) and Demonstrate safe equipment use (S3) & follows exercise prescrition (6) Intervention & Plan Plan/Intervention: Instruct warm-up & cool-down if exercising at > 2 METs, Instruct on symptoms of exercise intolerance & actions to take, Instruct & monitor on saf and Assess intial functional capacity & safety risk 30-day Reassessments 30 day Reassessments:: Met Nutrition - 30-Day Assessment Weight Mgt (Other Care) Not Applicable: Yes Height: 5 ft 3 in Weight:: 136 lb BMI: 24.0 Diagnosis Overweight/Obesity BMI> 30% ICD-10 E66: No Diagnosis High BMI/Morbid Obesity BMI> 35% ICD-10 Z68: No Outcomes/Goals: Pt sets, maintains & shows weight loss goal & trend during rehab Intervention/Plan: Instruct on ideal BMI & set weight loss goal w/patient 30 day Reassessments:: Met Healthy Eating Habits Will attend diet classes:: Yes Outcomes/Goals:: Consume diet rich in vegs,fruits,whole grain/high fiber,fish,lean meat and Limit sat/trans fats,cholesterol & added salts & sugars Intervention/Plan:: Assess current eating habits 30-day Reassessments:: Progressing Education Gave educational materials for:: Healthy eating Nutrition - 60-Day Assessment Weight Mgt (Other Care) Height: 5 ft 3 in Weight:: 136 lb BMI: 24.0 Psychosocial - 30-Day Assess VIsit Date of Eval: 08/13/23 Session #:: 12 Not Applicable: Yes History of previous Mental disease:: No Target Goals Target Goals Psychosocial Test Tool Used:: PHQ-9 Questionnaire phq-9 Severity Referral to Behavioral Health PS - Interventions: Yes: Attend Stress Management Classes and No: Referral to Behavioral Health if PHQ-9 score >9:, No: Referral to [facility] and No: Referral to Physician if PHQ-9 if score is 5-9: Outcomes/Goals: See list Psychosocial Outcomes/Goals:: ID's personal stressors & 2 strategies to manage stress by discharge Intervention/Plan: See List Interventions/Plan:: Assess stressors,coping strategies & signs of derpression on admission, Instruct/assist pt to develop coping & personal stress Mgt strategies, Instruct patient to recognize signs & symptoms of depression and Instruct patient to recog 30-day Reassessments: 30 day Reassessments:: Progressing Psychosocial - 60-Day Assess Target Goals Target Goals Referral to Behavioral Health PS - Interventions: Yes: Attend Stress Management Classes and No: Referral to Behavioral Health if PHQ-9 score >9:, No: Referral to [facility] and No: Referral to Physician if PHQ-9 if score is 5-9: Outcomes/Goals: See list Psychosocial Outcomes/Goals:: ID's personal stressors & 2 strategies to manage stress by discharge Psychosocial - 90-Day Assess Target Goals Target Goals Referral to Behavioral Health PS - Interventions: Yes: Attend Stress Management Classes and No: Referral to Behavioral Health if PHQ-9 score >9:, No: Referral to [facility] and No: Referral to Physician if PHQ-9 if score is 5-9: Psychosocial - Final Assessmen Target Goals Target Goals Referral to Behavioral Health PS - Interventions: Yes: Attend Stress Management Classes and No: Referral to Behavioral Health if PHQ-9 score >9:, No: Referral to [facility] and No: Referral to Physician if PHQ-9 if score is 5-9: Nutrition - 90-Day Assessment Weight Mgt (Other Care) Height: 5 ft 3 in Weight:: 136 lb BMI: 24.0 Nutrition - Final Assessment Weight Mgt (Other Care) Height: 5 ft 3 in Weight:: 136 lb BMI: 24.0
[2023-08-13 09:26] VITALS: BP 142/78; BMI 24.0
== END 2023-08-16 23:59 ==
LOC: CR 09:15
PROVIDERS: PCP Family Medicine; Referring Provider Internal Medicine Cardiovascular Disease; Visit Provider Internal Medicine Cardiovascular Disease
DX: Z95.5 Presence of coronary angioplasty implant and graft (principal); I25.10 Atherosclerotic heart disease of native coronary artery without angina pectoris
CPT/HCPCS: 93798

== ENCOUNTER → 2023-08-27 | Outpatient (CLI) | payer MEDICARE, SELFPAY ==
[2023-07-13 09:26] VITALS: BMI 24.5
== END | disposition home or self-care (01) ==
LOC: SL 20:17
PROVIDERS: PCP Family Medicine; Referring Provider Nurse Practitioner Family; Visit Provider Nurse Practitioner Family
DX: G47.10 Hypersomnia, unspecified (principal)
CPT/HCPCS: 95810

== ENCOUNTER → 2023-08-28 | Outpatient (CLI) | payer MEDICARE, SELFPAY ==
[2023-07-13 09:26] VITALS: BMI 24.5
[2023-08-13 09:26] VITALS: BMI 24.0
--- NOTE | 2023-08-29 09:23 | STRESSREP ---
Stress Test Report Pharmacologic myocardial perfusion stress test. 78-year-old lady with a history of dyspnea on exertion Resting EKG demonstrates sinus bradycardia with a rate of 47 bpm. Resting blood pressure is 150/82 mmHg. 0.4 mg of regadenoson was infused per usual protocol followed by rapid intravenous saline flush injection. Continuous EKG monitoring was performed. The maximum heart rate was 103 bpm which was 72% of max impacted heart rate the maximum workload was 1 metabolic equivalent. At rest there were no ST or T wave changes noted to suggest ischemia and at peak infusion nonspecific ST changes were noted which did not meet the criteria for ischemia. No clinical angina is noted. The final blood pressure was 132/72 mmHg. Myocardial perfusion protocol. 11.8 mCi of technetium 99m sestamibi was injected at rest. 0.4 mg of regadenoson was infused per usual protocol. At peak infusion 34.7 mCi of technetium 99m sestamibi was injected stress images were obtained stress and rest images were reconstructed and compared in the short axis vertical long and horizontal long axis. Gated images were also obtained. Perfusion SPECT analysis: Review of the stress images demonstrate normal uptake of tracer noted in all areas of the myocardium. The resting images similar demonstrated normal uptake of tracer noted in all areas of the myocardium. No areas of reversibility are noted to suggest ischemia and no previous infarct is noted. Gated SPECT analysis: The gated ejection fraction is 83%. Conclusion: Normal pharmacologic myocardial perfusion stress test. Preserved ejection fraction.
== END | disposition home or self-care (01) ==
LOC: CVS 06:01
PROVIDERS: PCP Family Medicine; Referring Provider Nurse Practitioner Family; Visit Provider Nurse Practitioner Family
DX: I25.10 Atherosclerotic heart disease of native coronary artery without angina pectoris (principal); R53.83 Other fatigue; R06.09 Other forms of dyspnea; Z95.5 Presence of coronary angioplasty implant and graft
CPT/HCPCS: 78452; 93017; A9500; A4216; J2785

== ENCOUNTER → 2023-08-30 | Outpatient (CLI) | payer MEDICARE, SELFPAY ==
[2023-08-13 09:26] VITALS: BMI 24.0
--- NOTE | 2023-08-30 14:11 | BI_ITS ---
MAMMOGRAPHY - BILATERAL SCREENING REASON FOR EXAM: Female, 78 years old. Routine annual screening examination. PERTINENT HISTORY: Non-contributory. TECHNIQUE: Digital bilateral breast alvaro (3D mammographic acquisition) in the CC and MLO projections. 2-D mediolateral oblique (MLO) and craniocaudad (CC) views of both breasts were obtained. CAD: Full Field Digital Mammography with Computer Added Detection was performed. COMPARISON: Comparison is made with prior study dated December 07, 2021 and 2020. FINDINGS: Breast Composition: The breasts are almost entirely fatty. There are no dominant masses or suspicious calcifications. Stable 5 mm well-defined nodule in the upper outer aspect of the right breast. This most likely represents a small lymph node. No other significant abnormalities are identified. There has been no significant change since the prior study. BI/SCRN MAMM (CAD)W/ALVARO BILAT IMPRESSION: Stable bilateral screening mammogram. Yearly follow-up mammogram recommended. (A) ASSESSMENT CATEGORY: BIRADS Category 2: Benign. A letter regarding these results will be sent to the patient by the facility within 30 days. Approximately 10% of breast cancers are not detected by mammography. A normal mammogram should not delay biopsy of a clinically suspicious abnormality. [id number] Electronically Signed: Donovan Roche MD at 15:13 EST ,
== END | disposition home or self-care (01) ==
LOC: OPBI 14:10
PROVIDERS: PCP Family Medicine; Referring Provider Family Medicine; Visit Provider Family Medicine
DX: Z12.31 Encounter for screening mammogram for malignant neoplasm of breast (principal)
CPT/HCPCS: 77063; 77067

== ENCOUNTER 2023-09-12 09:15 | Outpatient (RCR) | payer MEDICARE, SELFPAY ==
[2023-08-13 09:26] VITALS: BMI 24.0
[2023-08-17 00:23] VITALS: BP 142/78
--- NOTE | 2023-09-14 08:10 | CR.ITP_ITS ---
Nutrition - Initial Assessment Weight Mgt (Other Care) Height: 5 ft 3 in Weight:: 136 lb 8 oz BMI: 24.1 Psychosocial - Initial Assess Target Goals Target Goals Patient Health Questionnaire PHQ-9 Screening 60-Day Re-eval Assessment: 1. Little interest or pleasure in doing things: Not at all 2. Feeling down, depressed, or hopeless: Not at all 3. Trouble falling or staying asleep, or sleeping too much: Not at all 4. Feeling tired or having little energy: More than half the days 5. Poor appetite or overeating: Not at all 6. Feeling bad about yourself -- or that you are a failure or have let yourself or your family down: Not at all 7. Trouble concentrating on things, such as reading the newspaper or watching television: Not at all 8. Moving or speaking so slowly that other people could have noticed. Or the opposite - being so fidgety or restless that you have been moving around a lot more than usual: Not at all 9. Thoughts that you would be better off , or of hurting yourself in some way: Not at all How difficult have these problems made it for you to do your work, take care of things at home, or get along with other people?: Not difficult at all Total Score: 2 Self-Efficacy 6-Item Scale 60-Day Re-eval Assessment: We would like to know how confident you are in doing certain activities. Please select your confidence level for: Fatigue Select Number: 10 Physical Discomfort or Pain Select Number: 10 Emotional Distress Select Number: 10 Other Symptoms or Health Problems Select Number: 9 Different Tasks and Activities Select Number: 6 Medication Select Number: 10 Total Score:: 9 Nutrition Survey Nutrition Survey Instructions Scoring Instructions Exercise - 60-day Assessment Visit Date of Eval: 09/14/23 Session #:: 24 Physician Prescribed Exercise Modalities: Treadmill, NuStep and SciFit Frequency: 3x/week for 12 weeks [36 sessions] Intensity: 60-80% of age predicted maximum heart rate reserve Duration: 30 - 45 minutes Current METSs:: 5 Target Heart Rate:: 108-122 Current RPE:: 15 Maximum Excercise HR:: 122 Resting Blood Pressure: 128/82 Maximum Exercise Blood Pressure: 148/78 EKG Type: NSR w Twave inversion with rare pac, pvc. Outcomes & Goals Goals:: Verbalizes understanding of THR, RPE & goal METS by session 6, Documents in home exercise log/reports 30 min aerobic 5 day/wk by DC, Demonstrates accurate pulse taking by DC and Other additional outcome/goals: see below Intervention & Plan Exercise Program Goals: Instruct on personal THR & RPE, Instruct on MET level & personal MET goal, Show patient to take own pulse /validate performance until accurate, Instruct on home exercise and Other additional plan/int 30-day Reassessments 30 day Reassessments:: Met Physical Activity Home Exercise Physical Activity - Home Exercise: Safe Exercise, Warm-up, Self-monitoring, Cool-Down, Home Exercise > 30 min Daily and Sitting Time <3 hours/daily Outcomes & Goals Outcomes/Goals: Demonstrates correct Warm-up/exercise Cool-Down (S3) if = 2.5 METs, Verbalizes symptoms of exercise intolerance by Session 3 (S3), Demonstrate safe equipment use (S3) & follows exercise prescrition (6) and Other: See below Intervention & Plan Plan/Intervention: Instruct warm-up & cool-down if exercising at > 2 METs, Instruct on symptoms of exercise intolerance & actions to take, Instruct & monitor on saf, Assess intial functional capacity & safety risk and Other See below 30-day Reassessments 30 day Reassessments:: Met Nutrition - 30-Day Assessment Weight Mgt (Other Care) Height: 5 ft 3 in Weight:: 136 lb 8 oz BMI: 24.1 Nutrition - 60-Day Assessment Visit Date of Eval: 09/14/23 Session #:: 24 Cholesterol/Lipids (Other Core Measures) Determine presence & major risk factors that modify LDL goal: Cigarette smoking, Hypertension or hypertensive medication, Low HDL cholesterol <40 mg/dL*, Family history of premature CHD in Male < 55 years: female <65 yearsFa and Age men > 45 years; women >/= 55 years Outcomes/Goals: Pt IDs own risk factors & lifestyle modifications by Session 10, Verbalizes symptoms of angina & response by session 3., Pt independently manages and Other Additional Outcomes/Goals: Intervention/Plan: Advocate for lipid panel cholesterol medication if applicable, Instruct on personal lipid levels & lipid goals/NCEP guidelines, Instruct on cholesterol and Other additional plan/int 30-day Reassessments:: Met Weight Mgt (Other Care) Height: 5 ft 3 in Weight:: 136 lb 8 oz BMI: 24.1 Diagnosis Overweight/Obesity BMI> 30% ICD-10 E66: No Diagnosis High BMI/Morbid Obesity BMI> 35% ICD-10 Z68: No 30 day Reassessments:: Met Healthy Eating Habits Will attend diet classes:: Yes Outcomes/Goals:: Consume diet rich in vegs,fruits,whole grain/high fiber,fish,lean meat, Limit sat/trans fats,cholesterol & added salts & sugars and Other additional outcome/goals: Intervention/Plan:: Assess current eating habits and Other Additional plan/interventions 30-day Reassessments:: Met Education Gave educational materials for:: Signs & symptoms of hypoglycemia, Signs & symptoms of hyperglycemia, Relate diabetes to coronary artery disease and Healthy eating Core - 60-Day Assessment Visit Date of Eval: 09/14/23 Session #:: 24 Medication Compliance H/O mental health issues: depression, anxiety, or addiction?: No Doesn?t believe in the benefits of treatment?: No Believes medications are unnecessary or harmful?: No Has a concern about medication side effects?: No Expresses concern over the cost of medications?: No Outcomes/Goals: Verbalizes medications,desired effect & common side effects @ DC, Pt self-reports following medication regimen, Keeps card in wallet w/medications listed by DC and Other additional outcome/goals: Interventions/plans: Instruct on medication effects & side effects, Review medication list w/patient every two weeks, Instruct importance of taking meds as ordered & assist problem solving and Other additional 30-day Reassessments:: Met Tobacco Use Tobacco Use: Non-smoker Hypertension Resting Blood Pressure:: 128/82 [place] [employer] Hypertension Guidelines Peak Exercise Blood Pressure:: 148/78 Outcomes/Goals: Able to verbalize/achieve optimal blood pressure <130/80, Incorporates diet changes & exercise for blood pressure control by DC and Other additional outcomes/goals Interventions/plan: Instruct on optimal blood pressure, hypertension & medications, Instruct on effects of sodium, alcohol, stress, exercise &hypertension and Other additional plan/interventions 30 day Reassessments:: Met Tobacco Cessation Referral Smoking Cessation Referral:: No Individual Education/Counseling:: No Education Schedule Given:: Yes Psychosocial - 30-Day Assess Target Goals Target Goals Psychosocial - 60-Day Assess VIsit Date of Eval: 09/14/23 Session #:: 24 Target Goals Target Goals 30-day Reassessments: 30 day Reassessments:: Met Psychosocial - 90-Day Assess Target Goals Target Goals Psychosocial - Final Assessmen Target Goals Target Goals Nutrition - 90-Day Assessment Weight Mgt (Other Care) Height: 5 ft 3 in Weight:: 136 lb 8 oz BMI: 24.1 Nutrition - Final Assessment Weight Mgt (Other Care) Height: 5 ft 3 in Weight:: 136 lb 8 oz BMI: 24.1
[2023-09-14 08:21] VITALS: BP 128/82; BMI 24.1
== END 2023-09-16 23:59 ==
LOC: CR 09:15
PROVIDERS: PCP Family Medicine; Referring Provider Internal Medicine Cardiovascular Disease; Visit Provider Internal Medicine Cardiovascular Disease
DX: Z95.5 Presence of coronary angioplasty implant and graft (principal); I25.10 Atherosclerotic heart disease of native coronary artery without angina pectoris
CPT/HCPCS: 93798

== ENCOUNTER → 2023-10-26 | Outpatient (CLI) | payer MEDICARE, SELFPAY | END | disposition home or self-care (01) | PROVIDERS: PCP Family Medicine; Referring Provider Family Medicine; Visit Provider Family Medicine | DX: N39.0 Urinary tract infection, site not specified (principal) ==

== ENCOUNTER → 2023-10-29 | Outpatient (CLI) | payer MEDICARE, SELFPAY ==
--- OUTSIDE RECORDS SUMMARY | 2023-10-29 09:43 | XMS RPT_ITS | CCD ---
Author Name Unknown Address [address] [place] [address] Organization [facility] Care Team Providers Care Group Leader [employer] Name Role Phone Luiz Dennis Y Unavailable Unavailable Triny Kraft Unavailable Unavailable Luiz Dennis Unavailable Unavailable Luiz Dennis Y Unavailable Unavailable ROYA Iverson, Chante Santiago Unavailable Sydnee Jane Primary Care Provider [phone] Rolan Temple Primary Care Provider Cory Sim Unavailable Randy Ferrera Unavailable Suleiman Woo Unavailable Montrell Mackey Unavailable Floyd Jacobs Unavailable Roselyn Ríos Unavailable Unavailable Unavailable Unavailable Triny Kraft Unavailable Unavailable Allergies Allergy Classification Reported Allergen(s) Allergy Type Date of Onset Reaction(s) Facility (6 sources) atorvastatin drug allergy 5 mylagias [facility] Work Phone: (8 sources) codeine drug allergy 7 GI Upset [facility] Work Phone: (6 sources) Sulfonamides (Antibiotic) drug allergy 1 [facility] Work Phone: (2 sources) Sulfonamides (Antibiotic) Drug Allergy 7 Rash [facility] (1 source) Sulfonamides (Antibiotic); Translations: [Sulfa Drugs] Allergy to substance (finding) [facility] Work Phone: (1 source) Codeine/Codeine Derivatives; Translations: [Codeine/Codeine Derivatives] Allergy to substance (finding) [facility]; [facility] Work Phone: Medications Completed/Discontinued Medications Medication Drug Class(es) Dates Sig (Normalized) Sig (Original) acetaminophen 500 mg / HYDROcodone bitartrate 5 mg oral tablet (1 source) Opioid Agonist Start: 07-22-2012 End: 08-30-2012 take 1-2 tablets by mouth every six hours as needed HYDROCODONE-ACETAM INOPHEN, 5-500MG (Oral Tablet) 1-2 Tablet q6h prn for 0 days Quantity: 20 {Tablet} Refills: 0 Ordered: 30-Aug-2012 Annamarie Parikh RN Start : 22-Jul-2012 End : 30-Aug-2012 Inactive acetaminophen 650 mg / propoxyphene napsylate 100 mg oral tablet (1 source) Opioid Agonist Start: 12-13-2009 End: 06-28-2010 take 1 tablet by mouth every eight hours as needed DARVOCET-N 100, 100-650MG (Oral Tablet) 1 (one) Tablet Q 8 HR PRN for 0 days Quantity: 60 {Tablet} Refills: 0 Ordered: 28-Jun-2010 MILY Deng LPN Start : 13-Dec-2009 End : 28-Jun-2010 Inactive 200 actuat albuterol 0.09 mg/actuat metered dose inhaler (1 source) beta2-Adrenergic Agonist Start: 10-03-2013 End: 12-01-2013 PROVENTIL HFA, 108 (90 Base)MCG/ACT (Inhalation Aerosol Solution) 1 (one) Aerosol Soln 2 puffs qd prn for 0 days Quantity: 1 {Inhaler} Refills: 0 Ordered: 01-Dec-2013 MILY Deng LPN Start : 03-Oct-2013 End : 01-Dec-2013 Inactive amoxicillin 875 mg / clavulanate 125 mg oral tablet (1 source) Penicillin-class Antibacterial Start: 11-15-2015 End: 12-06-2015 take 1 tablet by mouth twice daily AUGMENTIN, 875-125MG (Oral Tablet) 1 (one) Tablet bid for 0 days Quantity: 20 {Tablet} Refills: 0 Ordered: 06-Dec-2015 MILY Deng LPN Start : 15-Nov-2015 End : 06-Dec-2015 Inactive ascorbic acid 60 mg / beta carotene 5000 unt / copper sulfate 40 mg / dl-alpha tocopheryl acetate 30 unt / sodium selenite 0.04 mg / zinc oxide 40 mg oral tablet (2 sources) Vitamin C Start: 09-14-2016 End: 10-14-2016 take 1 tablet by mouth once daily Multivitamin Women Oral Tablet 1 (one) Tablet qd for 30 days Quantity: 30 {Tablet} Refills: 0 Ordered: 05-Dec-2016 Roney FONTANEZ, Cory Alexandra MD Start : 14-Sep-2016 End : 14-Oct-2016 Inactive Problems Active Problems Problem Classification Problem Date Documented Da te Episodic/Chronic Abdominal pain (9 sources) Abdominal pain; Translations: [Epigastric pain] Onset: 11-12-2008 Resolved: 09-19-2015 11-12-2008 Episodic Past or Other Problems Problem Classification Problem Date Documented Da te Episodic/Chronic Abdominal hernia (2 sources) Diaphragmatic hernia; Translations: [Diaphragmatic hernia without mention of obstruction or gangrene] Onset: 11-12-2008 11-12-2008 Episodic Biliary tract disease (2 sources) Disorder of gallbladder; Translations: [Other specified disorder of gallbladder] Onset: 12-11-2008 12-11-2008 Episodic Coronary atherosclerosis and other heart disease (12 sources) Presence of aortocoronary bypass graft; Translations: [Coronary angioplasty status] Onset: 01-05-2011 01-05-2011 Episodic Diverticulosis and diverticulitis (3 sources) Diverticulosis of colon; Translations: [Diverticulitis of intestine] Onset: 11-12-2008 Resolved: 12-06-2015 11-12-2008 Results Test Name Value Interpretation Reference Range Facil ity Vital Signs Date Time Vital Sign Value Performing Clinician Facility 11-11-2020 08:43-0500 Body weight 64.41 kg [facility] 11-11-2020 08:43-0500 Height 160 cm [facility] 11-11-2020 08:43-0500 Respiratory Rate 17 /min Counts Include 234 [facility] 02-19-2017 14:16-0400 BMI (Body Mass Index) 29.28 kg/m2 Triny Kraft [facility] Work Phone: 02-19-2017 14:16-0400 Body weight 77.38 kg [facility] Work Phone: 02-19-2017 14:16-0400 BP Diastolic 90 mm[Hg] [facility] Work Phone: 02-19-2017 14:16-0400 BP Systolic 160 mm[Hg] [facility] Work Phone: 02-19-2017 14:16-0400 Height 162.56 cm [facility] Work Phone: 02-19-2017 14:16-0400 Pulse (Heart Rate) 74 /min [facility] Work Phone: 02-19-2017 14:16-0400 Respiratory Rate 20 /min [facility] Work Phone: 02-19-2017 14:16-0400 Weight 77.38 kg [facility] Work Phone: 09-14-2016 08:57-0500 BMI (Body Mass Index) 31.89 kg/m2 [facility] Work Phone: 09-14-2016 08:57-0500 Body Temperature 97.8 [degF] [facility] Work Phone: Encounters Encounter Date Encounter Type Care Provider Facility Start: 11-11-2020 End: 11-11-2020 Patient encounter procedure Randy Gio Work Phone: [facility] Procedures Date Procedure Procedure Detail Performing Clinician Start: 02-19-2017 End: 02-19-2017 Documentation of current medications Triny Kraft Start: 02-19-2017 End: 08-06-2017 *Hepatic Function Panel Chante Iverson PA-C Work Phone: Start: 02-19-2017 End: 02-19-2017 NUCLEAR POWER PLANT ENGINEER Chante Iverson PA-C Work Phone: Start: 02-19-2017 End: 02-19-2017 Follow Up Appt 6 months Chante Iverson PA-C Work Phone: Start: 02-19-2017 End: 08-06-2017 Lipid 1996 panel - Serum or Plasma Chante Iverson PA-C Work Phone: Start: 02-19-2017 End: 02-19-2017 NUCLEAR POWER PLANT ENGINEER Chante Iverson PA-C Work Phone: Start: 02-19-2017 End: 02-19-2017 Follow Up Appt 6 months Chante Iverson PA-C Work Phone: Start: 08-23-2016 End: 08-23-2016 Follow Up Appt 6 months Nikolas Sullivan Start: 08-23-2016 End: 08-23-2016 IRA Weems MD Start: 08-23-2016 End: 08-23-2016 Follow Up Appt 6 months Nikolas Sullivan Start: 08-23-2016 End: 08-23-2016 IRA Weems MD Start: 06-26-2016 End: 06-28-2016 Bilat Scrn Digital AND CAD Comments: See Note; NOTES: [facility] Imaging Services [address] [place] [address] Verdana 4d Bilat Scrn Digital AND CAD MR#: [id number] Acct: [id number] Name: CAT QUINTEROS Rep #: [id number] : 1945 F 70 From: Maurilio Villafuerte MD PCP: Cory Sim Status: REG CLI Study: Bilat Scrn Digital AND CAD Date of Exam: 06/26/16 Exam# [id number] Ordering Dr: Cory Sim MAMMOGRAPHY - BILATERAL SCREENING REASON FOR EXAM: Female, 70 years old. Routine annual screening examination. PERTINENT HISTORY: NO FM HX , GAIN 10#, OPEN HEART SX 6 YRS AGO, RT UOQ WORKED UP IN THE PAST TECHNIQUE: Digital bilateral breast jay (3D mammographic acquisition) in the CC and MLO projections. 2-D mediolateral oblique (MLO) and craniocaudad (CC) views of both breasts were obtained. CAD: Full Field Digital Mammography with Computer Added Detection was performed. COMPARISON: MG - Breast Bilateral - 09:46. MG - Breast Bilateral - 13:49 FINDINGS: Breast Composition: There are scattered areas of fibroglandular density. There are no dominant masses or suspicious calcifications. No other significant abnormalities are identified. HPBI/Bilat Scrn Digital AND CAD IMPRESSION: Stable bilateral screening mammogram. Yearly follow-up mammogram recommended. (A) ASSESSMENT CATEGORY: BIRADS Category 2: Benign. A letter regarding these results will be sent to the patient by the facility within 30 days. Approximately 10% of breast cancers are not detected by mammography. A normal mammogram should not delay biopsy of a clinically suspicious abnormality. [id number] Electronically Signed: Maurilio Villafuerte MD at 16:45 EDT Tel , Service support [phone], CC: Cory Sim Injection Molding Machine Setter: Signed Cory Sim Work Phone: Start: 06-18-2016 End: 06-18-2016 Carotid Duplex Ultrasound Comments: See Note; NOTES: [facility] Cardiovascular Services [address] [place] [address] Carotid Duplex Ultrasound 06/16/16 1110 MR#: [id number] Acct: [id number] Name: CAT QUINTEROS Rep #: [id number] : 1945 70 From: Freddy Antonio MD Attending Dr: Cory Sim Status: REG CLI Ordering Dr: Cory Sim Date: 06/16/16 Location: [facility] Sex: F C Admitted: Reason For Study: Carotid stenosis Rt. Velocities/BP Lt. Velocities/BP Prox CCA 99.1/21.7 cm/sec. Prox CCA 98.0/21.0 cm/sec. Mid CCA 105.0/27.0 cm/sec. Mid CCA 91.9/20.4 cm/sec. Dist CCA 78.6/21.7 cm/sec. Dist CCA 80.3/24.6 cm/sec. Prox ICA 81.7/34.6 cm/sec. Prox ICA 66.3/21.1 cm/sec. Mid ICA 65.0/22.2 cm/sec. Mid ICA 61.5/22.5 cm/sec. Dist ICA 68.1/23.1 cm/sec. Dist ICA 56.3/21.0 cm/sec. Rt. ICA/CCA = .78. Lt. ICA/CCA = .72. Prox ECA 76.4/13.3 cm/sec. Prox ECA 89.1/18.2 cm/sec. Rt. Vert. 51.0/17.6 cm/sec. Lt. Vert. 43.4/11.7 cm/sec. Right Extracranial There is intimal thickening but no significant atherosclerotic plaque noted in the right common carotid artery. There is intimal thickening but no significant atherosclerotic plaque noted in the right internal carotid artery. There is no significant atherosclerotic plaque noted in the right external carotid artery. Antegrade flow is noted in the right vertebral artery. Left Extracranial There is intimal thickening but no significant atherosclerotic plaque noted in the left common carotid artery. There is heterogeneous, smooth atherosclerotic plaque noted in the left internal carotid artery. There is no significant atherosclerotic plaque noted in the left external carotid artery. Antegrade flow is noted in the left vertebral artery. Procedure Carotid Duplex 31844. Exam performed in department. Interpretation Summary Mild (<50%) stenosis right extracranial internal carotid. Normal left extracranial internal carotid. Flow within the vertebral arteries is antegrade bilaterally. Ordering Physician: Cory Sim Performed By: Viry Flowers RVT 06/18/16 1758 Date Freddy Antonio MD CC: Cory Sim Date Dictated: 06/16/16 1110 Date Transcribed: 06/18/161757 Injection Molding Machine Setter: Signed Cory Sim Work Phone: Start: 03-23-2016 End: 03-23-2016 Venous Duplex Lower Extremity Comments: See Note; NOTES: [facility] Cardiovascular Services [address] [place] [address] Venous Duplex US, Unilateral 03/22/16 1138 MR#: [id number] Acct: [id number] Name: CAT QUINTEROS Rep #: [id number] : 1945 70 From: Ibrahima Pedraza MD Attending Dr: Cory Sim Status: REG CLI Ordering Dr: Cory Sim Date: 03/22/16 Location: [facility] Sex: F C Admitted: Reason For Study: Pain and Swelling RLE RIGHT LEFT GSV is normal. CFV is compressible, spontaneous, phasic , CFV is compressible, spontaneous, phasic, competent, and demonstrates normal competent and demonstrates normal augmentation. augmentation. FV is compressible, spontaneous, phasic, competent and demonstrates normal augmentation. POP V is compressible, spontaneous, phasic, competent and demonstrates normal augmentation. T/P Trunk is compressible. PTV is compressible. RT PerV is compressible. Procedure Exam performed in department. A preliminary report was called and/or faxed to Dr. Sim. Interpretation Summary Deep veins of the right lower extremity are patent and compressible segmentally. There is no evidence of right lower extremity deep vein thrombosis. Valvular competence appears intact within the proximal deep venous system on the right . The right greater saphenous vein appears patent and compressible segmentally. Ordering Physician: Cory Sim Referring Physician: Cory Sim Performed By: Jyoti Patiño, WHIT, RVT 03/23/16 1718 Date Ibrahima Pedraza MD CC: Cory Sim Date Dictated: 03/22/16 1138 Date Transcribed: 03/23/161714 Injection Molding Machine Setter: Signed Brittany Elkins Work Phone: Start: 03-23-2016 End: 03-24-2016 Dexa Bone Density Study (HP) Comments: See Note; NOTES: [facility] Imaging Services [address] [place] [address] Verdana 4d Dexa Bone Density Study () MR#: [id number] Acct: [id number] Name: CAT QUINTEROS Rep #: [id number] : 1945 F 70 From: Donovan Roche MD PCP: Cory Sim Status: [facility] Study: Dexa Bone Density Study () Date of Exam: 03/23/16 Exam# [id number] Ordering Dr: Cory Sim STUDY: DUAL ENERGY X-RAY ABSORPTIOMETRY / DXA REASON FOR EXAM: Female, 70 years old. Early menopause. TECHNIQUE: Bone Mineral Density (BMD) measurements of lumbar spine and bilateral hips were obtained. COMPARISON: Comparison is made with prior study dated July 18, 2011. FINDINGS: Lumbar Spine (L1-L4): g/cm2 (1.159) / T-score (-0.1) / Z-score (1.6) Findings are suggestive of normal bone density with a low fracture risk. Left Femur Total: g/cm2 (1.019) / T-score (0.1) / Z-score (1.5) Left Femoral Neck: g/cm2 (0.921) / T-score (-0.8) / Z-score (0.8) Right Femur Total: g/cm2 (0.948) / T-score (-0.5) / Z-score (1.0) Right Femoral Neck: g/cm2 (0.921) / T-score (-0.8) / Z-score (0.8) The T-Scores on the most recent prior examination were: Lumbar Spine (L1-L4): There has been improvement of bone density since the previous examination. Left Femur Total: which represents an improvement of 4.6%. Right Femur Total: which represents a worsening of 0.4%. IMPRESSION: The patient is considered normal as outlined below according to World Jose Organization (WHO) criteria with a low fracture risk. There has been improvement of bone density since the previous examination. Reference Information: The T-score is the number of standard deviations above or below the standard which is normal for young adults at their peak bone mineral density. The World Health Organization (WHO) interprets the T-scores as follows: Above -1 Normal bone density Between -1 and -2.5 Osteopenia Equal to / or below -2.5 Osteoporosis As a practical clinical guideline, osteopenia may be graded as follows: Mild -1 through -1.5 Moderate -1.6 through -2.0 Severe -2.1 through -2.4 The Z-score is the number of standard deviations above or below age-matched controls. A Z-score of less than -1.5 would be considered abnormal. References: 1. NIH Osteoporosis and Related Bone Diseases http://www.osteo.org 2. International Society for Clinical Densitometry http://www.iscd.org 3. National Osteoporosis Foundation http://www.nof.org Electronically Signed: Donovan Roche MD at 8:46 EDT Tel [phone], Service support [phone], CC: Cory Sim Injection Molding Machine Setter: Signed Cory Sim Work Phone: Start: 03-22-2016 End: 03-22-2016 Foot min 3 Views Comments: See Note; NOTES: [facility] Imaging Services [address] [place] [address] Verdana 4d Foot min 3 Views MR#: [id number] Acct: [id number] Name: CAT QUINTEROS Rep #: [id number] : 1945 F 70 From: Mor Rhodes MD PCP: Cory Sim Status: REG CLI Study: Foot min 3 Views Date of Exam: 03/22/16 Exam# [id number] Ordering Dr: Cory Sim STUDY: X-RAY - RIGHT FOOT CLINICAL: Female, 70 years old. Pain and swelling. TECHNIQUE: 3 view(s) of the foot. COMPARISON: None. FINDINGS: Normal talus, calcaneus, and tarsal bones. Normal visualized subtalar, talonavicular, calcaneocuboid, tarsal and tarsometatarsal articulations. Normal metatarsi. Normal metatarsophalangeal joint of the great toe. Normal tibial and fibular sesamoid bones. Normal interphalangeal joint of the great toe. Normal phalanges of the great toe. Normal second through fifth metatarsophalangeal joints. Normal interphalangeal joints and phalanges of the lesser toes. The soft tissue structures are unremarkable. IMPRESSION: Normal x-ray examination of the foot. Electronically Signed: Mor Rhodes MD at 22:03 EDT , Service support [phone], RAD/Foot min 3 Views IMPRESSION: Normal x-ray examination of the foot. Electronically Signed: Mor Rhodes MD at 22:03 EDT , Service support [phone], CC: Cory Sim Injection Molding Machine Setter: Signed Cory Sim Work Phone: Start: 01-19-2016 End: 01-19-2016 LISSY Iverson PA-C Work Phone: Start: 01-19-2016 End: 01-19-2016 Follow Up Appt 6 months Chante Iverson PA-C Work Phone: Start: 01-19-2016 End: 01-31-2017 Follow Up Appt Other Chante Iverson PA-C Work Phone: Start: 01-19-2016 End: 01-19-2016 Dietary management education, guidance, and counseling Triny Kraft Start: 01-19-2016 End: 01-19-2016 LISSY Iverson PA-C Work Phone: Start: 01-19-2016 End: 01-19-2016 Follow Up Appt 6 months Chante Iverson PA-C Work Phone: Start: 01-19-2016 End: 01-31-2017 Follow Up Appt Other Chante Iverson PA-C Work Phone: Start: 11-12-2015 End: 11-13-2015 Abdomen/Pelvis WITH Contrast Comments: See Note; NOTES: [facility] Imaging Services [address] [place] [address] Verdana 4d Abdomen/Pelvis WITH Contrast MR#: [id number] Acct: [id number] Name: CAT QUINTEROS Rep #: [id number] : 1945 F 70 From: Carlos Lee MD PCP: Sydnee Jane MD Status: REG CLI Study: Abdomen/Pelvis WITH Contrast Date of Exam: 11/12/15 Exam# [id number] Ordering Dr: Sydnee Jane MD STUDY: CT ABDOMEN AND PELVIS WITH CONTRAST REASON FOR EXAM: Female, 70 years old. Diarrhea. Mid abdominal pain for 3 months. Prior appendectomy, cholecystectomy, left oophorectomy and tubal ligation. RADIATION DOSAGE (If Supplied By Facility): CTDIvol = ( 17.14 ) mGy, DLP = ( 1780.10 ) mGycm TECHNIQUE: Transaxial images were obtained from the dome of the diaphragm to the symphysis pubis with oral contrast. 100ML ml of Isovue 300 contrast was administered. Sagittal and coronal images were reconstructed. COMPARISON: 05/27/14. 08/16/12. FINDINGS: The visualized lung bases are unremarkable. The visualized portions of the heart are within normal limits. There are coronary artery calcifications. There are sternotomy wires. There is a small cyst in the right lobe of the liver. The gallbladder is nonvisualized, consistent with given history of cholecystectomy. Normal spleen. Normal pancreas. Normal bilateral adrenal glands. There is a 2.5 cm right renal cortical cyst. There is a 6.5 mm nonobstructive right lower pole renal calculus. Otherwise normal right kidney. There is a small low-attenuation cyst arising from the anterior cortex of the upper pole of the left kidney. There is a 1.8 cm exophytic structure arising from the posterior upper pole of the left kidney with attenuation of 40 4HU on both early and delayed images. This structure measured 1.5 cm on the 2011 exam, at which time it measured 52H U attenuation. This probably represents a benign hyperdense cyst. Otherwise normal left kidney. Normal visualized stomach. Normal small intestine. There are multiple colonic diverticula consistent with diverticulosis. There is mild infiltration of fat around the sigmoid colon, not significantly different from previous studies. This may represent residual changes from previous episodes of acute diverticulitis. There is no current evidence for acute diverticulitis. The appendix is visualized and appears the appendix is not visualized, consistent with given history of prior appendectomy. Normal. There is atherosclerotic calcification of the abdominal aorta with elongation and tortuosity, but without a demonstrated aneurysm. Normal inferior vena cava. Normal retroperitoneum. Assessment of the the urinary bladder is limited by nondistention. There is a right internal hernia which contains fat, but no bowel. There are multilevel degenerative changes in the visualized spine. IMPRESSION: Colonic diverticulosis. Mild fat infiltration around portions of the sigmoid colon is also present on previous exams and probably represents residual changes due to previous acute diverticulitis. Mild recurrent acute sigmoid diverticulitis cannot be excluded. There is no demonstrated focal colonic mural thickening, abscess, or free intraperitoneal air. Previous cholecystectomy and appendectomy. Small nonobstructive right renal calculus. No demonstrated ureteral calculus or hydronephrosis. Small liver cyst. Small bilateral renal cysts, including a hyperdense left upper pole renal cyst. Atherosclerosis. Electronically Signed: Carlos Lee MD at 7:00 EST , Service support [phone], CC: Sydnee Jane MD Injection Molding Machine Setter: Signed Sydnee Jane Work Phone: Start: 07-20-2015 End: 07-21-2015 Documentation of current medications Abel Weems MD Start: 07-20-2015 End: 07-20-2015 Follow Up Appt 6 months Nikolas Sullivan Start: 07-20-2015 End: 07-20-2015 MMM Abel Weems MD Start: 07-20-2015 End: 07-21-2015 Pedal pulse taking Abel Weems MD Start: 07-20-2015 End: 07-21-2015 Documentation of current medications Abel Weems MD Start: 07-20-2015 End: 07-20-2015 Follow Up Appt 6 months Nikolas Sullivan Start: 07-20-2015 End: 07-20-2015 MMM Abel Weems MD Start: 07-20-2015 End: 07-21-2015 Pedal pulse taking Abel Weems MD Start: 06-23-2015 End: 06-23-2015 Bilat Scrn Digital AND CAD Comments: See Note; NOTES: [facility] Imaging Services [address] [place] [address] Breast Imaging Report MR#: [id number] Acct: [id number] Name: CAT QUINTEROS Rep #: [id number] : 1945 F 69 From: Donovan Roche MD PCP: Sydnee Jane MD Status: REG CLI Study: Bilat Scrn Digital AND CAD Date of Exam: 06/23/15 Exam# [id number] Ordering Dr: Sydnee Jane MD MAMMOGRAPHY - BILATERAL SCREENING REASON FOR EXAM: Female, 69 years old. Routine annual screening examination. PERTINENT HISTORY: Non-contributory. TECHNIQUE: Digital examination. Mediolateral oblique (MLO) and craniocaudad (CC) views of both breasts were obtained. CAD: CAD was performed on this study. COMPARISON: Comparison is made with prior study dated June 22, 2014 and June 20, 2013. FINDINGS: Breast Composition: The breasts are almost entirely fatty. There are no dominant masses or suspicious calcifications. No other significant abnormalities are identified. There has been no significant change since the prior study. IMPRESSION: Stable bilateral screening mammogram. Yearly follow-up recommended. (A) ASSESSMENT CATEGORY: BIRADS Category 1: Negative. A letter regarding these results will be sent to the patient by the facility within 30 days. Approximately 10% of breast cancers are not detected by mammography. A normal mammogram should not delay biopsy of a clinically suspicious abnormality. Electronically Signed: Donovan Roche MD at 10:07 EDT Tel [phone], Service support [phone], CC: Sydnee Jane MD Injection Molding Machine Setter: Signed Sydnee Jane Work Phone: Start: 01-06-2015 End: 01-06-2015 LISSY Iverson PA-C Work Phone: Start: 01-06-2015 End: 01-07-2015 Documentation of current medications Chante Iverson PA-C Work Phone: Start: 01-06-2015 End: 01-06-2015 Follow Up Appt 6 months Chante Iverson PA-C Work Phone: Start: 01-06-2015 End: 01-07-2015 Pedal pulse taking Chante Iverson PA-C Work Phone: Start: 01-06-2015 End: 01-06-2015 LISSY Iverson PA-C Work Phone: Start: 01-06-2015 End: 01-07-2015 Documentation of current medications Chante Iverson PA-C Work Phone: Start: 01-06-2015 End: 01-06-2015 Follow Up Appt 6 months Chante Iverson PA-C Work Phone: Start: 01-06-2015 End: 01-07-2015 Pedal pulse taking Chante Iverson PA-C Work Phone: Start: 12-21-2014 End: 12-30-2014 Nuclear Stress Test - Treadmil Comments: See Note; NOTES: [facility] Imaging Services [facility] [place] [address] Nuclear Medicine Report MR#: [id number] Acct: [id number] Name: CAT QUINTEROS Rep #: [id number] : 1945 F 69 From: Abel Weems MD PCP: Sydnee Jane MD Status: REG CLI Study: Nuclear Stress Test - Treadmwa Date of Exam: 12/21/14 Exam# [id number] Ordering Dr: Chante Hernandez EXERCISE MYOCARDIAL PERFUSION STRESS TEST REASON FOR EVALUATION: This is a lady with a history of coronary artery disease status post coronary artery bypass surgery. MEDICATIONS: Metoprolol. BASELINE INFORMATION: Resting EKG demonstrates sinus bradycardia with a rate of 54 beats per minute. Resting blood pressure was 160/94. T-wave inversion noted in lead I and aVL. STRESS TEST: The patient exercised according to the regular Farhat protocol for a total duration of 7 minutes and 31 seconds. The maximum heart rate attained was 136 beats per minute, which was 89% of maximum predicted heart rate. The maximum workload attained was 9.3 METS. The patient maintained sinus rhythm throughout the recording with T-wave inversions noted in lead I and aVL. There was mild ST depression less than 1 mm in leads II, III, and aVF during exercise, which did not meet the criteria for ischemia. The resting blood pressure was 160/94. Peak blood pressure 180/98. No clinical angina was noted. The test was terminated due to leg fatigue. No arrhythmias were noted. MYOCARDIAL PERFUSION PROTOCOL: 10.7 mCi of Sestamibi was injected at rest. The patient exercised according to the regular Farhat protocol for 7 minutes and 31 seconds attaining 89% of maximum predicted heart rate and a workload of 9.3 METS. At peak exercise, 32.1 mCi of Sestamibi was injected. Stress images were obtained. Stress and rest images were reconstructed and compared in the short axis, vertical long, and horizontal long axes. Gated images were also obtained. PERFUSION SPECT ANALYSIS: Review of the images demonstrated normal uptake of tracer noted in all areas of the myocardium. The resting images similarly demonstrated normal uptake of tracer noted in all areas of the myocardium. No obvious areas of reversibility are noted to suggest ischemia or previous infarcts. GATED SPECT ANALYSIS: The gated ejection fraction is noted to be 74% with no wall motion abnormalities present. CONCLUSION 1. Normal exercise myocardial perfusion test at a moderate workload. 2. No ischemia noted. 3. No arrhythmias present. CC: Sydnee Jane MD; Chante Hernandez Injection Molding Machine Setter: XANDER Valero Cory Sim Start: 12-15-2014 End: 12-15-2014 Follow up Appt 3 weeks Chante Iverson PA-C Work Phone: Start: 12-15-2014 End: 12-15-2014 Follow Up Appt Other Chante Iverson PA-C Work Phone: Start: 12-15-2014 End: 12-15-2014 MMM KIM Granados-Martin Work Phone: Start: 12-15-2014 End: 12-21-2014 Nuclear stress test -exercise Chante Iverson PA-C Work Phone: Start: 12-15-2014 End: 12-15-2014 Follow up Appt 3 weeks Chante Iverson PA-C Work Phone: Start: 12-15-2014 End: 12-15-2014 Follow Up Appt Other Chante Iverson PA-C Work Phone: Start: 12-15-2014 End: 12-15-2014 MMNikolas Chante Iverson PA-C Work Phone: Start: 12-15-2014 End: 12-21-2014 Nuclear stress test -exercise KIM Granados-Martin Work Phone: Start: 06-22-2014 End: 06-22-2014 Bilat Scrn Digital & CAD Comments: See Note; NOTES: [facility] Imaging Services [address] [place] [address] Breast Imaging Report MR#: [id number] Acct: [id number] Name: CAT QUINTEROS Rep #: [id number] : 1945 F 68 From: Donovan Roche MD PCP: Sydnee Jane MD Status: REG CLI Exam# [id number] Ordering Dr: Sydnee Jane MD MAMMOGRAPHY - BILATERAL SCREENING REASON FOR EXAM: Female, 68 years old. Routine annual screening examination. PERTINENT HISTORY: Non-contributory. TECHNIQUE: Digital examination. Mediolateral oblique (MLO) and craniocaudad (CC) views of both breasts were obtained. CAD: CAD was performed on this study. COMPARISON: Comparison is made with prior study dated June 20, 2013 and June 06, 2012. FINDINGS: Breast Composition: The breasts are almost entirely fatty. There are no dominant masses or suspicious calcifications. Stable 6 mm nodule in the upper outer quadrant of the right breast. No other significant abnormalities are identified. There has been no significant change since the prior study. IMPRESSION: Stable bilateral screening mammogram. Yearly follow-up recommended. (A) ASSESSMENT CATEGORY: BIRADS Category 2: Benign finding(s). A letter regarding these results will be sent to the patient by the facility within 30 days. Approximately 10% of breast cancers are not detected by mammography. A normal mammogram should not delay biopsy of a clinically suspicious abnormality. Electronically Signed: Donovan Roche MD at 14:40 EDT Tel [phone], Service support [phone], CC: Sydnee Jane MD Injection Molding Machine Setter: Signed Sydnee Jane Work Phone: Start: 06-19-2014 End: 06-19-2014 Echocardiogram Complete Comments: See Note; NOTES: [facility] Cardiovascular Services [address] [place] [address] Echo Complete 06/19/14 1259 MR#: [id number] Acct: [id number] Name: CAT QUINTEROS Rep #: [id number] : 1945 68 From: Abel Weems MD Attending Dr: Faustina FONTANEZ,Abel Status: REG CLI Ordering Dr: Abel Weems MD Date: 06/19/14 Location: [facility] Sex: F C Admitted: Procedure This was a 2D Doppler, Color Flow transthoracic echocardiogram. Exam performed in department. Left Ventricle Normal LV size. Sigmoid septum. Left ventricular systolic function is normal. The estimated ejection fraction is 65 %. No regional wall motion abnormalities noted. Right Ventricle Normal RV size. Normal systolic function. Atria Normal left atrium. Normal right atrium. Mitral Valve Normal mitral valve. Tricuspid Valve Normal tricuspid valve. Mild (1+) tricuspid valve insufficiency. Pulmonary artery systolic pressure is 28 mmHg. Aortic Valve Trisinus/trileaflet aortic valve. Mild focal aortic valve calcification. Pulmonic Valve Normal pulmonic valve. Great Vessels Normal aortic root. The pulmonary artery is normal size. Pericardium/Pleural No pericardial effusion. LVIDd: 3.8 cm IVSd: 1.8 cm Ao root diam: 2.6 cm LAV(MOD-bp): 40.9 ml LVIDs: 2.1 cm LVPWd: 1.3 cm Ao root area: 5.3 cm2 LAV(MOD-bp) Indexed: 21.9 ml/m2 RVDd: 3.2 cm FS: 44.7 % LA dimension: 3.7 cm LAV(MOD-sp2): 40.6 ml LAV(MOD-sp4): 41.0 ml LA A4 area: 16.3 cm2 RA A4 area: 11.8 cm2 MV E max phuc: Lat Peak E' Phuc: Med Peak E' Phuc: Ao V2 max: 72.7 cm/sec 8.5 cm/sec 4.8 cm/sec 166.5 cm/sec MV A max phuc: Ao max P.1 mmHg 99.1 cm/sec MV E/A: 0.73 LV V1 max: 122.4 cm/sec TR max phuc: 243.5 cm/sec E/E' lat: 8.5 E/ E' med: 15.0 LV V1 max P.0 mmHg TR max P.7 mmHg Interpretation Summary Normal LV size. Left ventricular systolic function is normal. The estimated ejection fraction is 65 %. Mild (1+) tricuspid valve insufficiency. Pulmonary artery systolic pressure is 28 mmHg. Ordering Physician: Abel Weesm Referring Physician: Sydnee Jane M.D. Performed By: Viry Flowers RVT 06/19/141935 Date Abel Weems MD CC: Abel Weems MD; Sydnee Jane MD Date Dictated: 06/19/14 1259 Date Transcribed: 06/19/141935 Injection Molding Machine Setter: Signed Cory Sim Start: 06-18-2014 End: 06-18-2014 Chest PA and Lateral Comments: See Note; NOTES: [facility] Imaging Services [address] [facility] [facility] [place] [address] Radiology Report MR#: [id number] Acct: [id number] Name: CAT QUINTEROS Rep #: [id number] : 1945 F 68 From: Nelson Vazquez DO PCP: Sydnee Jane MD Status: REG CLI Study: Chest PA and Lateral Date of Exam: 06/18/14 Exam# [id number] Ordering Dr: Sydnee Jane MD STUDY: X-RAY CHEST REASON FOR EXAM: Female, 68 years old. Preop TECHNIQUE: Frontal and lateral views COMPARISON: September 08, 2011 FINDINGS: Sternotomy wires over the mediastinum. The lungs are clear and expanded. There is no demonstrated pleural abnormality. Normal size heart. Normal mediastinum and jimbo. Normal visualized pulmonary arteries. Mild calcified aortic arch and descending thoracic aorta. Normal visualized thoracic spine. Normal visualized ribs, clavicles, and shoulders. There is no demonstrated abnormality of the visualized soft tissue structures of the upper abdomen. IMPRESSION: Normal x-ray examination of the chest. Electronically Signed: Nelson Vazquez DO at 21:26 EDT Tel [phone], Service support [phone], CC: Sydnee Jane MD Injection Molding Machine Setter: Signed Sydnee Jane Work Phone: Start: 06-17-2014 End: 06-17-2014 Ecg routine ecg w/least 12 lds w/i&r Abel Weems MD Start: 06-17-2014 End: 06-22-2014 Echocardiography Abel Weems MD Start: 06-17-2014 End: 06-17-2014 Follow Up Appt 6 months Nikolas Sullivan Start: 06-17-2014 End: 06-17-2014 MMM Abel Weems MD Start: 06-17-2014 End: 06-22-2014 Echocardiography Abel Weems MD Start: 06-17-2014 End: 06-17-2014 Electrocardiogram, complete Abel Weems MD Start: 06-17-2014 End: 06-17-2014 Follow Up Appt 6 months Nikolas Sullivan Start: 06-17-2014 End: 06-17-2014 MMM Abel Weems MD Start: 06-17-2014 End: 08-23-2016 Preoperative cardiovascular examination PRE-OPERATIVE CARDIOVASCULAR EXAMINATION Triny Kraft Start: 05-27-2014 End: 05-27-2014 Abdomen/Pelvis without Cont Comments: See Note; NOTES: [facility] Imaging Services [address] [place] [address] CAT Scan Report MR#: [id number] Acct: [id number] Name: CAT QUINTEROS Rep #: [id number] : 1945 F 68 From: Donovan Roche MD PCP: Sydnee Jane MD Status: REG CLI Study: Abdomen/Pelvis without Cont Date of Exam: 05/27/14 Exam# [id number] Ordering Dr: Dunia Bruno DO STUDY: CT ABDOMEN AND PELVIS WITHOUT CONTRAST REASON FOR EXAM: Female, 68 years old. Right and left lower quadrant pain. RADIATION DOSAGE (If Supplied By Facility): CTDIvol = ( 14.06 ) mGy, DLP = ( 709.08 ) mGycm TECHNIQUE: Transaxial images were obtained from the dome of the diaphragm to the symphysis pubis without oral contrast, and without intravenous contrast. Sagittal and coronal images were reconstructed. COMPARISON: Comparison is made with prior examination dated August 16, 2012. FINDINGS: The visualized lung bases are unremarkable. Coronary artery calcification. Small calcification in the peripheral portion of the right lobe of the liver just deep to the right hemidiaphragm. The patient is status post cholecystectomy. Normal spleen. Normal pancreas. Normal bilateral adrenal glands. Once again, 3 small calculi are seen in the lower pole calyx of the right kidney. The largest measures 4 mm. There is a 1.7 cm cyst in the superior lateral portion of the right kidney. Stable 1.1 cm cyst in the posterior medial aspect of the upper pole of the left kidney. Normal visualized stomach. Normal small intestine. There are multiple colonic diverticula consistent with diverticulosis. The patient is status post appendectomy. There is diffuse atherosclerotic calcification of the abdominal aorta and its major visceral branches, without a demonstrated aneurysm. Normal inferior vena cava. Normal retroperitoneum. Normal urinary bladder. A bladder stimulator device is seen with the battery pack overlying the right buttock. The patient is status post left oophorectomy. There is evidence of prior bilateral tubal ligation. Normal abdominal wall. Disc space narrowing with anterior spondylosis at the L2-L3 level. IMPRESSION: Sigmoid diverticulosis. Stable bilateral renal cysts and nonobstructive intrarenal calculi in the lower pole of the right kidney. Electronically Signed: Donovan Roche MD at 13:45 EDT Tel [phone], Service support [phone], CC: Sydnee Jane MD; Dunia Bruno DO Injection Molding Machine Setter: Signed Dunia Bruno Work Phone: Start: 10-01-2013 End: 10-01-2013 Mylaping Ríos Plan of Treatment Date Care Activity Detail Author Start: 11-19-2020 COVID-19 VACCINE (2 of 2 - Moderna series) COVID-19 VACCINE (2 of 2 - Moderna series) [facility] Start: 05-18-2020 Influenza vaccination INFLUENZA (#1) [facility] Start: 02-04-2018 End: 08-14-2017 *Hepatic Function Panel *Hepatic Function Panel [facility] Work Phone: Start: 02-04-2018 End: 08-14-2017 Lipid panel [AGGREGATE] *Lipid Profile CC PCP [facility] Work Phone: Start: 08-30-2017 End: 08-30-2017 Appointment Appointment [facility] Work Phone: Start: 02-19-2017 End: 02-19-2017 Appointment Appointment [facility] Work Phone: Start: 02-19-2017 End: 08-06-2017 *Hepatic Function Panel *Hepatic Function Panel [facility] Work Phone: Start: 02-19-2017 End: 02-19-2017 NUCLEAR POWER PLANT ENGINEER NUCLEAR POWER PLANT ENGINEER [facility] Work Phone: Start: 02-19-2017 End: 02-19-2017 Follow Up Appt 6 months Follow Up Appt 6 months [facility] Work Phone: Start: 02-19-2017 End: 08-06-2017 Lipid panel [AGGREGATE] *Lipid Profile CC PCP [facility] Work Phone: Start: 02-19-2017 End: 02-19-2017 *Hepatic Function Panel *Hepatic Function Panel [facility] Work Phone: Start: 02-19-2017 End: 02-19-2017 NUCLEAR POWER PLANT ENGINEER NUCLEAR POWER PLANT ENGINEER [facility] Work Phone: Start: 02-19-2017 End: 02-19-2017 Follow Up Appt 6 months Follow Up Appt 6 months [facility] Work Phone: Start: 02-19-2017 End: 02-19-2017 Lipid panel [AGGREGATE] *Lipid Profile CC PCP [facility] Work Phone: Start: 09-14-2016 Procedure Education Eprescribed prescriptions (G8553) [facility] Work Phone: Start: 08-23-2016 End: 08-23-2016 Follow Up Appt 6 months Follow Up Appt 6 months [facility] Work Phone: Start: 08-23-2016 End: 08-23-2016 MMM MMM [facility] Work Phone: Start: 08-23-2016 End: 08-23-2016 Follow Up Appt 6 months Follow Up Appt 6 months [facility] Work Phone: Start: 08-23-2016 End: 08-23-2016 MMM MMM [facility] Work Phone: Start: 06-15-2016 Procedure Education Eprescribed prescriptions (G8553) [facility]; [facility] Work Phone: Start: 06-15-2016 Provider Instructions for Treatment Follow up in 3 months [facility] Work Phone: Start: 06-15-2016 Urine albumin quantitative MICROALBUMIN: CREATININE RATIO (48367) AND (12583) [facility]; [facility] Work Phone: Start: 03-14-2016 Procedure Education Eprescribed prescriptions (G8553) [facility]; [facility] Work Phone: Start: 03-14-2016 Provider Instructions for Treatment Follow up in 3 months [facility]; [facility] Work Phone: Start: 03-14-2016 TSH Qn TSH (THYROID STIMULATING HORMONE) (22809) [facility]; [facility] Work Phone: Immunizations Immunization Date Immunization Notes Care Provider Catherine hawley 09-17-2013 pneumococcal conjuga te vaccine, 13 valent Cory Alam [facility] Work Phone: 11-27-2011 varicella zoster imm une globulin Cory Alanikolas [facility]; [facility] Work Phone: 09-17-2011 zoster vaccine, live Cory Alam [facility]; [facility] Work Phone: 06-11-2009 influenza, seasonal, injectable Cory Alam [facility]; [facility] Work Phone: 09-17-2006 pneumococcal polysaccharide vaccine, 23 valent Cory Alam [facility]; [facility] Work Phone: Payers Date Payer Category Payer Medicare [employer] MEDICARE A ETNA MEDICARE PPO [id number] 2020-Present PPO [id number] Unknown Social History Date Type Detail Facility Start: 01-11-2012 End: 11-11-2020 Tobacco smoking status NHIS Never smoker [facility] Start: 01-11-2012 End: 11-11-2020 Alcohol intake Current non-drinker of alcohol (finding) [facility] Start: 1945 Sex Assigned At Not on file C [facility] Start: 11-11-2020 Tobacco use and exposure Never used [facility] Exposure to SARS-CoV-2 (event) Not sure [facility] Alcohol Use Alcohol Use [facility] Work Phone: Summary Purpose Family History No Family History Records FoundUnknown Family Member Name Dates Details Father Comments:Colon cancer, CHF d eceased age 84 Status:Active Mother Comments:HTN, high cholester ol Status:Active Advance Directives No Advanced Directives Records FoundNo Advanced Directives Records Found History of Present Illness * Randy Powers - 11/11/2020 8:45 AM EST Patient ID: Cat Quinteros is a 75 year old female. CC: Consultation requested by Rolan Temple MD for evaluation of: Patient presents with: Left Knee - New Right Knee - New HPI: Cat Quinteros is a 75 year old female who presents with a long history of activity-related Bilateral knee pain. The patient denies specific injury or acute precipitating event. The pain is described as dull aching and sharp shooting pain and is present in thelateral regions of the knee. The patient does not require ambulatory aids. The patient does have difficulty ascending and descending stairs as well as getting out of a chair. The pain is to the point where it is adversely affecting activities of daily living. Previous treatment has consisted of right TKA done in 1993 followed by secondary procedure in , unclear what this procedure was. She had left knee surgery done in the as well. She has had chronic stiffness of the right knee since it was replaced. She remains very active working out 4 days a weeek. The patient is referred for orthopedic evaluation and management. Pain Assessment The following portions of the patient's history were reviewed and updated as appropriate: allergies, current medications, past family history, past medical history, past social history, past surgicalhistory and problem list. PAST MEDICAL HISTORY Diagnosis Date Abdominal pain, unspecified site lower Abdominal pain, unspecified site Diarrhea Diverticulosis of colon (without mention of hemorrhage) Embolism and thrombosis of unspecified site Essential hypertension, benign Family history of malignant neoplasm of gastrointestinal tract Internal hemorrhoids without mention of complication Other and unspecified hyperlipidemia PMH - PAST MEDICAL HISTORY OF low back pain Type II or unspecified type diabetes mellitus without mention of complication, uncontrolled PAST SURGICAL HISTORY Procedure Laterality Date APPENDECTOMY CABG (1) VEIN GRAFT & ARTERIAL GRAFT 12/2008 1stent (medicated) COLONOSCOP W/ OR W/O [facility] SPEC 1992 Colonoscopy COLONOSCOP W/ OR W/O [facility] SPEC 08/10/08 COLONOSCOPY W/BX 11/12/08 Dejesus-colonic diverticulosis EGD W/O [facility] SPECIMEN W/BX 11/12/08 HH,esophagitis,gastritis LAP CHOLECYSTECT/CHOLANGIOGRAPHY 12/02/08 AND UMBILICAL HERNIA PAST SURGICAL HISTORY OF removal of left ovary PAST SURGICAL HISTORY OF removal benign tumor behine right ear PAST SURGICAL HISTORY OF left knee rebuilt PAST SURGICAL HISTORY OF right knee relaced PAST SURGICAL HISTORY OF mass removed right neck ROS FAMILY HISTORY Problem Relation Age of Onset Colon Cancer Father Coronary Artery Disease Father Heart Mother Social History Tobacco Use Smoking status: Never Smoker Smokeless tobacco: Never Used Substance Use Topics Alcohol use: No Drug use: Never Current Outpatient Medications Medication Sig Dispense Refill Bifidobacterium Infantis (ALIGN) 4 mg ORAL Cap Take by mouth once daily. PLAVIX 75 mg ORAL tablet IMIPRAMINE HCL 25 mg ORAL tablet LISINOPRIL 5 mg ORAL tablet JANUVIA 100 mg ORAL tablet SIMVASTATIN 80 mg ORAL tablet NIASPAN 500 mg ORAL tablet aspirin 81 mg ORAL chewable tablet Take 1 tablet by mouth once daily. 0 nitroglycerin (NITRO-DUR) 0.1 mg/hr TRANSDERM. Apply 1 Patch as directed once daily. 0 metoprolol tartrate, short acting, 25 mg ORAL tablet Take 1 tablet by mouth twice daily. 0 Yilsudnwkfnew-Jxflpvkt-Yrhjyt (CENTRUM SILVER) ORAL Tab Take one(1) tablet daily. 0 No current facility-administered medications for this visit. ALLERGIES Allergen Reactions Codeine GI Upset Sulfa (Sulfonamide * Rash ACTIVE PROBLEM LIST Diarrhea Loss of Weight HIATAL HERNIA GASTRITIS ANTRAL( W/O Hemorrhage) DIVERTICULOSIS COLON - NO HEMORRHAGE Abdominal Pain, Unspecified Site Persistent Vomiting BILIARY DYSKINESIA Abnormal Mammogram, Unspecified Objective: On physical examination, the patient is a well appearing female in no respiratory distress. The patient is awake, alert and oriented to person, place and time. Body mass index is 25.15 kg/m . Examination of the patient s gait finds it to be antalgic, steady, and well balanced. Inspection ofthe bilateral lower extremities does not demonstrate color, temperature or trophic changes. There is satisfactory alignment and no asymmetry. Examination of theLeft knee finds mild intra-articular effusion. There is significant fixed valgus deformity. The skin is noted to be intact. There is no lymphadenopathy. There is tenderness to palpation in the lateral portion of the knee Range of motion is 5-110 degrees. There is satisfactory varus/valgus stability. There is no midflexion instability. Maryjo test is negative. There is no calf tenderness. There is no evidence of distal neurovascular compromise. Examination of the Right knee finds no intra-articular effusion. There is no varus deformity. The skin is noted to be intact. There is no lymphadenopathy. There is no tenderness to palpation in the medial and lateral portion of the knee Range of motion is 0-75 degrees. There is satisfactory varus/valgus stability. There is no midflexion instability. Maryjo test is negative. There is no calf tenderness. There is no evidence of distal neurovascular compromise. Examination of the bilateral hips exhibits physiologic range of motion without difficulty, equal leg lengths, no pain with resisted hip flexion and no tenderness to palpation over greater trochanters. Further examination of the bilateral lower extremities finds satisfactory ankle dorsiflexion and plantar flexion strength. Sensation is intact to light touch distally. Distal pulses are palpable. Thefeet are warm and viable and there is brisk capillary refill. [place] Knee Score: see report Radiographs: Radiographs are reviewed from office today to include right and left knee PA flexion, lateral and Merchant views. Per my interpretation, these show bone on bone DJD of the left knee with valgus deformity. Right TKA without obvious loosening in somewhat valgus alignment. Assessment: The primary encounter diagnosis was Status post total right knee replacement. Diagnoses of Postoperative stiffness of total knee replacement, initial encounter ([facility]), Other secondary osteoarthritis of left knee, and Acquired valgus deformity of knee, left were also pertinent to this visit. Plan: The clinical and radiographic findings as well as a risks, benefits and alternatives of treatment have been reviewed in detail with the patient. We had a long discussion today regarding non operativeand operative treatment of her left knee DJD and right knee stiffness. She would like to continue with non operative treatment for now consisting of exercises and occasional tylenol. Improving her ROM on the right knee would require complex revision surgery with unpredictable improvement in her flexion ROM due to the chronicity of her contracture and stiffness. For pain management purposes they may take OTC NSAIDs such as Advil or Aleve, and Tylenol if tolerated and if the patient knows of no allergies or contraindications. The risks and complications of these medications were discussed. The patient understands that if they are currently taking a NSAIDs or are prescribed one in the future they should not take Advil, Aleve, ibuprofen, naproxen or other OTC NSAIDs. They were also told that if any unusual symptoms develop, that the medication should be stopped immediately and that their primary care physician as well as our office should be notified. 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 They are aware of the potential risks and side effects of this medication as well as the expected benefits, and wishes to proceed with its use. She will return if she would like to discuss left knee injections. The patient will return in as needed to assess their response to the above treatment plan, sooner if there are questions or problems. * Nakita [employer]) - 11/11/2020 8:27 AM EST No injury, left kneerebuilt 1993 Right knee replaced 1998 no injuryREVIEW OF SYSTEMS: GENERAL: Well developed, well nourished. No acute distress PAIN: Pain 3-4/10 CARDIOVASCULAR: Negative for chest pain, leg swelling and palpations. MSK: Positive for joint swelling SKIN: Negative for lesions, rash, itching, metal sensitivity NEURO: Negative for seizure, trauma, numbness/tingling of extremities. ENDOCRINE: Negative for diabetic associated symptoms HEMATOLOGY: Negative for excessive bleeding, clots, bleeding disorders. documented in this encounter Assessments Diagnosis Status post total right knee replacement- Primary Postoperative stiffness of total knee replacement, initial encounter ([facility]) Other secondary osteoarthritis of left knee Acquired valgus deformity of knee, left Instructions Name Dates Details How to access [employer] online - Detail Indication:Current nonsmoker (Renamed from Current non-smoker) Start:14-Sep-2016 Instruction Type:Patient Education Patient Instructions Indication:Current nonsmoker (Renamed from Current non-smoker) Start:14-Sep-2016 Instruction Type:Provider Instructions for Treatment How to access health informa tion online Indication:Diabetes mellitus type II, controlled Start:15-Jun-2016 Instruction Type:Patient Education How to access health informa tion online - Detail Indication:Diabetes mellitus type II, controlled Start:15-Jun-2016 Instruction Type:Patient Education Patient Instructions Indication:Diabetes mellitus type II, controlled Start:15-Jun-2016 Instruction Type:Provider Instructions for Treatment How to access health informa tion online Indication:Diabetes mellitus type II, controlled Start:14-Mar-2016 Instruction Type:Patient Education How to access health informa tion online - Detail Indication:Diabetes mellitus type II, controlled Start:14-Mar-2016 Instruction Type:Patient Education Patient Instructions Indication:Diabetes mellitus type II, controlled Start:14-Mar-2016 Instruction Type:Provider Instructions for Treatment How to access health informa tion online Indication:Diverticulitis Start:06-Dec-2015 Instruction Type:Patient Education How to access health informa tion online - Detail Indication:Diverticulitis Start:06-Dec-2015 Instruction Type:Patient Education Patient Instructions Indication:Diverticulitis Start:06-Dec-2015 Instruction Type:Provider Instructions for Treatment How to access health informa tion online Indication:Diarrhea Start:08-Nov-2015 Instruction Type:Patient Education How to access health informa tion online - Detail Indication:Diarrhea Start:08-Nov-2015 Instruction Type:Patient Education Patient Instructions Indication:Diarrhea Start:08-Nov-2015 Instruction Type:Provider Instructions for Treatment How to access health informa tion online Indication:Diabetes mellitus type II, controlled Start:20-Sep-2015 Instruction Type:Patient Education How to access health informa tion online - Detail Indication:Diabetes mellitus type II, controlled Start:20-Sep-2015 Instruction Type:Patient Education Patient Instructions Indication:Diabetes mellitus type II, controlled Start:20-Sep-2015 Instruction Type:Provider Instructions for Treatment How to access health informa tion online - Detail Indication:Diabetes mellitus type II, controlled Start:26-Apr-2015 Instruction Type:Patient Education Patient Instructions Indication:Diabetes mellitus type II, controlled Start:26-Apr-2015 Instruction Type:Provider Instructions for Treatment Patient Instructions Indication:Hyperlipidemia Start:11-Dec-2014 Instruction Type:Provider Instructions for Treatment Patient Instructions Indication:Myalgia Start:24-Nov-2014 Instruction Type:Provider Instructions for Treatment Patient Instructions Indication:Urinary frequency Start:27-May-2014 Instruction Type:Provider Instructions for Treatment Patient Instructions Indication:Leg swelling Start:12-May-2014 Instruction Type:Provider Instructions for Treatment obesity counseling Indication:BMI 31.0-31.9,adult Start:01-Dec-2013 Instruction Type:Provider Instructions for Treatment Patient Instructions Indication:Cough Start:03-Oct-2013 Instruction Type:Provider Instructions for Treatment Patient Instructions Indication:Vitamin D deficiency, unspecified Start:22-Jul-2013 Instruction Type:Provider Instructions for Treatment obesity counseling Indication:BMI 30.0-30.9,adult Start:09-May-2013 Instruction Type:Provider Instructions for Treatment Patient Instructions Indication:Diabetes mellitus type II, controlled Start:09-May-2013 Instruction Type:Provider Instructions for Treatment Patient Instructions Indication:Hyperlipidemia Start:16-Jan-2013 Instruction Type:Provider Instructions for Treatment Patient Instructions Indication:Diabetes mellitus type II, controlled Start:03-Dec-2012 Instruction Type:Provider Instructions for Treatment Patient Instructions Indication:Back pain (Renamed from Back ache) Start:30-Aug-2012 Instruction Type:Provider Instructions for Treatment Patient Instructions Indication:Vitamin D deficiency, unspecified Start:25-Jul-2012 Instruction Type:Provider Instructions for Treatment Patient Instructions Indication:Vitamin D deficiency, unspecified Start:03-Jul-2012 Instruction Type:Provider Instructions for Treatment Patient Instructions Indication:Fatigue Start:26-Jun-2012 Instruction Type:Provider Instructions for Treatment Additional Source Comments INFORMATION SOURCE (unrecogn ized section and content) DATE CREATED AUTHOR AUTHOR'S ORGANIZ ATION 01/13/2021 [facility] ([place]) Source Comments (unrecognize d section and content) In the event this informatio n is protected by the Federal Confidentiality of Alcohol and Drug Abuse Patient Records regulations: The Federal rules restrict any use of the information to criminally investigate or prosecute any alcohol or drug abuse patient.[facility] the event this information is protected by the Federal Confidentiality of Alcohol and Drug Abuse Patient Records regulations: The Federal rules restrict any use of the information to criminally investigate or prosecute any alcohol or drug abuse patient.[facility] Reason for Visit (unrecogniz ed section and content) Reason Comments New Telephone Encounter - Myriam Infante - 11/09/2020 10:26 AM EST Miscellaneous Notes (unrecog nized section and content) I left a voicemail for the patient to call back at their earliest convince to schedule an appointment with Dr.Wilkie Myriam Infante November 09, 2020 10:26 AM documented in this encounter FOR RECORDS PERTAINING TO PATIENTS WHO ARE OR HAVE BEEN ENROLLED IN A CHEMICAL DEPENDENCY/SUBSTANCEABUSE PROGRAM, SOME INFORMATION MAY BE OMITTED. This clinical summary was aggregated from multiple sources. Caution should be exercised in using it in the provision of clinical care. This summary normalizes information from multiple sources, and as a consequence, information in this document may materially change the coding, format and clinical context of patient data. In addition, data may be omitted in some cases. CLINICAL DECISIONS SHOULD BE BASED ON THE PRIMARY CLINICAL RECORDS. [employer] [facility]. provides no warranty or guarantee of the accuracy or completeness of information in this document.
== END | disposition home or self-care (01) ==
LOC: LABSPEC 09:16
PROVIDERS: PCP Family Medicine; Visit Provider Family Medicine
DX: N39.0 Urinary tract infection, site not specified (principal)
CPT/HCPCS: 87086; 87088

== ENCOUNTER → 2023-12-19 | Outpatient (CLI) | payer MEDICARE, SELFPAY ==
--- NOTE | 2023-12-19 10:10 | RAD_ITS ---
STUDY: X-RAY - LEFT SHOULDER REASON FOR EXAM: Female, 78 years old. Impingement syndrome. TECHNIQUE: 4 views of the left shoulder. COMPARISON: None. FINDINGS: Normal glenohumeral articulation. Normal acromioclavicular joint. Normal acromion. Normal humeral head and visualized proximal humerus. The soft tissue structures are unremarkable. Normal visualized pulmonary apex. There are sternal cerclage wires in place. There is atherosclerotic calcification of the aortic arch. RAD/Shoulder min 2 Views IMPRESSION: Normal x-ray examination of the left shoulder. Electronically Signed: Moi Pearce MD at 9:17 EDT ,
== END | disposition home or self-care (01) ==
PROVIDERS: PCP Family Medicine; Referring Provider Family Medicine; Visit Provider Family Medicine
DX: M75.42 Impingement syndrome of left shoulder (principal)
CPT/HCPCS: 73030

== ENCOUNTER → 2024-02-10 | Outpatient (CLI) | payer MEDICARE, SELFPAY | END | disposition home or self-care (01) | LOC: LABSPEC 14:23 | PROVIDERS: PCP Family Medicine; Visit Provider Nurse Practitioner Family | DX: N39.0 Urinary tract infection, site not specified (principal) | CPT/HCPCS: 87077; 87086; 87088; 87186 ==

== ENCOUNTER → 2024-06-26 | Outpatient (CLI) | payer MEDICARE, SELFPAY ==
[2024-06-26 18:03] LABS: Color, Urine Yellow (Yellow); Glucose, Dipstick Normal (Normal); Ketone-Dipstick Negative (Negative); Leukocyte Esterase-Dipstick 25 /ul (Negative); Nitrite-Dipstick Negative (Negative); Occult Blood-Urine Negative /ul (Negative); Protein-Dipstick 15 mg/dl (Negative); Urine Bilirubin Dipstick Negative (Negative); Urine Clarity Sl. Cloudy (Clear); Urine Urobilinogen Normal (Normal)
== END | disposition home or self-care (01) ==
LOC: BFHLAB 15:11 → LABSPEC 15:20
PROVIDERS: PCP Family Medicine; Referring Provider Family Medicine; Visit Provider Family Medicine
DX: N30.00 Acute cystitis without hematuria (principal)
CPT/HCPCS: 81002; 87086

== ENCOUNTER → 2024-09-01 | Outpatient (CLI) | payer MEDICARE, SELFPAY ==
[2024-09-01 17:42] LABS: Absolute Lymphocyte Count 1.97 X10^3/uL (0.83-4.51); Absolute Neutrophil Count 4.6 X10^3/uL (2.0-7.7); Basophil# 0.05 X10^3/uL; Basophil% 0.7 % (0-1); Eosinophil# 0.22 X10^3/uL; Hematocrit 37.5 % (37-47); Hemoglobin 11.7 g/dL (12.0-15.0); Lymphocyte # 1.97 X10^3/ul (0.83-4.51); Lymphocyte % 27.1 % (19-41); Mean Corp Hgb Conc 31.2 g/dL (32-36); Mean Corpuscular Hgb 28.7 pg (27.0-32.0); Mean Corpuscular Volume 92.1 fL (81-99); Mean Platelet Vol. 11.1 fl (6.2-12.0); Monocyte# 0.43 X10^3/uL; Monocyte% 5.9 % (0-10); NRBC Flagged by Analyzer 0 % (0-5); Neutrophil # 4.57 X10^3/uL (2.7-7.7); Platelet Count 235 K/mm3 (150-450); RBC Distribution Width CV 13.4 % (11.6-14.6); RBC Distribution Width SD 44.9 fl (35.1-43.9); Red Blood Count 4.07 M/mm3 (4.2-5.4); White Blood Count 7.3 K/mm3 (4.4-11.0)
[2024-09-01 18:45] LABS: ALB/GLOB Ratio 1.1 RATIO (0.9-2.4); AST(SGOT) 18 U/L (15-37); Alanine Aminotransfer ALT/SGPT 20 U/L (13-56); Albumin, Serum 3.8 g/dL (3.2-5.0); Alkaline Phosphatase 42 U/L (45-117); Anion Gap 2 (5-15); BUN 29 mg/dL (7-18); BUN/Creat Ratio 28.7 RATIO (10-20); Calcium,Total 9.5 mg/dL (8.5-10.1); Chloride 110 mmol/L (98-107); Cholesterol 190 mg/dL (200); Creatinine, Serum 1.01 mg/dL (0.55-1.02); EST Glomerular Filtration Rate 56 mL/min (>60); Est Glom Filt Rate - Afr Amer 68 mL/min (>60); Globulin 3.5 g/dL (2.2-4.2); Glucose 87 mg/dL (74-106); High Density Lipoprotein 73 mg/dL; Potassium 4.3 mmol/L (3.5-5.1); Protein, Total 7.3 g/dL (6.4-8.2); Sodium Level 142 mmol/L (136-145); Triglycerides 173 mg/dL; Very Low Density Lipoprotein 35 mg/dL (5-40)
[2024-09-01 19:12] LABS: Vitamin D,25 Hydroxy 41.9 ng/mL
== END | disposition home or self-care (01) ==
LOC: BFHLAB 14:12
PROVIDERS: PCP Family Medicine; Referring Provider Family Medicine; Visit Provider Family Medicine
DX: I25.10 Atherosclerotic heart disease of native coronary artery without angina pectoris (principal); I10 Essential (primary) hypertension; E55.9 Vitamin D deficiency, unspecified; R73.01 Impaired fasting glucose
CPT/HCPCS: 36415; 80053; 80061; 82306; 83036; 85025

== ENCOUNTER → 2024-09-19 | Outpatient (CLI) | payer MEDICARE, SELFPAY ==
--- NOTE | 2024-09-19 08:47 | ECHOCS_ITS ---
Reason For Study: AORTIC STENOSIS Procedure This was a 2D Doppler, Color Flow transthoracic echocardiogram. Contrast injection was performed. Exam performed in department. Left Ventricle Normal LV size. Left ventricular systolic function is normal. The left ventricular ejection fraction is 60 %. No regional wall motion abnormalities noted. Right Ventricle Normal RV size. Normal systolic function. Atria Normal left atrium. Normal right atrium. Mitral Valve Normal mitral valve. Tricuspid Valve Normal tricuspid valve. Aortic Valve Trisinus/trileaflet aortic valve. Moderate focal aortic valve calcification. Peak aortic valve gradient 57 mmHg. Mean aortic valve gradient 27 mmHg. Moderate aortic stenosis. Pulmonic Valve Normal pulmonic valve. Great Vessels Normal aortic root. The pulmonary is not well visualized. Normal inferior vena cava. Pericardium/Pleural No pericardial effusion. Medication 22 gauge I.V. with prn adaptor inserted into right arm. [id number] given slow IV push to enhance endocardial definition. MMode/2D Measurements & Calculations LVIDd: 3.8 cm IVSd: 0.82 cm LVOT diam: 2.0 cm LVIDs: 2.6 cm LVPWd: 0.85 cm RVDd: 3.3 cm FS: 32.5 % LVOT area: 3.2 cm2 Ao root diam: 3.3 cm asc Aorta Diam: 3.4 cm LAV(MOD-bp): 53.6 ml LAV(MOD-bp) Indexed: 32.5 ml/m2 LAV(MOD-sp2): 45.2 ml LAV(MOD-sp4): 52.4 ml Ao sinus diam: 2.[address] Junction: 1.8 cm LA A4 area: 17.6 cm2 LA dimension(2D): 4.2 cm RA A4 area: 14.3 cm2 TAPSE: 1.6 cm Time Measurements MV dec time: 0.30 sec Doppler Measurements & Calculations MV E max phuc: 63.9 cm/sec Lat Peak E' Phuc: 7.4 cm/sec Med Peak E' Phuc: 4.4 cm/sec MV A max phuc: 100.7 cm/sec E/E' lat: 8.6 E/E' med: 14.4 MV E/A: 0.63 MV V2 max: 103.6 cm/sec MV P1/2t max phuc: 78.6 cm/sec Ao V2 max: 382.9 cm/sec MV max P.3 mmHg MV P1/2t: 124.0 msec Ao max P.6 mmHg MV V2 mean: 47.4 cm/sec Ao V2 mean: 239.4 cm/sec MV mean P.1 mmHg MV dec slope: 185.6 cm/sec2 Ao mean P.2 mmHg MV V2 VTI: 39.6 cm MVA(P1/2t): 1.8 cm2 Ao V2 VTI: 91.4 cm AV (velocity ratio): 0.35 MVA(VTI): 2.6 cm2 CRUZ(I,D): 1.1 cm2 CRUZ(V,D): 0.99 cm2 LV V1 max: 119.1 cm/sec SV(LVOT): 102.1 ml PA V2 max: 97.1 cm/sec LV V1 max P.7 mmHg PA V2 mean: 69.7 cm/sec LV V1 mean P.5 mmHg LV V1 mean: 89.2 cm/sec LV V1 VTI: 31.9 cm TR max phuc: 262.5 cm/sec TR max P.6 mmHg ECHO/Echo Complete W/ Contrast Interpretation Summary Normal LV size. Left ventricular systolic function is normal. The left ventricular ejection fraction is 60 %. Moderate focal aortic valve calcification. Mean aortic valve gradient 27 mmHg. Moderate aortic stenosis. Contrast injection was performed. Ordering Physician: Abelardo Mas Referring Physician: Abelardo Mas Performed By: Blair Munson RCS
== END | disposition home or self-care (01) ==
PROVIDERS: PCP Family Medicine; Referring Provider Family Medicine; Visit Provider Family Medicine
DX: I35.0 Nonrheumatic aortic (valve) stenosis (principal)
CPT/HCPCS: 93306; Q9957; A4216; C8929